=== PATIENT | female | born 1955 | race Caucasian/White ===

== ENCOUNTER → 2017-04-29 | Outpatient (CLI) | payer BC ==
--- NOTE | 2017-04-29 08:31 | WOMENS IMAGING REPORT ---
EXAM DESCRIPTION: BILAT SCREENING MAMMO W/CAD COMPLETED DATE/TIME: 04/29/2017 8:01 am REASON FOR STUDY: Z12.31, ROUTINE SCREENING MAMMO Z12.31 ENCNTR SCREEN MAMMOGRAM FOR MALIGNANT NEOP LASM OF EL COMPARISON: None. TECHNIQUE: Standard craniocaudal and mediolateral oblique views of each breast recorded using ORDISSIMOa l acquisition. LIMITATIONS: None. FINDINGS: RIGHT BREAST MASSES: No suspicious masses. CALCIFICATIONS: No new or suspicious calcifications. ARCHITECTURAL DISTORTION: None. DEVELOPING DENSITY: None. ASYMMETRY: None noted. OTHER: No other significant findings. LEFT BREAST MASSES: No suspicious masses. CALCIFICATIONS: Calcifications in the MLO view either in the axial or or axillary tail of the breast. 13 cm the nipple. Other possibility is that this represents artifact from deodorant or powder. ARCHITECTURAL DISTORTION: None. DEVELOPING DENSITY: None. ASYMMETRY: None noted. OTHER: No other significant findings. Read with the assistance of CAD. .[facility] - R2 Cenova Version 1.3 .[facility] Imaging - R2 Cenova Version 1.3 .[facility] - R2 Cenova Version 2.4 .[facility] - R2 Cenova Version 2.4 .[facility] - R2 Tug Hand Version 9.2 IMPRESSION: Calcifications versus artifact left MLO view likely axillary tail or axilla. BREAST DENSITY: b. There are scattered areas of fibroglandular density. BIRAD: 0 Incomplete: Needs Additional Imaging Evaluation and/or prior Mammograms for Comparison. RECOMMENDATION: RECOMMENDED FOLLOW-UP: Repeat MLO and mL. Magnification imaging if indicated. The patient will be contacted for additional imaging. COMMENT: The patient has been notified of the results by letter per SA requirements. Additional no tification policies are in place for contacting patient with suspicious or incomplete findings. Quality ID #[id number]: The [employer] recommends an annual screening mammogram for women aged 40 years or over. This facility utilizes a reminder system to ensure that all patients receive reminder letters, and/or direct phone calls for appointments. This includes reminders for routine scr eening mammograms, diagnostic mammograms, or other Breast Imaging Interventions when appropriate. Th is patient will be placed in the appropriate reminder system. The [employer] (ACR) has developed recommendations for screening MRI of the breast s in certain patient populations, to be used in conjunction with mammography. Breast MRI surveillanc e may be appropriate for women with more than 20% lifetime risk of developing breast cancer as deter mined by genetic testing, significant family history of the disease, or history of mantle radiation f or Hodgkins Disease. ACR Practice Guidelines 2008. TECHNICAL DOCUMENTATION: FINDING NUMBER: (1) ASSESSMENT: (1) JOB ID: [id number] [employer]- All Rights Reserved
== END ==
LOC: WI 07:14
PROVIDERS: ATTEND Nurse Practitioner
DX: Z12.31 Encounter for screening mammogram for malignant neoplasm of breast (principal); R92.0 Mammographic microcalcification found on diagnostic imaging of breast
CPT/HCPCS: 77067; G0202

== ENCOUNTER → 2017-05-11 | Outpatient (CLI) | payer BC ==
--- NOTE | 2017-05-11 15:24 | WOMENS IMAGING REPORT ---
EXAM DESCRIPTION: LEFT DIG DX MAMMO NO CHG COMPLETED DATE/TIME: 05/11/2017 10:05 am REASON FOR STUDY: INCONCLUSIVE MAMMO;R92.2 R92.0 MAMMOGRAPHIC MICROCALCIFICATION FOUND ON DX IMAGIN G OF COMPARISON: 04/29/2017 and 01/03/2016. TECHNIQUE: Additional images include a true lateral view, MLO view, and exaggerated CCL view. The s tudy was obtained after the skin of the axilla was cleansed to remove any underlying deodorant and/or powder. LIMITATIONS: None. FINDINGS: BREAST: left MASSES: No suspicious masses. CALCIFICATIONS: No new or suspicious calcifications. Previous mammographic findings no longer presen t. ARCHITECTURAL DISTORTION: None. DEVELOPING DENSITY: None. ASYMMETRY: None noted. OTHER: No other significant findings. IMPRESSION: Findings noted on screening mammography are not apparent on the repeat study, consistent with artifact due to deodorant or powder on the skin. BREAST DENSITY: c. The breasts are heterogeneously dense, which may obscure small masses. BIRAD: 1 Negative. RECOMMENDATION: RECOMMENDED FOLLOW UP: Birads 1 or 2: The patient should resume routine screening . SPECIFIC INTERVENTION/IMAGING/CONSULTATION RECOMMENDED:No additional intervention/ imaging/consultati on needed at this time. COMMUNICATION:The negative/benign results were communicated to the patient. COMMENT: The patient has been notified of the results by letter per SA requirements. Additional no tification policies are in place for contacting patient with suspicious or incomplete findings. Quality ID #[id number]: The [employer] recommends an annual screening mammogram for women aged 40 years or over. This facility utilizes a reminder system to ensure that all patients receive reminder letters, and/or direct phone calls for appointments. This includes reminders for routine scr eening mammograms, diagnostic mammograms, or other Breast Imaging Interventions when appropriate. Th is patient will be placed in the appropriate reminder system. The [employer] (ACR) has developed recommendations for screening MRI of the breast s in certain patient populations, to be used in conjunction with mammography. Breast MRI surveillanc e may be appropriate for women with more than 20% lifetime risk of developing breast cancer as deter mined by genetic testing, significant family history of the disease, or history of mantle radiation f or Hodgkins Disease. ACR Practice Guidelines 2008. TECHNICAL DOCUMENTATION: FINDING NUMBER: (1) ASSESSMENT: (1) JOB ID: [id number] [facility] [employer]- All Rights Reserved
== END ==
LOC: WI 09:07
PROVIDERS: ATTEND Nurse Practitioner
DX: R92.2 Inconclusive mammogram (principal)

== ENCOUNTER 2018-03-08 06:55 | Inpatient (IN) | payer BC ==
[2018-03-08] MEDS ORDERED: FENTANYL CITRATE INJ/PF 100 MCG/2 ML AMPUL IV ONE ×3 (07:17→13:30)
[2018-03-08] MEDS ORDERED: ONDANSETRON HCL INJ/PF 4 MG/2 ML SDV IV ONE (07:17)
--- NOTE | 2018-03-08 07:20 | ER Document Report ---
ED General - General Chief Complaint: Hip Pain Stated Complaint: FALL,HIP PAIN Time Seen by Provider: 03/08/18 07:04 Mode of Arrival: Medic Information source: Patient Notes: 62-year-old female with a history of hypertension, depression, anxiety [place] the airport with complaint of left hip and left leg pain after a trip and fall. Patient states that she was attempting to put on her shoes after going through security when she lost her balance and fell on her left side. She denies any head injury or loss of consciousness. She denies prior injury to this leg. She denies any preceding dizziness, visual changes, nausea , diaphoresis, chest pain, shortness of breath, abdominal pain, back pain, dysuria, hematuria, fever, chills. Patient states that she is on her way to see her daughter who is being induced in [place] and that security thought that she had "explosives on me". TRAVEL OUTSIDE OF THE [place] IN LAST 30 DAYS: No COUNTRY TRAVELED TO/FROM: [facility] Onset: Just prior to arrival Onset/Duration: Sudden Quality of pain: Achy, Throbbing Severity: Moderate Pain Level: 2 Associated symptoms: None Exacerbated by: Movement Relieved by: Remaining still Similar symptoms previously: No Recently seen / treated by doctor: No - Related Data Allergies/Adverse Reactions: oxycodone [Oxycodone] Adverse Reaction (Severe, Verified 11/06/14 14:33) nausea/vomiting Past Medical History - General Information source: Patient - Social History Smoking Status: Unknown if Ever Smoked Chew tobacco use (# tins/day): No Frequency of alcohol use: None Drug Abuse: None Family History: Reviewed & Not Pertinent Patient has suicidal ideation: No Patient has homicidal ideation: No - Past Medical History Cardiac Medical History: Reports: Hx Hypertension - meds 14 yrs Denies: Hx Coronary Artery Disease, Hx Heart Attack Pulmonary Medical History: Reports: Hx Pneumonia - walking 1993 Denies: Hx Asthma, Hx Bronchitis, Hx COPD Neurological Medical History: Denies: Hx Cerebrovascular Accident, Hx Seizures Renal/ Medical History: Denies: Hx Peritoneal Dialysis Musculoskeltal Medical History: Reports Hx Arthritis - hand/ left numb Past Surgical History: Reports: Hx Section - x2, Hx Hysterectomy - Immunizations Hx Diphtheria, Pertussis, Tetanus Vaccination: No Review of Systems - Review of Systems Notes: She denies any preceding dizziness, visual changes, nausea, diaphoresis, chest pain, shortness of breath, abdominal pain, back pain, dysuria, hematuria, fever , chills. Physical Exam - Vital signs Vitals: Temp Pulse Resp BP Pulse Ox 98.6 F 60 18 110/62 100 03/08/18 06:58 03/08/18 06:58 03/08/18 06:58 03/08/18 06:58 03/08/18 06:58 Interpretation: Normal. No: Hypertensive, Tachycardic, Hypoxic, Tachypneic, Febrile - Notes Notes: PHYSICAL EXAMINATION: GENERAL: Well-appearing, well-nourished and in no acute distress. HEAD: Atraumatic, normocephalic. EYES: Pupils equal round and reactive to light, extraocular movements intact, conjunctiva are normal. ENT: Nares patent, oropharynx clear without exudates. Moist mucous membranes. NECK: Normal range of motion, supple without lymphadenopathy LUNGS: Breath sounds clear to auscultation bilaterally and equal. No wheezes rales or rhonchi. HEART: Regular rate and rhythm without murmurs ABDOMEN: Soft, nontender, nondistended abdomen. No guarding, no rebound. No masses appreciated. Female : deferred Musculoskeletal: Decreased range of motion of the left hip, no obvious deformity , DP pulse intact, patient able to wiggle her toes. Tenderness to palpation over the left greater trochanter. No pitting or edema. No cyanosis. NEUROLOGICAL: Cranial nerves grossly intact. Normal speech, normal gait. Normal sensory, motor exams PSYCH: Normal mood, normal affect. SKIN: Warm, Dry, normal turgor, no rashes or lesions noted. Course - Re-evaluation Re-evalutation: Laboratory 03/08/18 03/08/18 03/08/18 06:39 06:39 06:39 WBC 5.7 RBC 4.16 Hgb 13.6 Hct 39.9 MCV 96 MCH 32.6 MCHC 34.0 RDW 12.9 Plt Count 100 L Seg Neutrophils % 47.8 Lymphocytes % 37.5 Monocytes % 11.5 Eosinophils % 2.4 Basophils % 0.8 Absolute Neutrophils 2.7 Absolute Lymphocytes 2.2 Absolute Monocytes 0.7 Absolute Eosinophils 0.1 Absolute Basophils 0.0 PT 14.9 INR 1.12 APTT 32.1 Sodium 145.5 H Potassium 3.8 Chloride 108 H Carbon Dioxide 23 Anion Gap 15 BUN 12 Creatinine 0.63 Est GFR ( Amer) > 60 Est GFR (Non-Af Amer) > 60 Glucose 128 H Calcium 9.5 Total Bilirubin 0.5 Direct Bilirubin 0.5 H Neonat Total Bilirubin Not Reportable Neonat Direct Bilirubin Not Reportable Neonat Indirect Bili Not Reportable AST 43 H ALT 35 Alkaline Phosphatase 103 Total Protein 7.3 Albumin 4.0 Serum Alcohol 159 Pelvis X-Ray 03/08/18 07:16 IMPRESSION: Acute left proximal femoral intertrochanteric fracture. Femur X-Ray 03/08/18 07:17 IMPRESSION: Acute left proximal femoral intertrochanteric fracture with moderate varus angulation 03/08/18 07:24 62-year-old female with a history of hypertension, depression, anxiety presents via EMS from the airport with complaint of left hip and left leg pain after a trip and fall. Patient states that she was attempting to put on her shoes after going through security when she lost her balance and fell on her left side. She denies any head injury or loss of consciousness. Vital signs stable upon arrival. Patient does not appear toxic or dehydrated. She is in no acute distress. Patient did receive fentanyl, Zofran. Imaging of her left hip pending. 03/08/18 08:33 Patient made aware of the findings of a left hip fracture. She requests that I speak to her doctor Dr. Escamilla. I did attempt to contact her PCP and was told she is out of the office for the rest of the week with no one covering. The nurse product marketing programs manager suggested that patient be transferred to [facility]. I did discuss this with the patient who is hesitant and will let me know when she talks to her daughter. Patient requesting additional pain medication. 03/08/18 08:44 Patient now wants to stay here at [facility]. I have attempted to contact Dr. Espinal orthopedic surgeon on-call. Awaiting return call. Patient still complaining of pain additional fentanyl was administered. 03/08/18 09:[address] Espinal who is requesting hospitalist admission with Ortho consult. Patient reports her last meal was 1 day prior to arrival. 03/08/18 09:24 Patient accepted by hospitalist. - Vital Signs Vital signs: Temp Pulse Resp BP Pulse Ox 98.6 F 60 18 110/62 100 03/08/18 06:58 03/08/18 06:58 03/08/18 06:58 03/08/18 06:58 03/08/18 06:58 - Laboratory Result Diagrams: 03/08/18 06:39 03/08/18 06:39 Laboratory results interpreted by me: 03/08/18 03/08/18 06:39 06:39 Plt Count 100 L Sodium 145.5 H Chloride 108 H Glucose 128 H Direct Bilirubin 0.5 H AST 43 H - Diagnostic Test Radiology reviewed: Image reviewed Discharge - Discharge Clinical Impression: Intertrochanteric fracture of femur Qualifiers: Encounter type: initial encounter Fracture type: closed Fracture alignment: displaced Laterality: left Qualified Code(s): S72.142A - Displaced intertrochanteric fracture of left femur, initial encounter for closed fracture Fall Qualifiers: Encounter type: initial encounter Qualified Code(s): W19.XXXA - Unspecified fall, initial encounter Condition: Good Disposition: ADMITTED INPATIENT Admitting Provider: Hospitalist
[2018-03-08 08:07] LABS: ABSOLUTE EOSINOPHILS # (AUTO) 0.1 10^3/uL (0.0-0.6); ABSOLUTE LYMPHOCYTES (AUTO) 2.2 10^3/uL (0.5-4.7); ABSOLUTE MONOCYTES (AUTO) 0.7 10^3/uL (0.1-1.4); ABSOLUTE NEUT (AUTO) 2.7 10^3/uL (1.7-8.2); BASOPHILS % (AUTO) 0.8 % (0-2); EOSINOPHILS % (AUTO) 2.4 % (0-6); HEMATOCRIT 39.9 % (36.0-47.0); HEMOGLOBIN 13.6 g/dL (12.0-15.5); LYMPHOCYTES % (AUTO) 37.5 % (13-45); MEAN CORPUSCULAR HEMOGLOBIN 32.6 pg (27.0-33.4); MEAN CORPUSCULAR VOLUME 96 fl (80-97); MONOCYTES % (AUTO) 11.5 % (3-13); PLATELET COUNT 100 10^3/uL (150-450); RED BLOOD COUNT 4.16 10^6/uL (3.72-5.28); RED CELL DISTRIBUTION WIDTH 12.9 % (11.5-14.0); SEGMENTED NEUTROPHILS % (AUTO) 47.8 % (42-78); TOTAL CELLS COUNTED % (AUTO) 100 %; WHITE BLOOD COUNT 5.7 10^3/uL (4.0-10.5)
[2018-03-08 08:11] LABS: INTERNATIONAL RATION (INR) 1.12; PROTHROMBIN TIME 14.9 SEC (11.4-15.4)
[2018-03-08 08:12] LABS: PARTIAL THROMBOPLASTIN TIME 32.1 SEC (23.5-35.8)
[2018-03-08 08:15] LABS: ALANINE AMINOTRANSFERASE 35 U/L (9-52); ALCOHOL 159 mg/dL (NONE DETECTED); ALKALINE PHOSPHATASE 103 U/L (38-126); ANION GAP 15 (5-19); ASPARTATE AMINO TRANSFERASE 43 U/L (14-36); BILIRUBIN,DIRECT 0.5 mg/dL (0.0-0.4); BILIRUBIN,TOTAL 0.5 mg/dL (0.2-1.3); BLOOD UREA NITROGEN 12 mg/dL (7-20); CALCIUM 9.5 mg/dL (8.4-10.2); CARBON DIOXIDE 23 mmol/L (22-30); CHLORIDE 108 mmol/L (98-107); GLUCOSE 128 mg/dL (75-110); POTASSIUM 3.8 mmol/L (3.6-5.0); SODIUM 145.5 mmol/L (137-145); TOTAL PROTEIN 7.3 g/dL (6.3-8.2)
--- NOTE | 2018-03-08 09:08 | RADIOLOGY REPORT (SQ) ---
EXAM DESCRIPTION: PELVIS AP COMPLETED DATE/TIME: 03/08/2018 7:44 am REASON FOR STUDY: fall COMPARISON: Left femur films same date NUMBER OF VIEWS: One view TECHNIQUE: AP Pelvis LIMITATIONS: None. FINDINGS: MINERALIZATION: Osteopenic HIPS: Acute left femoral intertrochanteric proximal femur fracture with moderate varus angulation. R eport called to the emergency room to the patient's nurse at the time of dictation. Right hip intact. PELVIS AND SACRUM: No acute fracture or dislocation. No worrisome bone lesions. PUBIS AND ISCHIUM: No acute fracture. LOWER LUMBAR SPINE: Bilateral facet arthropathy at L4-5 and L5-S1. SOFT TISSUES: Clips right upper quadrant post cholecystectomy OTHER: No other significant finding. IMPRESSION: Acute left proximal femoral intertrochanteric fracture. COMMENT: Matrix TECHNICAL DOCUMENTATION: JOB ID: [id number] [employer]- All Rights Reserved Reading location - IP/workstation name: [email or web address]
--- NOTE | 2018-03-08 09:09 | RADIOLOGY REPORT (SQ) ---
EXAM DESCRIPTION: FEMUR LEFT COMPLETED DATE/TIME: 03/08/2018 7:44 am REASON FOR STUDY: fall COMPARISON: None. NUMBER OF VIEWS: Two views. TECHNIQUE: Two radiographic images acquired of the left femur to include hip and knee in at least on e projection. LIMITATIONS: None. FINDINGS: MINERALIZATION: Osteopenic BONES: Acute left proximal femoral intertrochanteric fracture with moderate varus angulation. SOFT TISSUES: No obvious swelling or foreign body. OTHER: No other significant finding. IMPRESSION: Acute left proximal femoral intertrochanteric fracture with moderate varus angulation COMMENT: Matrix TECHNICAL DOCUMENTATION: JOB ID: [id number] [employer]- All Rights Reserved Reading location - IP/workstation name: [email or web address]
[2018-03-08] MEDS ORDERED: RINGERS SOLUTION,LACTATED 1,000 ML IV PRN ×2 (10:29→17:26)
[2018-03-08 11:37] LABS: APPEARANCE,URINE SLIGHTLY-CLOUDY; BILIRUBIN,URINE NEGATIVE (NEGATIVE); COLOR,URINE YELLOW; GLUCOSE, URINE NEGATIVE (NEGATIVE); KETONES,URINE NEGATIVE (NEGATIVE); LEUKOCYTE ESTERASE,URINE NEGATIVE (NEGATIVE); NITRITE,URINE NEGATIVE (NEGATIVE); PROTEIN,URINE NEGATIVE (NEGATIVE); URINE SPECIFIC GRAVITY 1.011; UROBILINOGEN,URINE NEGATIVE mg/dL (<2.0)
[2018-03-08 11:49] LABS: URINE AMPHETAMINES SCREEN NEGATIVE; URINE BARBITURATES SCREEN NEGATIVE; URINE BENZODIAZEPINES SCREEN UNCONFIRMED POSITIVE; URINE COCAINE SCREEN NEGATIVE; URINE MARIJUANA (THC) SCREEN NEGATIVE; URINE METHADONE SCREEN NEGATIVE; URINE PHENCYCLIDINE SCREEN NEGATIVE
--- NOTE | 2018-03-08 13:31 | EKG REPORT ---
SEVERITY:- ABNORMAL ECG - SINUS RHYTHM PROBABLE LEFT ATRIAL ABNORMALITY BORDERLINE INFERIOR Q WAVES BORDERLINE PROLONGED QT INTERVAL : Confirmed by: Rio Breen MD 08-Mar-2018 13:30:27
[2018-03-08] MEDS ORDERED: DEXTROSE 40% GEL 15 GM TUBE PO PRN ×2 (17:07)
[2018-03-08] MEDS ORDERED: GLUCAGON,HUMAN RECOMB 1 MG INJ SUBCUT PRN (17:07)
[2018-03-08] MEDS ORDERED: DEXTROSE 50%-WATER 25 GM/50 ML DISP.SYRIN IV PRN ×2 (17:07)
--- NOTE | 2018-03-08 17:07 | PDOC CONSULTATION ---
Consultation Consult Date: 03/08/18 History of Present Illness Admission Date/PCP: 03/08/18 11:13 Patient complains of: Left Hip Pain History of Present Illness: YEVGENIY ODONNELL is a 62 year old female who was preparing to fly to [place] for the induction of her grand child. When apparently she sustained a fall onto her left hip during security at the airport. Patient had significant pain and inability to weight-bear. She was brought to the emergency room where x- rays demonstrated a fracture. Patient denies numbness or tingling. Pain / . Pain has improved with fentanyl but only short-lived. Past Medical History Cardiac Medical History: Reports: Hypertension - meds 14 yrs Denies: Coronary Artery Disease, Myocardial Infarction Pulmonary Medical History: Reports: Pneumonia - walking 1993 Denies: Asthma, Bronchitis, Chronic Obstructive Pulmonary Disease (COPD) Neurological Medical History: Denies: Seizures Musculoskeltal Medical History: Reports: Arthritis - hand/ left numb Hematology: Denies: Anemia Past Surgical History Past Surgical History: Reports: Section - x2, Hysterectomy Social History Smoking Status: Unknown if Ever Smoked Family History Family History: Reviewed & Not Pertinent Parental Family History Reviewed: No Children Family History Reviewed: No Sibling(s) Family History Reviewed.: No Medication/Allergy Home Medications: Bupropion HCl [Wellbutrin Xl 150 mg 24hr Tablet] 150 mg PO DAILY 03/08/18 Butalb/Acetaminophen/Caffeine [Fioricet (50-325-40 mg) Tablet] 1 tab PO Q6HP PRN 03/08/18 Citalopram Hydrobromide [Celexa 20 mg Tablet] 20 mg PO QHS 03/08/18 Diazepam [Valium 5 mg Tablet] 5 mg PO DAILYP PRN 03/08/18 Hydrochlorothiazide [Hydrodiuril 25 mg Tablet] 25 mg PO QAM 03/08/18 Rizatriptan Benzoate [Maxalt] 10 mg PO ASDIR PRN 03/08/18 Topiramate [Topamax] 150 mg PO QHS 03/08/18 Allergies/Adverse Reactions: oxycodone [Oxycodone] Adverse Reaction (Severe, Verified 11/06/14 14:33) nausea/vomiting Review of Systems Constitutional: ABSENT: chills, fever(s), headache(s), weight gain, weight loss Eyes: ABSENT: visual disturbances Ears: ABSENT: hearing changes Cardiovascular: ABSENT: chest pain, dyspnea on exertion, edema, orthropnea, palpitations Respiratory: ABSENT: cough, hemoptysis Gastrointestinal: ABSENT: abdominal pain, constipation, diarrhea, hematemesis, hematochezia, nausea, vomiting Genitourinary: ABSENT: dysuria, hematuria Musculoskeletal: PRESENT: as per HPI Integumentary: ABSENT: rash, wounds Neurological: ABSENT: abnormal gait, abnormal speech, confusion, dizziness, focal weakness, syncope Psychiatric: ABSENT: anxiety, depression, homidical ideation, suicidal ideation Endocrine: ABSENT: cold intolerance, heat intolerance, menstrual abnormalities, polydipsia, polyuria Hematologic/Lymphatic: ABSENT: easy bleeding, easy bruising, lymphadenopathy Physical Exam Vital Signs: Temp Pulse Resp BP Pulse Ox 98.6 F 60 18 110/62 100 03/08/18 06:58 03/08/18 06:58 03/08/18 06:58 03/08/18 06:58 03/08/18 06:58 General appearance: PRESENT: no acute distress, well-developed, well-nourished Head exam: PRESENT: atraumatic, normocephalic Eye exam: PRESENT: conjunctiva pink, EOMI, PERRLA. ABSENT: scleral icterus Ear exam: PRESENT: normal external ear exam Mouth exam: PRESENT: dry mucosa, moist, tongue midline Neck exam: PRESENT: full ROM. ABSENT: carotid bruit, JVD, lymphadenopathy, thyromegaly Respiratory exam: PRESENT: unlabored Cardiovascular exam: PRESENT: RRR. ABSENT: diastolic murmur, rubs, systolic murmur Pulses: PRESENT: normal dorsalis pedis pul, +2 pedal pulses bilateral Vascular exam: PRESENT: normal capillary refill GI/Abdominal exam: PRESENT: normal bowel sounds, soft. ABSENT: distended, guarding, mass, organolmegaly, rebound, tenderness Rectal exam: PRESENT: deferred Musculoskeletal exam: PRESENT: other - Left hip: Short and externally rotated. Positive logroll. Intact plantar flexion/dorsiflexion. No sensory deficits. Limb length inequality noted. Dorsalis pedis pulse 2+. Notable swelling. Compartments soft and compressible no sign of compartment syndrome. Neurological exam: PRESENT: alert, awake, oriented to person, oriented to place , oriented to time, oriented to situation, CN II-XII grossly intact. ABSENT: motor sensory deficit Psychiatric exam: PRESENT: appropriate affect, normal mood. ABSENT: homicidal ideation, suicidal ideation Skin exam: PRESENT: dry, intact, warm. ABSENT: cyanosis, rash Results Impressions: Pelvis X-Ray 03/08/18 07:16 IMPRESSION: Acute left proximal femoral intertrochanteric fracture. Femur X-Ray 03/08/18 07:17 IMPRESSION: Acute left proximal femoral intertrochanteric fracture with moderate varus angulation Status: Image reviewed by me - I have reviewed patient's radiographs which demonstrate comminuted proximal peritrochanteric hip fracture with varus displacement. Assessment & Plan - Diagnosis (1) Intertrochanteric fracture of femur Qualifiers: Encounter type: initial encounter Fracture type: closed Fracture alignment: displaced Laterality: left Qualified Code(s): S72.142A - Displaced intertrochanteric fracture of left femur, initial encounter for closed fracture Is this a current diagnosis for this admission?: Yes Plan: Patient's radiographs demonstrate intertrochanteric left hip fracture. We discussed treatment options I have recommended operative intervention. Postoperative expectations, prognosis and outcomes have been explained to the patient including decreased ambulatory status, chronic pain and prolonged rehabilitation. Patient has verbalized understanding and consented for the procedure. Further risks include anesthetic complications, excessive bleeding, infection, injury to surrounding nerves, vessels and tendons, bruising, healing difficulties, scar formation, posttraumatic arthritis and any unforseen complication. Patient also understands she will likely require rehabilitation as an inpatient postoperatively. Plan will be to proceed with operative intervention of 03/09/18.
[2018-03-08] MEDS ORDERED: (PENDING PHARMACY ID) (Rizatriptan Benzoate [Maxalt] 10 MG) PO PRN (17:28)
[2018-03-08] MEDS ORDERED: ONDANSETRON HCL INJ/PF 4 MG/2 ML SDV IV PRN (17:30)
--- NOTE | 2018-03-08 17:35 | PDOC H&P ---
History of Present Illness Admission Date/PCP: 03/08/18 11:13 Patient complains of: Fall and left hip pain History of Present Illness: This is a 62-year-old woman who lives locally. She has a daughter in [place] and another daughter in [place]. The daughter in [place] is preparing to be induced for the of her first child. The patient has been preparing to go spend a month in [place] to be there for the and to help after the . Patient states that she was awake all night last night. She went to the airport this morning and was taken through security several times. She did not know what was going on and then was finally told that the TSA staff thought that she was caring explosives. She unfortunately missed her flight because of this. He was putting her shoes back on after being searched a final time she fell onto her left hip and sustained severe pain. EMS was called from the airport and she was brought to the [facility] for evaluation. She is found to have a left hip fracture. She is being admitted to the hospitalist service. Past Medical History Cardiac Medical History: Reports: Hypertension - meds 15 yrs Denies: Coronary Artery Disease, Myocardial Infarction Pulmonary Medical History: Reports: Pneumonia - walking 1993 Denies: Asthma, Bronchitis, Chronic Obstructive Pulmonary Disease (COPD) Neurological Medical History: Reports: Migraine, Other - Bilateral upper extremity tremor of unknown etiology. Endocrine Medical History: Denies: Diabetes Mellitus Type 2 Renal/ Medical History: Denies: Chronic Kidney Disease Malignancy Medical History: Reports: None GI Medical History: Denies: Cirrhosis Musculoskeltal Medical History: Reports: Arthritis - hand/ left numb Skin Medical History: Reports: None Psychiatric Medical History: Reports: Depression, General Anxiety Disorder Hematology: Denies: Anemia Infectious Medical History: Reports: Hepatitis C, Other Infectious History Note: She has undergone treatment for hep C which is now cleared. 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 She has about a 79-hoot-ucxa history. Frequency of Alcohol Use: Occasional - Patient's alcohol level was elevated in the ER this morning. I asked her about her drinking habits so that we could treat her appropriately. She states that she was up all night and she drank may be a few glasses of wine. She states that alcohol is not a problem for her. I do not know if this is accurate. She has never had an alcohol withdrawal syndrome. Hx Recreational Drug Use: Yes - Many years ago patient was an IV drug user. - Advance Directive Resuscitation Status: Other - Patient has struggled with depression and she is being treated for depression. I asked her if her CODE STATUS is related to her depression. She states that she is very clear about wanting to a natural when the time comes. She states her daughters are aware of her CODE STATUS. Surrogate healthcare decision maker:: Daughters Family History Parental Family History Reviewed: Yes - Since father multiple people on his side of the family have migraines Children Family History Reviewed: Yes - Children are healthy Sibling(s) Family History Reviewed.: Yes - Patient's brother had a AAA Medication/Allergy Home Medications: Bupropion HCl [Wellbutrin Xl 150 mg 24hr Tablet] 150 mg PO DAILY 03/08/18 Butalb/Acetaminophen/Caffeine [Fioricet (50-325-40 mg) Tablet] 1 tab PO Q6HP PRN 03/08/18 Citalopram Hydrobromide [Celexa 20 mg Tablet] 20 mg PO QHS 03/08/18 Diazepam [Valium 5 mg Tablet] 5 mg PO DAILYP PRN 03/08/18 Hydrochlorothiazide [Hydrodiuril 25 mg Tablet] 25 mg PO QAM 03/08/18 Rizatriptan Benzoate [Maxalt] 10 mg PO ASDIR PRN 03/08/18 Topiramate [Topamax] 150 mg PO QHS 03/08/18 Allergies/Adverse Reactions: oxycodone [Oxycodone] Adverse Reaction (Severe, Verified 11/06/14 14:33) nausea/vomiting Review of Systems Constitutional: ABSENT: chills, fever(s), headache(s) Eyes: ABSENT: visual disturbances Ears: ABSENT: hearing changes Nose, Mouth, and Throat: ABSENT: headache(s), sore throat Cardiovascular: ABSENT: chest pain, dyspnea on exertion, edema Respiratory: ABSENT: cough, dyspnea, sputum Gastrointestinal: ABSENT: abdominal pain, constipation, diarrhea, nausea, vomiting Genitourinary: ABSENT: difficulty urinating, dysuria, hematuria Musculoskeletal: ABSENT: back pain, joint swelling, muscle weakness Integumentary: ABSENT: diaphoresis, rash Neurological: PRESENT: tremor(s), weakness. ABSENT: confusion, frequent falls, numbness Psychiatric: PRESENT: anxiety, depression Endocrine: ABSENT: cold intolerance, heat intolerance Hematologic/Lymphatic: ABSENT: easy bleeding, easy bruising Allergic/Immunologic: ABSENT: seasonal rhinorrhea Physical Exam Vital Signs: Temp Pulse Resp BP Pulse Ox 98.6 F 60 18 110/62 100 03/08/18 06:58 03/08/18 06:58 03/08/18 06:58 03/08/18 06:58 03/08/18 06:58 General appearance: PRESENT: no acute distress, cooperative, thin Head exam: PRESENT: atraumatic Eye exam: PRESENT: conjunctiva pink, EOMI. ABSENT: scleral icterus Mouth exam: PRESENT: neck supple Neck exam: ABSENT: lymphadenopathy Respiratory exam: PRESENT: clear to auscultation mariana, unlabored. ABSENT: rales , rhonchi, wheezes Cardiovascular exam: PRESENT: RRR. ABSENT: systolic murmur Pulses: ABSENT: normal radial pulses GI/Abdominal exam: PRESENT: normal bowel sounds, soft. ABSENT: distended, firm , guarding, tenderness Rectal exam: PRESENT: deferred Gentrourinary exam: PRESENT: indwelling catheter, other - Clear yellow urine in Marshall bag Extremities exam: ABSENT: pedal edema Musculoskeletal exam: PRESENT: other - Left leg length shorter than right, left leg externally rotated. Neurovascularly intact laterally. Neurological exam: PRESENT: alert, awake, oriented to person, oriented to place , oriented to situation, CN II-XII grossly intact Psychiatric exam: PRESENT: appropriate affect. ABSENT: anxious, flat affect Skin exam: PRESENT: dry, intact, warm Results Impressions: Pelvis X-Ray 03/08/18 07:16 IMPRESSION: Acute left proximal femoral intertrochanteric fracture. Femur X-Ray 03/08/18 07:17 IMPRESSION: Acute left proximal femoral intertrochanteric fracture with moderate varus angulation Assessment & Plan - Diagnosis (1) Fracture, intertrochanteric, left femur Is this a current diagnosis for this admission?: Yes Plan: Patient has been seen by orthopedic surgeon who will operate tomorrow. She is n.p.o. at midnight. DVT prophylaxis will be 1 dose of heparin 5000 units subcu now and then we will reevaluate postoperatively. (2) Depression with anxiety Is this a current diagnosis for this admission?: Yes Plan: Continue citalopram and diazepam as needed (3) Hypertension Is this a current diagnosis for this admission?: Yes Plan: Patient is currently normotensive. Will restart her home medications. (4) Alcohol use Is this a current diagnosis for this admission?: Yes Plan: Patient had an elevated blood alcohol level this morning that reflected recent alcohol intake. She states she was up all night and maybe had a few glasses of wine. She denies that she has an alcohol abuse problem. We will monitor closely for signs and symptoms of withdrawal. She has mild transaminitis. (5) Transaminitis Is this a current diagnosis for this admission?: Yes Plan: Slightly elevated AST. Possibly secondary to alcohol use disorder. Patient also has a history of hep C which is been treated she states that it is cleared. (6) Hypernatremia Is this a current diagnosis for this admission?: Yes Plan: Likely due to dehydration. I started patient on normal saline and she will continue on IV fluids until the surgery. (7) Acute pain due to injury Is this a current diagnosis for this admission?: Yes Plan: Significant left hip pain. She cannot take oxycodone as it makes her very nauseated. She has been receiving fentanyl 50 mics doses in the ER. This has been very effective. I started her on a fentanyl patch 50 mics per hour and given precautions and parameters to nursing staff related to opioid use. - Time Time Spent: Greater than 70 Minutes Medications reviewed and adjusted accordingly: Yes Anticipated discharge: Acute Rehab - Inpatient Certification Based on my medical assessment, after consideration of the patient's comorbidities, presenting symptoms, or acuity I expect that the services needed warrant INPATIENT care.: Yes I certify that my determination is in accordance with my understanding of Medicare's requirements for reasonable and necessary INPATIENT services [42 CFR 412.3e].: Yes Medical Necessity: Significant Comorbidiites Make Outpatient Treatment Too Risky , Need Close Monitoring Due to Risk of Patient Decompensation, Need For IV Fluids, Need for Surgery, Risk of Complication if Not Cared For in Hospital
[2018-03-08] MEDS ORDERED: FENTANYL 100 MCG/HR PATCH.TD72 TD ONE (18:00)
[2018-03-08] MEDS ORDERED: HEPARIN SOD (PORCINE) 5,000 UNIT/ML 1 ML SYRINGE SUBCUT ONE (18:00)
[2018-03-08] MEDS: BUPROPION HCL 75 MG TABLET PO SCH (20:44)
[2018-03-08] MEDS: TOPIRAMATE 100 MG TABLET PO SCH (20:45)
[2018-03-08] MEDS: CITALOPRAM HYDROBROMIDE 20 MG TABLET PO SCH (20:45)
[2018-03-08] MEDS ORDERED: (PENDING PHARMACY ID) (Topiramate [Topamax] 150 MG) PO SCH (22:00)
[2018-03-08] MEDS: DIAZEPAM 5 MG TABLET PO PRN (23:25)
[2018-03-09] MEDS ORDERED: ACETAMINOPHEN 325 MG TABLET PO PRN (05:09)
[2018-03-09 07:06] LABS: HEMATOCRIT 38.2 % (36.0-47.0); MEAN CORPUSCULAR HEMOGLOBIN 32.7 pg (27.0-33.4); MEAN CORPUSCULAR HGB CONC 34.1 g/dL (32.0-36.0); MEAN CORPUSCULAR VOLUME 96 fl (80-97); RED BLOOD COUNT 3.98 10^6/uL (3.72-5.28); RED CELL DISTRIBUTION WIDTH 12.9 % (11.5-14.0); WHITE BLOOD COUNT 7.4 10^3/uL (4.0-10.5)
[2018-03-09 07:27] LABS: ALANINE AMINOTRANSFERASE 32 U/L (9-52); ALBUMIN 3.7 g/dL (3.5-5.0); ALKALINE PHOSPHATASE 55 U/L (38-126); ANION GAP 9 (5-19); ASPARTATE AMINO TRANSFERASE 38 U/L (14-36); BILIRUBIN,DIRECT 0.5 mg/dL (0.0-0.4); BILIRUBIN,TOTAL 1.4 mg/dL (0.2-1.3); BLOOD UREA NITROGEN 15 mg/dL (7-20); CALCIUM 8.4 mg/dL (8.4-10.2); CARBON DIOXIDE 26 mmol/L (22-30); CHLORIDE 106 mmol/L (98-107); GLUCOSE 128 mg/dL (75-110); POTASSIUM 3.7 mmol/L (3.6-5.0); TOTAL PROTEIN 6.8 g/dL (6.3-8.2)
[2018-03-09 07:56] LABS: PLATELET COUNT 85 10^3/uL (150-450)
[2018-03-09] MEDS ORDERED: NALOXONE HCL INJ/PF 0.4 MG/1 ML SDV ONE ×3 (08:38→13:46)
[2018-03-09] MEDS ORDERED: (PENDING PHARMACY ID) (Bupropion Hcl [Wellbutrin Xl 150 Mg 24hr Tablet] 150 MG) PO SCH (10:00)
[2018-03-09] MEDS: BUPROPION HCL 75 MG TABLET PO SCH ×2 (10:58→22:00)
[2018-03-09] MEDS ORDERED: SUCCINYLCHOLINE CHLORIDE INJ 200 MG/10 ML VIAL ONE (12:11)
[2018-03-09 14:33] LABS: ARTERIAL BLOOD BASE EXCESS -0.1 mmol/L; ARTERIAL BLOOD H2CO3 1.16 mmol/L (1.05-1.35); ARTERIAL BLOOD HCO3 24.2 mmol/L (20-26); ARTERIAL BLOOD O2 SATURATION 96.8 % (94-98); ARTERIAL BLOOD PCO2 38.5 mmHg (35-45); ARTERIAL BLOOD PH 7.42 (7.35-7.45); ARTERIAL BLOOD PO2 87.1 mmHg (80-100); ARTERIAL BLOOD TOTAL CO2 25.4 mmol/L (21-25)
[2018-03-09 14:43] LABS: ARTERIAL BLOOD FIO2 ROOM AIR
[2018-03-09] MEDS ORDERED: KETAMINE HCL INJ 500 MG/10 ML VIAL ONE (15:52)
[2018-03-09] MEDS ORDERED: FENTANYL CITRATE INJ/PF 100 MCG/2 ML AMPUL ONE ×2 (15:52)
[2018-03-09] MEDS ORDERED: MIDAZOLAM 2 MG/2 ML INJ ONE (15:53)
[2018-03-09] MEDS ORDERED: ACETAMINOPHEN 100 ML IV ONE (15:54)
[2018-03-09] MEDS ORDERED: EPHEDRINE SULFATE INJ 50 MG/1 ML AMPULE ONE (15:54)
[2018-03-09] MEDS ORDERED: PROPOFOL INJ 200 MG/20 ML VIAL IV ONE (15:54)
[2018-03-09] MEDS ORDERED: TETRACAINE HCL/PF 20MG/2ML AMPULE (SPINAL) ONE (16:19)
[2018-03-09] MEDS ORDERED: CEFAZOLIN INJ 1 GM VIAL ONE (16:36)
[2018-03-09] MEDS ORDERED: DIPHENHYDRAMINE HCL 50 MG/ML VIAL IV PRN ×2 (18:02→18:53)
[2018-03-09] MEDS ORDERED: PROMETHAZINE HCL INJ 25 MG/1 ML VIAL IV PRN (18:02)
[2018-03-09] MEDS ORDERED: FENTANYL CITRATE INJ/PF 100 MCG/2 ML AMPUL IV PRN (18:02)
[2018-03-09] MEDS ORDERED: MEPERIDINE HCL/PF INJ 25 MG/1 ML DISP.SYRIN IV PRN (18:02)
--- NOTE | 2018-03-09 18:16 | PDOC PROGRESS REPORT ---
Subjective Progress Note for:: 03/09/18 Subjective:: I was notified by the nursing staff this morning that the patient was obtunded and would not respond to a sternal rub. Her respirations were quite low below 10. She was admitted with a hip fracture and is scheduled to have surgery this evening. The admitting physician placed her on a 50 mcg fentanyl patch as she had uncontrolled pain. Over the course of the day the patient has required 3 doses of Narcan. By the time I am dictating this note she is more awake. When I saw the patient she had just woken up the first time we gave her Narcan. She knew that she was in the hospital. She knew what her name was. She did not appear to be in acute pain. She was somewhat chilled. It was difficult to get a full review of systems. Reason For Visit: LEFT HIP FRACTURE,ALCOHOL INTOXICATION Physical Exam Vital Signs: Temp Pulse Resp BP Pulse Ox 98.7 F 69 6 L 87/66 L 93 03/09/18 12:00 03/09/18 14:00 03/09/18 12:00 03/09/18 12:00 03/09/18 12:00 Intake & Output 03/08/18 03/09/18 03/10/18 06:59 06:59 06:59 Intake Total 1737 Output Total 300 Balance 1437 Weight 65.3 kg General appearance: PRESENT: disheveled, other - Somewhat groggy Head exam: PRESENT: atraumatic, normocephalic Mouth exam: PRESENT: moist, tongue midline Respiratory exam: PRESENT: clear to auscultation mariana. ABSENT: rales, rhonchi, wheezes Cardiovascular exam: PRESENT: RRR. ABSENT: diastolic murmur, rubs, systolic murmur GI/Abdominal exam: PRESENT: normal bowel sounds, soft. ABSENT: distended, guarding, mass, organolmegaly, rebound, tenderness Rectal exam: PRESENT: deferred Extremities exam: PRESENT: full ROM. ABSENT: calf tenderness, clubbing, pedal edema Musculoskeletal exam: PRESENT: ambulatory Neurological exam: PRESENT: awake, other - Somewhat groggy and somnolent. Psychiatric exam: PRESENT: appropriate affect, normal mood. ABSENT: homicidal ideation, suicidal ideation Skin exam: PRESENT: dry, intact, warm. ABSENT: cyanosis, rash Results Laboratory Results: 03/09/18 06:37 03/09/18 06:37 03/09/18 03/09/18 03/09/18 06:37 06:37 14:15 WBC 7.4 RBC 3.98 Hgb 13.0 Hct 38.2 MCV 96 MCH 32.7 MCHC 34.1 RDW 12.9 Plt Count 85 L Carbonic Acid 1.16 HCO3/H2CO3 Ratio 20:1 ABG pH 7.42 ABG pCO2 38.5 ABG pO2 87.1 ABG HCO3 24.2 ABG O2 Saturation 96.8 ABG Base Excess -0.1 FiO2 ROOM AIR Sodium 141.0 Potassium 3.7 Chloride 106 Carbon Dioxide 26 Anion Gap 9 BUN 15 Creatinine 0.53 Est GFR ( Amer) > 60 Est GFR (Non-Af Amer) > 60 Glucose 128 H Calcium 8.4 Total Bilirubin 1.4 H AST 38 H ALT 32 Alkaline Phosphatase 55 Total Protein 6.8 Albumin 3.7 Impressions: Pelvis X-Ray 03/08/18 07:16 IMPRESSION: Acute left proximal femoral intertrochanteric fracture. Femur X-Ray 03/08/18 07:17 IMPRESSION: Acute left proximal femoral intertrochanteric fracture with moderate varus angulation Assessment & Plan - Diagnosis (1) Fracture, intertrochanteric, left femur Is this a current diagnosis for this admission?: Yes Plan: She is scheduled for surgery this evening. (2) Adverse drug reaction Is this a current diagnosis for this admission?: Yes Plan: The patient had been placed on a 50 mcg fentanyl patch. She was narcotic pain angus prior to this hospitalization. She does have a history of drug use in the past but has not been on any narcotics in several years. Her fentanyl patches been stopped. We will use short acting narcotics going forward. She has been comfortable today. She is required 3 doses of Narcan today. (3) Alcohol abuse Is this a current diagnosis for this admission?: Yes Plan: The patient was intoxicated when she had her fall. This can be discussed after her surgery and when she wakes up some more. Currently no evidence of delirium tremens. (4) Elevated liver function tests Is this a current diagnosis for this admission?: Yes Plan: Possibly due to her alcohol use. Will check liver panel in the morning. (5) Hypertension Is this a current diagnosis for this admission?: Yes Plan: Currently on no medication. She became quite hypotensive during her episodes today. She did receive a 1 L fluid bolus. (6) Hypernatremia Is this a current diagnosis for this admission?: Yes Plan: She will have a level checked in the morning. (7) Acute pain due to injury Is this a current diagnosis for this admission?: Yes Plan: Her 50 mcg fentanyl patches been stopped. Hopefully her pain will be better controlled post surgery. We will need to be quite careful with narcotics. The patient's daughter has said that she is exquisitely sensitive to narcotic pain medications. (8) Thrombocytopenia Is this a current diagnosis for this admission?: Yes Plan: Of undetermined significance at this point (9) Full code status Is this a current diagnosis for this admission?: Yes - Time Time Spent with patient: 35 or more minutes - Inpatient Certification Medical Necessity: Other - Inpatient hospitalization remains necessary. The patient has a femur fracture requiring surgical repair. Pain control is an issue with this patient and she is exquisitely sensitive to narcotics. Timing of disposition will be determined by her clinical course
[2018-03-09] MEDS ORDERED: OXYCODONE HCL IR 5 MG TABLET PO PRN (18:53)
[2018-03-09] MEDS ORDERED: ONDANSETRON 4 MG TAB.RAPDIS PO PRN (18:53)
--- NOTE | 2018-03-09 18:55 | Operative Report ---
Operative Report DATE OF SURGERY: 03/09/18 PREOPERATIVE DIAGNOSIS: Left comminuted intertrochanteric hip fracture POSTOPERATIVE DIAGNOSIS: Same OPERATION: Cephalo-medullary nail left intertrochanteric hip fracture SURGEON: DONTAE HOBBS 1ST ADOBE CQ DEVELOPER: PRASHANT JAY - Required for fracture reduction and manipulation. ANESTHESIA: GA COMPLICATIONS: None ESTIMATED BLOOD LOSS: 200cc PROCEDURE: Indication for above procedure: 62-year-old female who sustained a fall onto her left hip just prior to her traveling to [place] to visit with her daughter. Patient was unable to weight-bear and had significant pain. She was then brought to emergency room where x-rays demonstrated intertrochanteric fracture. Orthopedics is consulted we discussed treatment options including operative versus nonoperative intervention. Risks and benefits of the surgical procedure were explained to the patient she verbalized understanding consented for the procedure. Procedure in detail: Patient was seen and evaluated in the preoperative holding area. The LEFT lower extremity was initialized and marked. Patient received 2 g Ancef IV for bacterial prophylaxis. Patient was taken back to the operative room where transferred operative table. Patient was placed under spinal anesthesia. Once adequate anesthetized he was carefully placed onto the hip positioner the nonoperative lower extremity and bilateral upper extremities were carefully padded and the peroneal nerve was padded and on the nonoperative extremity. The operative extremity was placed in a traction along with adduction and internal rotation. A surgical team debriefing was performed ensuring all instrumentation was available, the surgical procedure was discussed with possible concerns reviewed. A timeout was done identifying correct patient, procedure and extremity everyone in attendance agree with this and verbalized no concerns. Reduction maneuver with the use of the hip traction table were done and C-arm fluoroscopy was used to confirm optimal reduction of the intertrochanteric fracture. Once this was confirmed the lower extremity was prepped with chlor prep and draped in a sterile fashion. At this point a small skin incision was made proximal to the greater trochanter. The guidewire was placed onto the tip of the trochanter advanced down to the level of the lesser trochanter. AP and lateral fluoroscopy was used to confirm appropriate placement of the guidewire. The skin incision was then extended and the underlying fascia opened up carefully to the tip of the greater trochanter. The entry reamer was then used and advanced to the level of the lesser trochanter. At this point [place] short gamma nail was opened up and placed onto the aiming arm and advanced down the shaft of the femur. AP and lateral fluoroscopy was then used to confirm appropriate placement of the nail. Then turned my attention to the compression screw fixation in the femoral head. The trochars were advanced to the skin, a skin incision was made, careful dissection down to the fascia to the lateral femoral cortex was then partaken. The guidewire was then used and placed in the center center position with the tip apex distance less than 25 mm. Once this position was obtained the size of the compression screw was measured. AP and lateral fluoroscopy used to confirm appropriate placement of our guide wire. The step reamer was used to drill up through the femoral neck and head. I then carefully advanced the compression screw into position. AP and lateral fluoroscopy was done to confirm appropriate placement of the compression screw this was then locked into position proximally. The compression screw was then disengaged from its mounting device and the guidewire was removed. Lastly proceeded with locking of the nail distally. Using the aiming arm the trochars were advanced to the skin, a skin incision was made. Careful dissection done with a hemostat to the lateral cortex of the femur. I then drilled the near and far cortices. Measured the appropriate sized distal locking screw and secured it into position. At this point AP/lateral and oblique views of the proximal and distal aspect of the nail were taken confirming appropriate placement of the compression screw, distal locking screw and intramedullary nail. Once this was confirmed I proceeded with copious irrigation of the proximal and distal wounds. The deep tissues were closed with 0 Vicryl suture, subcutaneous tissues were closed with 3-0 Monocryl suture. The skin was closed a running 3-0 subcuticular Monocryl suture and reinforced with Dermabond & Steri-Strips. A dressing was placed. Sponge counts, instrument counts and needle counts were correct. Patient was then transferred from the operating room table to the operating room stretcher. The was no intraoperative complications patient tolerated procedure well was stable to PACU. Implants used: Dmitri 11 x 180 mm 125 Short Gamma Nail with a 95 mm compression screw Postoperative plan: Patient will begin physical therapy on postop day #1. Xarelto will be held initially due to patient's low platelet count and high risk of bleeding.
--- NOTE | 2018-03-09 20:22 | RADIOLOGY REPORT (SQ) ---
EXAM DESCRIPTION: NO CHG FLUORO; HIP LEFT AP/LATERAL COMPLETED DATE/TIME: 03/09/2018 8:01 pm REASON FOR STUDY: LEFT HIP NAILING COMPARISON: None. FLUOROSCOPY TIME: 2.4 minutes. 15 images saved to PACS. TECHNIQUE: Intra-operative images acquired during surgical procedure to evaluate progress. NUMBER OF IMAGES: 15 images. LIMITATIONS: None. FINDINGS: Images acquired during fixation of the fracture of the hip with placement of hardware. IMPRESSION: IMAGE(S) OBTAINED DURING PROCEDURE. COMMENT: Quality ID 145: Final reports for procedures using fluoroscopy that document radiation exp osure indices, or exposure time and number of fluorographic images (if radiation exposure indices are not available) Please consult full operative report of the attending physician for description of the procedure. TECHNICAL DOCUMENTATION: JOB ID: [id number] [employer]- All Rights Reserved Reading location - IP/workstation name: [email or web address]
--- NOTE | 2018-03-09 20:22 | RADIOLOGY REPORT (SQ) ---
EXAM DESCRIPTION: NO CHG FLUORO; HIP LEFT AP/LATERAL COMPLETED DATE/TIME: 03/09/2018 8:01 pm REASON FOR STUDY: LEFT HIP NAILING COMPARISON: None. FLUOROSCOPY TIME: 2.4 minutes. 15 images saved to PACS. TECHNIQUE: Intra-operative images acquired during surgical procedure to evaluate progress. NUMBER OF IMAGES: 15 images. LIMITATIONS: None. FINDINGS: Images acquired during fixation of the fracture of the hip with placement of hardware. IMPRESSION: IMAGE(S) OBTAINED DURING PROCEDURE. COMMENT: Quality ID 145: Final reports for procedures using fluoroscopy that document radiation exp osure indices, or exposure time and number of fluorographic images (if radiation exposure indices are not available) Please consult full operative report of the attending physician for description of the procedure. TECHNICAL DOCUMENTATION: JOB ID: [id number] [employer]- All Rights Reserved Reading location - IP/workstation name: [email or web address]
[2018-03-09] MEDS: OXYCODONE HCL SR 10 MG TABLET PO SCH (21:50)
[2018-03-09] MEDS: CITALOPRAM HYDROBROMIDE 20 MG TABLET PO SCH (22:00)
[2018-03-09] MEDS ORDERED: RIVAROXABAN 10 MG TABLET PO SCH (22:00)
[2018-03-09] MEDS: TOPIRAMATE 100 MG TABLET PO SCH (22:00)
[2018-03-10] MEDS ORDERED: ACETAMINOPHEN 100 ML IV ONE (00:53)
[2018-03-10 04:50] LABS: HEMATOCRIT 28.6 % (36.0-47.0); MEAN CORPUSCULAR HEMOGLOBIN 32.9 pg (27.0-33.4); MEAN CORPUSCULAR HGB CONC 34.5 g/dL (32.0-36.0); MEAN CORPUSCULAR VOLUME 95 fl (80-97); RED CELL DISTRIBUTION WIDTH 12.6 % (11.5-14.0); WHITE BLOOD COUNT 8.1 10^3/uL (4.0-10.5)
[2018-03-10 05:09] LABS: HEMOGLOBIN 9.9 g/dL (12.0-15.5)
[2018-03-10 05:10] LABS: ALANINE AMINOTRANSFERASE 36 U/L (9-52); ALBUMIN 2.7 g/dL (3.5-5.0); ALKALINE PHOSPHATASE 40 U/L (38-126); ANION GAP 6 (5-19); ASPARTATE AMINO TRANSFERASE 39 U/L (14-36); BILIRUBIN,DIRECT 0.3 mg/dL (0.0-0.4); BILIRUBIN,TOTAL 1.4 mg/dL (0.2-1.3); BLOOD UREA NITROGEN 14 mg/dL (7-20); CARBON DIOXIDE 26 mmol/L (22-30); CHLORIDE 109 mmol/L (98-107); GLUCOSE 120 mg/dL (75-110); POTASSIUM 3.6 mmol/L (3.6-5.0); SODIUM 141.1 mmol/L (137-145)
[2018-03-10 05:13] LABS: PLATELET COUNT 71 10^3/uL (150-450)
[2018-03-10] MEDS: LANSOPRAZOLE 30 MG TAB.RAP.DR PO SCH (06:33)
[2018-03-10] MEDS ORDERED: VANCOMYCIN HCL 1,000 MG in DEXTROSE 5%-WATER 250 ML IV ONE (06:50)
[2018-03-10] MEDS ORDERED: VANCOMYCIN HCL 1,000 MG in NORMAL SALINE 250 ML IV ONE (06:50)
--- NOTE | 2018-03-10 10:15 | RADIOLOGY REPORT (SQ) ---
EXAM DESCRIPTION: CT HEAD WITHOUT COMPLETED DATE/TIME: 03/10/2018 9:11 am REASON FOR STUDY: persistant lethargy COMPARISON: None. TECHNIQUE: Axial images acquired through the brain without intravenous contrast. Images reviewed wi th bone, brain and subdural windows. Images stored on PACS. All CT scanners at this facility use dose modulation, iterative reconstruction, and/or weight based d osing when appropriate to reduce radiation dose to as low as reasonably achievable (ALARA). [facility]: Dose Right [facility]: CareDose [facility]: Dose Right [facility]: Teradose 4D [facility]: Smart Lee Silber RADIATION DOSE: CT Rad equipment meets quality standard of care and radiation dose reduction techniq ues were employed. CTDIvol: 48.6 mGy. DLP: 905 mGy-cm. mGy. LIMITATIONS: None. FINDINGS: VENTRICLES: Normal size and contour. CEREBRUM: No masses. No hemorrhage. No midline shift. No evidence for acute infarction. Normal gra y/white matter differentiation. No areas of low density in the white matter. CEREBELLUM: No masses. No hemorrhage. No alteration of density. No evidence for acute infarction. EXTRAAXIAL SPACES: No fluid collections. No masses. ORBITS AND GLOBE: No intra- or extraconal masses. Normal contour of globe without masses. CALVARIUM: No fracture. PARANASAL SINUSES: Frontal ethmoid and sphenoid sinusitis. SOFT TISSUES: No mass or hematoma. OTHER: No other significant finding. IMPRESSION: No acute intracranial changes. Frontal ethmoid and sphenoid sinusitis EVIDENCE OF ACUTE STROKE: No COMMENT: Quality ID # [id number]: Final reports with documentation of one or more dose reduction techniques (e.g., Automated exposure control, adjustment of the mA and/or kV according to patient size, use of iterative reconstruction technique) TECHNICAL DOCUMENTATION: JOB ID: [id number] [employer]- All Rights Reserved Reading location - IP/workstation name: [email or web address]
[2018-03-10] MEDS: BUPROPION HCL 75 MG TABLET PO SCH ×2 (12:01→21:49)
[2018-03-10] MEDS: PREGABALIN 75 MG CAPSULE PO SCH ×2 (12:06→17:06)
[2018-03-10] MEDS: OXYCODONE HCL SR 10 MG TABLET PO SCH (12:06)
--- NOTE | 2018-03-10 13:32 | PDOC PROGRESS REPORT ---
Subjective Progress Note for:: 03/10/18 Subjective:: 62-year-old white female one day status post IM nail placement for left femur fracture. Patient reports she was comfortable overnight and then analgesic medication is helping to relieve her pain. She notes she made very little progress with therapy however she was encouraged to continue working. Patient daughter is also present this afternoon. Patient's daughter is very concerned about her mother's estate and discharge disposition. She prefers her mother to be discharged to a rehab facility in [place]. The daughter was reassured that as long as insurance authorization is obtained this plan is acceptable. Reason For Visit: LEFT HIP FRACTURE,ALCOHOL INTOXICATION Physical Exam Vital Signs: Temp Pulse Resp BP Pulse Ox 37.1 C 88 16 102/55 L 94 03/10/18 11:00 03/10/18 11:00 03/10/18 11:00 03/10/18 11:00 03/10/18 11:00 Intake & Output 03/09/18 03/10/18 03/11/18 06:59 06:59 06:59 Intake Total 1737 3600 Output Total 300 775 Balance 1437 2825 Weight 65.3 kg 65.3 kg General appearance: PRESENT: no acute distress, well-developed, well-nourished Head exam: PRESENT: atraumatic, normocephalic Eye exam: PRESENT: EOMI Respiratory exam: PRESENT: unlabored Pulses: PRESENT: normal dorsalis pedis pul, +2 pedal pulses bilateral Vascular exam: PRESENT: normal capillary refill Gentrourinary exam: PRESENT: other Additional comments: Urinary catheter in place Extremities exam: PRESENT: joint swelling, tenderness Additional comments: Patient sitting upright in hospital bed with bilateral lower extremities in full extension. OpSite dressings on left lower extremity are clean dry and intact. These are left in place. She is minimally tender to palpation over incision sites. She has minimal pedal edema however edema present near incision site. No erythema ecchymosis or purulent drainage noted. Very minimal range of motion exhibited on exam due to pain on initiation of motion. No sensory or motor deficits noted however. Leg lengths equal distal neurovascular exam intact. Musculoskeletal exam: PRESENT: ambulatory Additional comments: Patient makes slow progress with physical therapy as she has not yet ambulated postoperatively. She was able to stand and bear weight on left lower extremity postoperatively. She was encouraged to continue to work with PT to improve strength range of motion and work towards ambulation on left lower extremity. It is likely once she can ambulate from bed to bedside commode her urinary catheter will be removed. Additionally when she can ambulate from bed to chair at the bedside and bedside commode she will likely be discharged. Neurological exam: PRESENT: alert, awake, oriented to person, oriented to place , oriented to time, oriented to situation, CN II-XII grossly intact. ABSENT: motor sensory deficit Psychiatric exam: PRESENT: appropriate affect, normal mood. ABSENT: homicidal ideation, suicidal ideation Skin exam: PRESENT: dry, intact, warm. ABSENT: cyanosis, rash Results Laboratory Results: 03/10/18 04:06 03/10/18 04:06 03/09/18 03/10/18 03/10/18 14:15 04:06 04:06 WBC 8.1 RBC 3.00 L Hgb 9.9 L D Hct 28.6 L MCV 95 MCH 32.9 MCHC 34.5 RDW 12.6 Plt Count 71 L Carbonic Acid 1.16 HCO3/H2CO3 Ratio 20:1 ABG pH 7.42 ABG pCO2 38.5 ABG pO2 87.1 ABG HCO3 24.2 ABG O2 Saturation 96.8 ABG Base Excess -0.1 FiO2 ROOM AIR Sodium 141.1 Potassium 3.6 Chloride 109 H Carbon Dioxide 26 Anion Gap 6 BUN 14 Creatinine 0.57 Est GFR ( Amer) > 60 Est GFR (Non-Af Amer) > 60 Glucose 120 H Calcium 8.0 L Magnesium 1.5 L Total Bilirubin 1.4 H AST 39 H ALT 36 Alkaline Phosphatase 40 Total Protein 5.0 L Albumin 2.7 L Impressions: Pelvis X-Ray 03/08/18 07:16 IMPRESSION: Acute left proximal femoral intertrochanteric fracture. Femur X-Ray 03/08/18 07:17 IMPRESSION: Acute left proximal femoral intertrochanteric fracture with moderate varus angulation Fluoroscopy 03/09/18 00:00 IMPRESSION: IMAGE(S) OBTAINED DURING PROCEDURE. Hip X-Ray 03/09/18 00:00 IMPRESSION: IMAGE(S) OBTAINED DURING PROCEDURE. Head CT 03/10/18 00:00 IMPRESSION: No acute intracranial changes. Frontal ethmoid and sphenoid sinusitis EVIDENCE OF ACUTE STROKE: No Assessment & Plan - Diagnosis (1) Fracture, intertrochanteric, left femur Qualifiers: Fracture type: closed Fracture healing: with routine healing Is this a current diagnosis for this admission?: Yes Plan: 62-year-old white female one day status post IM nail placement for left intertrochanteric femur fracture. Postoperative dressings are clean dry and intact. These are left in place. She has made slow progress with physical therapy and has not yet ambulated postoperatively. She was informed of the importance of continuing to work with PT to improve strength range of motion of left lower extremity. She voiced understanding and is in agreement. Patient's daughter was present on exam today and is hopeful the patient will be discharged to a rehab facility in [place]. [place] is where the daughter lives and she would like to keep a close eye on her mother. Pending insurance approval, I am in agreement with this plan at this time. Meanwhile throughout her stay in the hospital we will continue: 1. DVT prophylaxis 2. Physical therapy 3. Pain control: With assistance of hospitalist service, will likely remove sustained-release narcotics 4. Placement of urinary catheter: To be removed when patient can safely use bedside commode and/or ambulate to the restroom
--- NOTE | 2018-03-10 19:02 | PDOC PROGRESS REPORT ---
Subjective Progress Note for:: 03/10/18 Subjective:: The patient is an unfortunate 62-year-old female who was brought [place] the emergency room [place]. She had a left intertrochanteric femur fracture. She was intoxicated as well. Initially she was in severe pain. She was requiring multiple doses of IV narcotics. She was placed on a rather high dose fentanyl patch to control her pain. Yesterday the patient was quite obtunded requiring multiple doses of Narcan. She did go to the operating room last night under local anesthesia for repair of her fracture. Today she is still somewhat sleepy but her mental status is improving. Her daughter is at the bedside. The patient states that she was going to [place] for the of her granddaughter. She does not drink on a regular basis but has 3 or 4 drinks over the course of a week. Her daughter confirms this. She states that she drank more than she usually does that she was going to be flying and she was nervous. Today the patient has a tremor. 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 This is nothing new. She does not feel acutely agitated but she is somewhat tearful and depressed that she is missed the of her granddaughter. Otherwise she denies fever or chills. No chest pain, shortness of breath or cough. No nausea vomiting or diarrhea. No abdominal pain. She remains with a Marshall catheter in place. She was able to stand up and work with physical therapy today. Reason For Visit: LEFT HIP FRACTURE,ALCOHOL INTOXICATION Physical Exam Vital Signs: Temp Pulse Resp BP Pulse Ox 99.5 F 87 12 98/68 L 91 L 03/10/18 16:07 03/10/18 16:07 03/10/18 16:07 03/10/18 16:07 03/10/18 16:07 Intake & Output 03/09/18 03/10/18 03/11/18 06:59 06:59 06:59 Intake Total 1737 3600 360 Output Total 300 775 650 Balance 1437 2825 -290 Weight 65.3 kg 65.3 kg General appearance: PRESENT: no acute distress, disheveled, thin Mouth exam: PRESENT: moist, tongue midline Respiratory exam: PRESENT: clear to auscultation mariana. ABSENT: rales, rhonchi, wheezes Cardiovascular exam: PRESENT: RRR. ABSENT: diastolic murmur, rubs, systolic murmur GI/Abdominal exam: PRESENT: normal bowel sounds, soft. ABSENT: distended, guarding, mass, organolmegaly, rebound, tenderness Rectal exam: PRESENT: deferred Extremities exam: PRESENT: tenderness - Tenderness across the left hip. Postoperative bandage in place.. ABSENT: calf tenderness, clubbing, pedal edema Neurological exam: PRESENT: alert, awake, oriented to person, oriented to place , oriented to time, oriented to situation, CN II-XII grossly intact, other - She still is somewhat sluggish and sleepy from yesterday.. ABSENT: motor sensory deficit Psychiatric exam: PRESENT: appropriate affect, depressed, other - She is somewhat tearful at times. ABSENT: homicidal ideation, suicidal ideation Skin exam: PRESENT: dry, intact, warm. ABSENT: cyanosis, rash Results Laboratory Results: 03/10/18 04:06 03/10/18 04:06 03/10/18 03/10/18 04:06 04:06 WBC 8.1 RBC 3.00 L Hgb 9.9 L D Hct 28.6 L MCV 95 MCH 32.9 MCHC 34.5 RDW 12.6 Plt Count 71 L Sodium 141.1 Potassium 3.6 Chloride 109 H Carbon Dioxide 26 Anion Gap 6 BUN 14 Creatinine 0.57 Est GFR ( Amer) > 60 Est GFR (Non-Af Amer) > 60 Glucose 120 H Calcium 8.0 L Magnesium 1.5 L Total Bilirubin 1.4 H AST 39 H ALT 36 Alkaline Phosphatase 40 Total Protein 5.0 L Albumin 2.7 L Impressions: Pelvis X-Ray 03/08/18 07:16 IMPRESSION: Acute left proximal femoral intertrochanteric fracture. Femur X-Ray 03/08/18 07:17 IMPRESSION: Acute left proximal femoral intertrochanteric fracture with moderate varus angulation Fluoroscopy 03/09/18 00:00 IMPRESSION: IMAGE(S) OBTAINED DURING PROCEDURE. Hip X-Ray 03/09/18 00:00 IMPRESSION: IMAGE(S) OBTAINED DURING PROCEDURE. Head CT 03/10/18 00:00 IMPRESSION: No acute intracranial changes. Frontal ethmoid and sphenoid sinusitis EVIDENCE OF ACUTE STROKE: No Assessment & Plan - Diagnosis (1) Fracture, intertrochanteric, left femur Qualifiers: Fracture type: closed Fracture healing: with routine healing Is this a current diagnosis for this admission?: Yes Plan: She is postoperative day #1. She seems to be doing well postoperatively. (2) Adverse drug reaction Is this a current diagnosis for this admission?: Yes Plan: The patient had been placed on a 100 mcg fentanyl patch. She was narcotic na ve prior to this hospitalization. She does have a history of drug use when she was a teenager but has not been on any narcotics in her adult life. Her fentanyl patch has been stopped. We will use short acting narcotics going forward. She has been comfortable today. She is required 4 doses of Narcan yesterday (3) Alcohol abuse Is this a current diagnosis for this admission?: Yes Plan: The patient was intoxicated when she had her fall. Apparently she does not have a history of heavy alcohol use. She just drank more than she usually does. She had been up for the past 2 days without sleeping preparing for her trip. She also takes Valium which she mixed with the alcohol. (4) Elevated liver function tests Is this a current diagnosis for this admission?: Yes Plan: Possibly due to her alcohol use. This is quite mild. (5) Hypertension Is this a current diagnosis for this admission?: Yes Plan: Currently on no medication. She was quite hypotensive yesterday requiring fluid bolus. Blood pressure is still on the low side (6) Hypernatremia Is this a current diagnosis for this admission?: Yes Plan: Resolved (7) Acute pain due to injury Is this a current diagnosis for this admission?: Yes Plan: According to the patient's daughter she is exquisitely sensitive to narcotics. I would recommend only short acting narcotics going forward for pain control. She has no complaints of pain at the time of my visit. (8) Thrombocytopenia Is this a current diagnosis for this admission?: Yes Plan: Of undetermined significance at this point. Her level continues to worsen. She will have a CBC drawn in the morning. (9) Full code status Is this a current diagnosis for this admission?: Yes - Time Time Spent with patient: 35 or more minutes - Inpatient Certification Medical Necessity: Other - Inpatient hospitalization remains necessary. The patient ultimately will probably require rehabilitation. Unfortunately I do not believe her insurance is going to cover this. The discharge planners are working on it she is only postoperative day #1 at this point. She is still groggy from the narcotic she was given yesterday. She needs close monitoring here in the hospital.
[2018-03-10] MEDS: CITALOPRAM HYDROBROMIDE 20 MG TABLET PO SCH (22:02)
[2018-03-10] MEDS: TOPIRAMATE 100 MG TABLET PO SCH (22:02)
[2018-03-11] MEDS: RINGERS SOLUTION,LACTATED 1,000 ML IV PRN ×3 (02:46→18:24)
[2018-03-11] MEDS: LANSOPRAZOLE 30 MG TAB.RAP.DR PO SCH (05:11)
[2018-03-11 06:46] LABS: HEMATOCRIT 24.8 % (36.0-47.0); HEMOGLOBIN 8.8 g/dL (12.0-15.5); MEAN CORPUSCULAR HEMOGLOBIN 33.4 pg (27.0-33.4); MEAN CORPUSCULAR HGB CONC 35.4 g/dL (32.0-36.0); MEAN CORPUSCULAR VOLUME 95 fl (80-97); RED BLOOD COUNT 2.62 10^6/uL (3.72-5.28); RED CELL DISTRIBUTION WIDTH 12.5 % (11.5-14.0); WHITE BLOOD COUNT 8.1 10^3/uL (4.0-10.5)
[2018-03-11 07:43] LABS: PLATELET COUNT 73 10^3/uL (150-450)
[2018-03-11] MEDS: PREGABALIN 75 MG CAPSULE PO SCH ×2 (09:45→18:37)
[2018-03-11] MEDS: BUPROPION HCL 75 MG TABLET PO SCH ×2 (09:46→21:18)
[2018-03-11] MEDS ORDERED: FENTANYL 100 MCG/HR PATCH.TD72 TD SCH (10:00)
--- NOTE | 2018-03-11 20:09 | PDOC PROGRESS REPORT ---
Subjective Progress Note for:: 03/11/18 Subjective:: Patient is somewhat sleepy but arousable. Reason For Visit: LEFT HIP FRACTURE,ALCOHOL INTOXICATION Physical Exam Vital Signs: Temp Pulse Resp BP Pulse Ox 99.3 F 91 22 H 111/52 L 96 03/11/18 15:33 03/11/18 19:00 03/11/18 15:33 03/11/18 15:33 03/11/18 15:33 Intake & Output 03/10/18 03/11/18 03/12/18 06:59 06:59 06:59 Intake Total 3600 2010 400 Output Total 775 1450 300 Balance 2825 560 100 Weight 65.3 kg 65.6 kg General appearance: PRESENT: no acute distress, well-developed, well-nourished Head exam: PRESENT: atraumatic, normocephalic Respiratory exam: PRESENT: clear to auscultation mariana. ABSENT: rales, rhonchi, wheezes Cardiovascular exam: PRESENT: RRR. ABSENT: diastolic murmur, rubs, systolic murmur Neurological exam: PRESENT: other - Disoriented Results Laboratory Results: 03/11/18 06:25 03/10/18 04:06 03/11/18 06:25 WBC 8.1 RBC 2.62 L Hgb 8.8 L Hct 24.8 L MCV 95 MCH 33.4 MCHC 35.4 RDW 12.5 Plt Count 73 L Impressions: Pelvis X-Ray 03/08/18 07:16 IMPRESSION: Acute left proximal femoral intertrochanteric fracture. Femur X-Ray 03/08/18 07:17 IMPRESSION: Acute left proximal femoral intertrochanteric fracture with moderate varus angulation Fluoroscopy 03/09/18 00:00 IMPRESSION: IMAGE(S) OBTAINED DURING PROCEDURE. Hip X-Ray 03/09/18 00:00 IMPRESSION: IMAGE(S) OBTAINED DURING PROCEDURE. Head CT 03/10/18 00:00 IMPRESSION: No acute intracranial changes. Frontal ethmoid and sphenoid sinusitis EVIDENCE OF ACUTE STROKE: No Assessment & Plan - Diagnosis (1) Alcohol abuse Is this a current diagnosis for this admission?: Yes Plan: Fortunately patient is not withdrawing. But she is confused she might have some element of acute metabolic encephalopathy. (2) Elevated liver function tests Is this a current diagnosis for this admission?: Yes Plan: May be alcohol-related but it is trending down. (3) Fracture, intertrochanteric, left femur Qualifiers: Fracture type: closed Fracture healing: with routine healing Is this a current diagnosis for this admission?: Yes Plan: Status post ORIF - Time Time Spent with patient: 15-24 minutes
[2018-03-11] MEDS: HEPARIN SOD (PORCINE) 5,000 UNIT/ML 1 ML SYRINGE SUBCUT SCH (21:14)
[2018-03-11] MEDS: CITALOPRAM HYDROBROMIDE 20 MG TABLET PO SCH (21:18)
[2018-03-11] MEDS: TOPIRAMATE 100 MG TABLET PO SCH (21:18)
[2018-03-12] MEDS: RINGERS SOLUTION,LACTATED 1,000 ML IV PRN ×3 (04:42→21:16)
[2018-03-12] MEDS: HEPARIN SOD (PORCINE) 5,000 UNIT/ML 1 ML SYRINGE SUBCUT SCH ×3 (05:50→21:12)
[2018-03-12] MEDS: LANSOPRAZOLE 30 MG TAB.RAP.DR PO SCH (05:51)
[2018-03-12 06:25] LABS: HEMATOCRIT 23.9 % (36.0-47.0); HEMOGLOBIN 8.4 g/dL (12.0-15.5); MEAN CORPUSCULAR HEMOGLOBIN 32.7 pg (27.0-33.4); MEAN CORPUSCULAR VOLUME 94 fl (80-97); RED BLOOD COUNT 2.55 10^6/uL (3.72-5.28); RED CELL DISTRIBUTION WIDTH 12.8 % (11.5-14.0); WHITE BLOOD COUNT 9.2 10^3/uL (4.0-10.5)
[2018-03-12 06:58] LABS: PLATELET COUNT 87 10^3/uL (150-450)
[2018-03-12] MEDS: KETOROLAC TROMETHAMINE INJ/PF 30 MG/1 ML SDV IV PRN ×2 (08:58→21:14)
[2018-03-12] MEDS: BUTALB/ACETAMINOPHEN/CAFFEINE 1 TAB EACH PO PRN (09:36)
[2018-03-12] MEDS: BUPROPION HCL 75 MG TABLET PO SCH ×2 (09:36→21:15)
--- NOTE | 2018-03-12 17:24 | PDOC PROGRESS REPORT ---
Subjective Progress Note for:: 03/12/18 Subjective:: Patient is awake and alert but is confused to time place and person. I have discussed with her daughter about the patient's conditions and the discharge plan. Reason For Visit: LEFT HIP FRACTURE,ALCOHOL INTOXICATION Physical Exam Vital Signs: Temp Pulse Resp BP Pulse Ox 99.4 F 81 20 103/61 91 L 03/12/18 16:03 03/12/18 16:03 03/12/18 16:03 03/12/18 16:03 03/12/18 16:03 Intake & Output 03/11/18 03/12/18 03/13/18 06:59 06:59 06:59 Intake Total 2009 4500 667 Output Total 1450 1100 690 Balance 560 3400 -23 Weight 65.6 kg 65.6 kg General appearance: PRESENT: no acute distress, well-developed, well-nourished Head exam: PRESENT: atraumatic, normocephalic Respiratory exam: PRESENT: clear to auscultation mariana. ABSENT: rales, rhonchi, wheezes Cardiovascular exam: PRESENT: RRR. ABSENT: diastolic murmur, rubs, systolic murmur Neurological exam: PRESENT: alert, altered - No lateralizing signs or focal neurologic deficit., awake Results Laboratory Results: 03/12/18 06:06 03/10/18 04:06 03/12/18 06:06 WBC 9.2 RBC 2.55 L Hgb 8.4 L Hct 23.9 L MCV 94 MCH 32.7 MCHC 35.0 RDW 12.8 Plt Count 87 L Impressions: Pelvis X-Ray 03/08/18 07:16 IMPRESSION: Acute left proximal femoral intertrochanteric fracture. Femur X-Ray 03/08/18 07:17 IMPRESSION: Acute left proximal femoral intertrochanteric fracture with moderate varus angulation Fluoroscopy 03/09/18 00:00 IMPRESSION: IMAGE(S) OBTAINED DURING PROCEDURE. Hip X-Ray 03/09/18 00:00 IMPRESSION: IMAGE(S) OBTAINED DURING PROCEDURE. Head CT 03/10/18 00:00 IMPRESSION: No acute intracranial changes. Frontal ethmoid and sphenoid sinusitis EVIDENCE OF ACUTE STROKE: No Assessment & Plan - Diagnosis (1) Alcohol abuse Is this a current diagnosis for this admission?: Yes Plan: No signs of alcohol withdrawal so far. (2) Elevated liver function tests Is this a current diagnosis for this admission?: Yes Plan: May be alcohol-related but it is trending down. (3) Fracture, intertrochanteric, left femur Qualifiers: Fracture type: closed Fracture healing: with routine healing Is this a current diagnosis for this admission?: Yes Plan: Status post ORIF patient needs rehab placement. - Time Time Spent with patient: 25-34 minutes - Inpatient Certification Medical Necessity: Need Close Monitoring Due to Risk of Patient Decompensation
--- NOTE | 2018-03-12 17:49 | PDOC PROGRESS REPORT ---
Subjective Progress Note for:: 03/12/18 Subjective:: Patient lying in bed comfortably. No issues overnight. States pain has improved. Was able to have a bowel movement today. Has undergone rehabilitation at bedside. Reason For Visit: LEFT HIP FRACTURE,ALCOHOL INTOXICATION Physical Exam Vital Signs: Temp Pulse Resp BP Pulse Ox 99.4 F 81 20 103/61 91 L 03/12/18 16:03 03/12/18 16:03 03/12/18 16:03 03/12/18 16:03 03/12/18 16:03 Intake & Output 03/11/18 03/12/18 03/13/18 06:59 06:59 06:59 Intake Total 2009 4500 667 Output Total 1450 1100 690 Balance 560 3400 -23 Weight 65.6 kg 65.6 kg Extremities exam: PRESENT: other - Left hip: Dressing clean/dry/intact. No erythema or drainage. No evidence of limb length inequality or malrotation. No crepitus with range of motion. No calf tenderness. Results Laboratory Results: 03/12/18 06:06 03/10/18 04:06 03/12/18 06:06 WBC 9.2 RBC 2.55 L Hgb 8.4 L Hct 23.9 L MCV 94 MCH 32.7 MCHC 35.0 RDW 12.8 Plt Count 87 L Impressions: Pelvis X-Ray 03/08/18 07:16 IMPRESSION: Acute left proximal femoral intertrochanteric fracture. Femur X-Ray 03/08/18 07:17 IMPRESSION: Acute left proximal femoral intertrochanteric fracture with moderate varus angulation Fluoroscopy 03/09/18 00:00 IMPRESSION: IMAGE(S) OBTAINED DURING PROCEDURE. Hip X-Ray 03/09/18 00:00 IMPRESSION: IMAGE(S) OBTAINED DURING PROCEDURE. Head CT 03/10/18 00:00 IMPRESSION: No acute intracranial changes. Frontal ethmoid and sphenoid sinusitis EVIDENCE OF ACUTE STROKE: No Assessment & Plan - Diagnosis (1) Intertrochanteric fracture of femur Qualifiers: Encounter type: initial encounter Fracture type: closed Fracture alignment: displaced Laterality: left Qualified Code(s): S72.142A - Displaced intertrochanteric fracture of left femur, initial encounter for closed fracture Is this a current diagnosis for this admission?: Yes Plan: Status post IM nail left intertrochanteric fracture #1 physical therapy weightbearing as tolerated #2 Xarelto for DVT prophylaxis #3 pain control #4 discharge planning to correction facility when bed available.
[2018-03-12] MEDS: CITALOPRAM HYDROBROMIDE 20 MG TABLET PO SCH (21:15)
[2018-03-12] MEDS: TOPIRAMATE 100 MG TABLET PO SCH (21:15)
[2018-03-13] MEDS: HEPARIN SOD (PORCINE) 5,000 UNIT/ML 1 ML SYRINGE SUBCUT SCH ×3 (05:20→21:57)
[2018-03-13] MEDS: LANSOPRAZOLE 30 MG TAB.RAP.DR PO SCH (05:21)
[2018-03-13] MEDS: RINGERS SOLUTION,LACTATED 1,000 ML IV PRN (05:23)
[2018-03-13] MEDS: BUPROPION HCL 75 MG TABLET PO SCH ×2 (09:54→21:56)
[2018-03-13] MEDS: ONDANSETRON HCL INJ/PF 4 MG/2 ML SDV IV PRN (09:54)
--- NOTE | 2018-03-13 11:03 | RADIOLOGY REPORT (SQ) ---
EXAM DESCRIPTION: CHEST 2 VIEWS COMPLETED DATE/TIME: 03/13/2018 10:45 am REASON FOR STUDY: dyspnea COMPARISON: None. EXAM PARAMETERS: NUMBER OF VIEWS: two views TECHNIQUE: Digital Frontal and Lateral radiographic views of the chest acquired. RADIATION DOSE: NA LIMITATIONS: Patient positioning FINDINGS: LUNGS AND PLEURA: Diffuse patchy airspace consolidation with suggestion of increased inter stitial lung markings as well. No definite pleural effusion MEDIASTINUM AND HILAR STRUCTURES: The hilar areas are obscured secondary to overlying airspace opacif ications. HEART AND VASCULAR STRUCTURES: There is suggestion of cardiomegaly, however rotation limits evaluatio n of the heart. BONES: No acute findings. HARDWARE: None in the chest. OTHER: No other significant finding. IMPRESSION: Diffuse airspace opacities as well as increased interstitial lung markings. This may re present a pneumonia, however, pulmonary edema/ congestive heart failure may have a similar appearance . Clinical correlation recommended. TECHNICAL DOCUMENTATION: JOB ID: [id number] [employer]- All Rights Reserved Reading location - IP/workstation name: [email or web address]
--- NOTE | 2018-03-13 12:13 | PDOC PROGRESS REPORT ---
Subjective Progress Note for:: 03/13/18 Subjective:: Patient is awake and alert. She is less confused. She is a bit tachycardic and tachypneic. I requested CBC, BMP and chest x-ray. Also I have a conversation with his daughter who requests that her mother gets her acute rehab placement in [place]. On Thursday discharge plan if we will discuss further the other options available Reason For Visit: LEFT HIP FRACTURE,ALCOHOL INTOXICATION Physical Exam Vital Signs: Temp Pulse Resp BP Pulse Ox 98.7 F 81 21 H 108/64 95 03/13/18 04:00 03/13/18 07:00 03/13/18 04:00 03/13/18 04:00 03/13/18 04:00 Intake & Output 03/12/18 03/13/18 03/14/18 06:59 06:59 06:59 Intake Total 4500 4757 Output Total 1100 1640 Balance 3400 3117 Weight 65.6 kg 67.8 kg General appearance: PRESENT: no acute distress, well-developed, well-nourished Respiratory exam: PRESENT: tachypnea Cardiovascular exam: PRESENT: diastolic murmur - Grade 3/6. I requested echo to evaluate the status of her heart. Results Laboratory Results: 03/12/18 06:06 03/10/18 04:06 Impressions: Pelvis X-Ray 03/08/18 07:16 IMPRESSION: Acute left proximal femoral intertrochanteric fracture. Femur X-Ray 03/08/18 07:17 IMPRESSION: Acute left proximal femoral intertrochanteric fracture with moderate varus angulation Fluoroscopy 03/09/18 00:00 IMPRESSION: IMAGE(S) OBTAINED DURING PROCEDURE. Hip X-Ray 03/09/18 00:00 IMPRESSION: IMAGE(S) OBTAINED DURING PROCEDURE. Head CT 03/10/18 00:00 IMPRESSION: No acute intracranial changes. Frontal ethmoid and sphenoid sinusitis EVIDENCE OF ACUTE STROKE: No Chest X-Ray 03/13/18 00:00 IMPRESSION: Diffuse airspace opacities as well as increased interstitial lung markings. This may represent a pneumonia, however, pulmonary edema/ congestive heart failure may have a similar appearance. Clinical correlation recommended. Assessment & Plan - Diagnosis (1) Alcohol abuse Is this a current diagnosis for this admission?: Yes Plan: No signs of alcohol withdrawal so far. (2) Elevated liver function tests Is this a current diagnosis for this admission?: Yes Plan: May be alcohol-related but it is trending down. (3) Fracture, intertrochanteric, left femur Qualifiers: Fracture type: closed Fracture healing: with routine healing Is this a current diagnosis for this admission?: Yes Plan: Status post ORIF patient needs rehab placement. - Time Time Spent with patient: 25-34 minutes
--- NOTE | 2018-03-13 15:02 | PDOC PROGRESS REPORT ---
Subjective Progress Note for:: 03/13/18 Subjective:: Discussed concerns with daughter at bedside Patient lying in bed comfortably. No issues overnight. States pain has improved. Has undergone rehabilitation at bedside. Reason For Visit: LEFT HIP FRACTURE,ALCOHOL INTOXICATION Physical Exam Vital Signs: Temp Pulse Resp BP Pulse Ox 98.3 F 87 16 106/58 L 96 03/13/18 11:18 03/13/18 14:00 03/13/18 11:18 03/13/18 11:18 03/13/18 13:47 Intake & Output 03/12/18 03/13/18 03/14/18 06:59 06:59 06:59 Intake Total 4500 4757 570 Output Total 1100 1640 700 Balance 3400 3117 -130 Weight 65.6 kg 67.8 kg Musculoskeletal exam: PRESENT: other - Left hip: Surgical incision well approximated no erythema or drainage. Ecchymosis along the surgical site and proximal femur noted. No evidence of limb length inequality. No crepitus with hip range of motion up to 90 of hip flexion. Intact plantar flexion/ dorsiflexion. No calf tenderness. Results Laboratory Results: 03/12/18 06:06 03/10/18 04:06 Impressions: Pelvis X-Ray 03/08/18 07:16 IMPRESSION: Acute left proximal femoral intertrochanteric fracture. Femur X-Ray 03/08/18 07:17 IMPRESSION: Acute left proximal femoral intertrochanteric fracture with moderate varus angulation Fluoroscopy 03/09/18 00:00 IMPRESSION: IMAGE(S) OBTAINED DURING PROCEDURE. Hip X-Ray 03/09/18 00:00 IMPRESSION: IMAGE(S) OBTAINED DURING PROCEDURE. Head CT 03/10/18 00:00 IMPRESSION: No acute intracranial changes. Frontal ethmoid and sphenoid sinusitis EVIDENCE OF ACUTE STROKE: No Chest X-Ray 03/13/18 00:00 IMPRESSION: Diffuse airspace opacities as well as increased interstitial lung markings. This may represent a pneumonia, however, pulmonary edema/ congestive heart failure may have a similar appearance. Clinical correlation recommended. Assessment & Plan - Diagnosis (1) Intertrochanteric fracture of femur Qualifiers: Encounter type: initial encounter Fracture type: closed Fracture alignment: displaced Laterality: left Qualified Code(s): S72.142A - Displaced intertrochanteric fracture of left femur, initial encounter for closed fracture Is this a current diagnosis for this admission?: Yes Plan: Status post IM nail left intertrochanteric fracture #1 physical therapy weightbearing as tolerated #2 Xarelto for DVT prophylaxis #3 pain control #4 discharge planning to assisted facility when bed available.
[2018-03-13] MEDS: TRAMADOL HCL 50 MG TABLET PO PRN (15:13)
[2018-03-13] MEDS ORDERED: VANCOMYCIN HCL 0 MG in DEXTROSE 5%-WATER 250 ML IV NR (17:30)
[2018-03-13] MEDS ORDERED: FUROSEMIDE INJ/PF 100 MG/10 ML SDV ONE (17:31)
[2018-03-13 17:52] LABS: ARTERIAL BLOOD BASE EXCESS -1.3 mmol/L; ARTERIAL BLOOD H2CO3 1.02 mmol/L (1.05-1.35); ARTERIAL BLOOD HCO3 22.1 mmol/L (20-26); ARTERIAL BLOOD PCO2 33.8 mmHg (35-45); ARTERIAL BLOOD PH 7.43 (7.35-7.45); ARTERIAL BLOOD PO2 62.9 mmHg (80-100); ARTERIAL BLOOD TOTAL CO2 23.2 mmol/L (21-25)
[2018-03-13 17:53] LABS: ARTERIAL BLOOD FIO2 32%
[2018-03-13] MEDS ORDERED: CEFEPIME 2 GM/D5W RTU 2 GM/50 ML RTUPB IV SCH (18:00)
[2018-03-13] MEDS ORDERED: FUROSEMIDE INJ/PF 40 MG/4 ML SDV IV ONE (18:00)
[2018-03-13] MEDS: DIAZEPAM 5 MG TABLET PO PRN (18:25)
--- NOTE | 2018-03-13 18:38 | Progress Note ---
Provider Note Provider Note: This is 62 years old female patient admitted for left intratrochanteric fracture. This morning during my examination I find patient is in respiratory distress with tachypnea and tachycardia. Her respiratory distress increased this afternoon and becomes labored breathing. The chest x- ray requested this morning revealed diffuse airspace disease worrisome for pneumonia versus pulmonary edema. Since patient has been on normal saline at a rate of 150 mL/h since admission probably she volume overloaded. Her ABG shows pH of 7.43, PCO2 33 and PO2 of 67. I gaveher Lasix 80 mg IV stat, empirically covered with vancomycin and cefepime, and put on BiPAP and transferred to ICU for close monitoring.
[2018-03-13] MEDS ORDERED: CEFEPIME INJ 2 GM VIAL ONE (19:05)
[2018-03-13] MEDS ORDERED: LORAZEPAM INJ 2 MG/1 ML VIAL IV PRN (19:13)
[2018-03-13] MEDS ORDERED: VANCOMYCIN HCL INJ 1000 MG VIAL IV PRN (19:27)
[2018-03-13] MEDS ORDERED: VANCOMYCIN HCL 1,500 MG in DEXTROSE 5%-WATER 250 ML IV ONE (19:30)
[2018-03-13] MEDS ORDERED: VANCOMYCIN HCL INJ 1000 MG VIAL ONE ×2 (19:35→21:42)
[2018-03-13] MEDS ORDERED: VANCOMYCIN HCL INJ 500 MG VIAL ONE ×2 (19:36→21:42)
[2018-03-13] MEDS ORDERED: BUPROPION HCL 75 MG TABLET ONE (21:41)
[2018-03-13] MEDS: TOPIRAMATE 100 MG TABLET PO SCH (21:55)
[2018-03-13] MEDS: CITALOPRAM HYDROBROMIDE 20 MG TABLET PO SCH (21:55)
[2018-03-14 03:57] LABS: HEMATOCRIT 24.1 % (36.0-47.0); HEMOGLOBIN 8.6 g/dL (12.0-15.5); MEAN CORPUSCULAR HEMOGLOBIN 33.3 pg (27.0-33.4); MEAN CORPUSCULAR HGB CONC 35.7 g/dL (32.0-36.0); MEAN CORPUSCULAR VOLUME 93 fl (80-97); PLATELET COUNT 119 10^3/uL (150-450); RED BLOOD COUNT 2.59 10^6/uL (3.72-5.28); WHITE BLOOD COUNT 10.7 10^3/uL (4.0-10.5)
[2018-03-14 04:20] LABS: ANION GAP 9 (5-19); BLOOD UREA NITROGEN 12 mg/dL (7-20); CALCIUM 7.8 mg/dL (8.4-10.2); CARBON DIOXIDE 26 mmol/L (22-30); CHLORIDE 102 mmol/L (98-107); GLUCOSE 107 mg/dL (75-110); SODIUM 136.9 mmol/L (137-145)
[2018-03-14 04:23] LABS: POTASSIUM 2.7 mmol/L (3.6-5.0)
[2018-03-14] MEDS ORDERED: POTASSIUM CHLORIDE 10 MEQ TABLET.SA PO ONE ×3 (04:42→18:00)
[2018-03-14] MEDS ORDERED: POTASSI CL 20 MEQ/50 ML RIDER 20 MEQ/50 ML RTUPB IV ONE (04:42)
[2018-03-14] MEDS ORDERED: CEFEPIME INJ 2 GM VIAL IV PRN (04:49)
[2018-03-14] MEDS: FUROSEMIDE INJ/PF 40 MG/4 ML SDV IV SCH ×2 (05:03→17:07)
[2018-03-14] MEDS: LANSOPRAZOLE 30 MG TAB.RAP.DR PO SCH (05:04)
[2018-03-14] MEDS: POTASSIUM CHLORIDE 20 MEQ/50 ML RTU IV SCH ×2 (05:04→07:35)
[2018-03-14] MEDS: HEPARIN SOD (PORCINE) 5,000 UNIT/ML 1 ML SYRINGE SUBCUT SCH ×3 (05:04→21:28)
[2018-03-14] MEDS ORDERED: CEFEPIME HCL 2 GM in DEXTROSE 5%-WATER 50 ML IV SCH (06:00)
[2018-03-14] MEDS ORDERED: VANCOMYCIN HCL 1,000 MG in DEXTROSE 5%-WATER 250 ML IV ONE (07:30)
[2018-03-14] MEDS: BUTALB/ACETAMINOPHEN/CAFFEINE 1 TAB EACH PO PRN ×2 (08:08→18:01)
--- NOTE | 2018-03-14 08:41 | PDOC PROGRESS REPORT ---
Subjective Subjective:: Discussed concerns with daughter at bedside Patient lying in bed comfortably. Patient had episode of respiratory distress secondary to fluid overload. Since receiving 80 mg of IV Lasix her breathing has notably improved along with her mentation. Patient states her pain is controlled currently. Reason For Visit: LEFT HIP FRACTURE,ALCOHOL INTOXICATION Physical Exam Vital Signs: Temp Pulse Resp BP Pulse Ox 98.1 F 70 26 H 86/56 L 96 03/14/18 06:00 03/14/18 06:00 03/14/18 06:29 03/14/18 06:29 03/14/18 08:02 Intake & Output 03/13/18 03/14/18 03/15/18 06:59 06:59 06:59 Intake Total 4757 3180 Output Total 4639 6054 Balance 3117 -2870 Weight 67.8 kg 62 kg Musculoskeletal exam: PRESENT: other - Left lower extremity: Swelling and ecchymosis along the proximal femur. No evidence of limb length inequality or deformity. Intact plantar flexion/dorsiflexion. Dorsalis pedis pulse 2+. No calf tenderness. Results Laboratory Results: 03/14/18 03:48 03/14/18 03:48 03/13/18 03/13/18 03/14/18 17:35 17:55 03:48 WBC 10.7 H RBC 2.59 L Hgb 8.6 L Hct 24.1 L MCV 93 MCH 33.3 MCHC 35.7 RDW 13.0 Plt Count 119 L Carbonic Acid 1.02 L HCO3/H2CO3 Ratio 21:1 ABG pH 7.43 ABG pCO2 33.8 L ABG pO2 62.9 L ABG HCO3 22.1 ABG O2 Saturation 93.0 L ABG Base Excess -1.3 FiO2 32% Sodium Potassium Chloride Carbon Dioxide Anion Gap BUN Creatinine Est GFR ( Amer) Est GFR (Non-Af Amer) Glucose Lactic Acid 1.4 Calcium TSH 03/14/18 03/14/18 03:48 03:48 WBC RBC Hgb Hct MCV MCH MCHC RDW Plt Count Carbonic Acid HCO3/H2CO3 Ratio ABG pH ABG pCO2 ABG pO2 ABG HCO3 ABG O2 Saturation ABG Base Excess FiO2 Sodium 136.9 L Potassium 2.7 L* Chloride 102 Carbon Dioxide 26 Anion Gap 9 BUN 12 Creatinine 0.50 L Est GFR ( Amer) > 60 Est GFR (Non-Af Amer) > 60 Glucose 107 Lactic Acid Calcium 7.8 L TSH 1.31 Impressions: Pelvis X-Ray 03/08/18 07:16 IMPRESSION: Acute left proximal femoral intertrochanteric fracture. Femur X-Ray 03/08/18 07:17 IMPRESSION: Acute left proximal femoral intertrochanteric fracture with moderate varus angulation Fluoroscopy 03/09/18 00:00 IMPRESSION: IMAGE(S) OBTAINED DURING PROCEDURE. Hip X-Ray 03/09/18 00:00 IMPRESSION: IMAGE(S) OBTAINED DURING PROCEDURE. Head CT 03/10/18 00:00 IMPRESSION: No acute intracranial changes. Frontal ethmoid and sphenoid sinusitis EVIDENCE OF ACUTE STROKE: No Assessment & Plan - Diagnosis (1) Intertrochanteric fracture of femur Qualifiers: Encounter type: initial encounter Fracture type: closed Fracture alignment: displaced Laterality: left Qualified Code(s): S72.142A - Displaced intertrochanteric fracture of left femur, initial encounter for closed fracture Is this a current diagnosis for this admission?: Yes Plan: Status post IM nail left intertrochanteric fracture Patient had episode of fluid overload secondary to continuous normal saline at 150 mL despite patient is tolerating p.o. according to the ICU nurse and family she has notably improved over the past 12 hours after receiving Lasix and has been downgraded to IMCU. #1 physical therapy weightbearing as tolerated #2 Xarelto for DVT prophylaxis #3 pain control #4 [facility] when medically stable
--- NOTE | 2018-03-14 09:12 | RADIOLOGY REPORT (SQ) ---
EXAM DESCRIPTION: CHEST SINGLE VIEW COMPLETED DATE/TIME: 03/14/2018 8:46 am REASON FOR STUDY: follow up chest x-ray COMPARISON: 03/13/2018 EXAM PARAMETERS: NUMBER OF VIEWS: One view. TECHNIQUE: Single frontal radiographic view of the chest acquired. RADIATION DOSE: NA LIMITATIONS: None. FINDINGS: LUNGS AND PLEURA: Progression of diffuse multifocal airspace disease with consolidation le ft lower lobe. Probable left greater than right pleural effusions. No pneumothorax. MEDIASTINUM AND HILAR STRUCTURES: No masses. Contour normal. HEART AND VASCULAR STRUCTURES: Stable. BONES: No acute findings. HARDWARE: None in the chest. OTHER: No other significant finding. IMPRESSION: INTERVAL PROGRESSION OF MULTIFOCAL AIRSPACE DISEASE WITH CONSOLIDATION LEFT LOWER LOBE A ND POSSIBLE PLEURAL EFFUSIONS. TECHNICAL DOCUMENTATION: JOB ID: [id number] [employer]- All Rights Reserved Reading location - IP/workstation name: [email or web address]
[2018-03-14] MEDS: BUPROPION HCL 75 MG TABLET PO SCH ×2 (11:22→21:28)
[2018-03-14] MEDS ORDERED: VANCOMYCIN HCL 750 MG in DEXTROSE 5%-WATER 250 ML IV SCH (14:00)
--- NOTE | 2018-03-14 15:04 | PDOC PROGRESS REPORT ---
Subjective Progress Note for:: 03/14/18 Subjective:: I seen patient in ICU. She is awake alert. Her shortness of breath has been improving. Currently she is off BiPAP. I reviewed her labs and all abnormalities is that she has potassium of 2.7. Reason For Visit: LEFT HIP FRACTURE,ALCOHOL INTOXICATION Physical Exam Vital Signs: Temp Pulse Resp BP Pulse Ox 98.4 F 76 26 H 134/108 H 94 03/14/18 12:00 03/14/18 08:00 03/14/18 14:29 03/14/18 14:29 03/14/18 14:29 Intake & Output 03/13/18 03/14/18 03/15/18 06:59 06:59 06:59 Intake Total 4757 3180 Output Total 1980 2238 700 Balance 7738 -3880 -700 Weight 67.8 kg 62 kg Results Laboratory Results: 03/14/18 03:48 03/14/18 03:48 03/13/18 03/13/18 03/14/18 17:35 17:55 03:48 WBC 10.7 H RBC 2.59 L Hgb 8.6 L Hct 24.1 L MCV 93 MCH 33.3 MCHC 35.7 RDW 13.0 Plt Count 119 L Carbonic Acid 1.02 L HCO3/H2CO3 Ratio 21:1 ABG pH 7.43 ABG pCO2 33.8 L ABG pO2 62.9 L ABG HCO3 22.1 ABG O2 Saturation 93.0 L ABG Base Excess -1.3 FiO2 32% Sodium Potassium Chloride Carbon Dioxide Anion Gap BUN Creatinine Est GFR ( Amer) Est GFR (Non-Af Amer) Glucose Lactic Acid 1.4 Calcium TSH 03/14/18 03/14/18 03:48 03:48 WBC RBC Hgb Hct MCV MCH MCHC RDW Plt Count Carbonic Acid HCO3/H2CO3 Ratio ABG pH ABG pCO2 ABG pO2 ABG HCO3 ABG O2 Saturation ABG Base Excess FiO2 Sodium 136.9 L Potassium 2.7 L* Chloride 102 Carbon Dioxide 26 Anion Gap 9 BUN 12 Creatinine 0.50 L Est GFR ( Amer) > 60 Est GFR (Non-Af Amer) > 60 Glucose 107 Lactic Acid Calcium 7.8 L TSH 1.31 Impressions: Pelvis X-Ray 03/08/18 07:16 IMPRESSION: Acute left proximal femoral intertrochanteric fracture. Femur X-Ray 03/08/18 07:17 IMPRESSION: Acute left proximal femoral intertrochanteric fracture with moderate varus angulation Fluoroscopy 03/09/18 00:00 IMPRESSION: IMAGE(S) OBTAINED DURING PROCEDURE. Hip X-Ray 03/09/18 00:00 IMPRESSION: IMAGE(S) OBTAINED DURING PROCEDURE. Head CT 03/10/18 00:00 IMPRESSION: No acute intracranial changes. Frontal ethmoid and sphenoid sinusitis EVIDENCE OF ACUTE STROKE: No Chest X-Ray 03/14/18 00:00 IMPRESSION: INTERVAL PROGRESSION OF MULTIFOCAL AIRSPACE DISEASE WITH CONSOLIDATION LEFT LOWER LOBE AND POSSIBLE PLEURAL EFFUSIONS. Assessment & Plan - Diagnosis (1) Alcohol abuse Is this a current diagnosis for this admission?: Yes Plan: No signs of alcohol withdrawal so far. (2) Elevated liver function tests Is this a current diagnosis for this admission?: Yes Plan: May be alcohol-related but it is trending down. (3) Fracture, intertrochanteric, left femur Qualifiers: Fracture type: closed Fracture healing: with routine healing Is this a current diagnosis for this admission?: Yes Plan: Status post ORIF patient needs rehab placement. (4) Acute respiratory failure Is this a current diagnosis for this admission?: Yes Plan: It has been resolving. Most probably it is due to volume overload.
[2018-03-14] MEDS: DIAZEPAM 5 MG TABLET PO PRN (17:20)
[2018-03-14] MEDS: FUROSEMIDE INJ/PF 20 MG/2 ML SDV IV SCH (17:57)
[2018-03-14] MEDS ORDERED: DIAZEPAM 5 MG TABLET PO PRN (19:35)
[2018-03-14] MEDS: CITALOPRAM HYDROBROMIDE 20 MG TABLET PO SCH (21:28)
[2018-03-14] MEDS: TOPIRAMATE 100 MG TABLET PO SCH (21:28)
[2018-03-15] MEDS: BUTALB/ACETAMINOPHEN/CAFFEINE 1 TAB EACH PO PRN ×2 (00:46→06:19)
[2018-03-15] MEDS: FUROSEMIDE INJ/PF 20 MG/2 ML SDV IV SCH ×2 (05:57→18:01)
[2018-03-15 05:58] LABS: ABSOLUTE EOSINOPHILS # (AUTO) 0.1 10^3/uL (0.0-0.6); ABSOLUTE LYMPHOCYTES (AUTO) 1.1 10^3/uL (0.5-4.7); ABSOLUTE MONOCYTES (AUTO) 0.8 10^3/uL (0.1-1.4); ABSOLUTE NEUT (AUTO) 6.5 10^3/uL (1.7-8.2); BASOPHILS % (AUTO) 0.2 % (0-2); EOSINOPHILS % (AUTO) 1.2 % (0-6); HEMOGLOBIN 8.7 g/dL (12.0-15.5); LYMPHOCYTES % (AUTO) 13.2 % (13-45); MEAN CORPUSCULAR HEMOGLOBIN 33.1 pg (27.0-33.4); MEAN CORPUSCULAR HGB CONC 34.9 g/dL (32.0-36.0); MEAN CORPUSCULAR VOLUME 95 fl (80-97); MONOCYTES % (AUTO) 9.3 % (3-13); PLATELET COUNT 133 10^3/uL (150-450); RED BLOOD COUNT 2.63 10^6/uL (3.72-5.28); RED CELL DISTRIBUTION WIDTH 13.1 % (11.5-14.0); SEGMENTED NEUTROPHILS % (AUTO) 76.1 % (42-78); TOTAL CELLS COUNTED % (AUTO) 100 %; WHITE BLOOD COUNT 8.5 10^3/uL (4.0-10.5)
[2018-03-15] MEDS: HEPARIN SOD (PORCINE) 5,000 UNIT/ML 1 ML SYRINGE SUBCUT SCH ×3 (05:58→21:56)
[2018-03-15] MEDS: LANSOPRAZOLE 30 MG TAB.RAP.DR PO SCH (05:58)
[2018-03-15 06:31] LABS: ANION GAP 6 (5-19); BLOOD UREA NITROGEN 11 mg/dL (7-20); CARBON DIOXIDE 30 mmol/L (22-30); CHLORIDE 102 mmol/L (98-107); GLUCOSE 105 mg/dL (75-110); SODIUM 137.9 mmol/L (137-145)
--- NOTE | 2018-03-15 07:08 | RADIOLOGY REPORT (SQ) ---
EXAM DESCRIPTION: CHEST SINGLE VIEW CLINICAL HISTORY: 62 years Female, Dyspnea COMPARISON: 03/15/18. NUMBER OF VIEWS/TECHNIQUE: 1/AP LIMITATIONS: None. FINDINGS: Moderate mixed airspace and interstitial opacities, normal cardiac silhouette, rotation artifact, moderate left basilar opacity-effusion. No pneumothorax. No acute bone defect. IMPRESSION: Worsened moderate bilateral opacities.
[2018-03-15] MEDS ORDERED: POTASSIUM CHLORIDE 10 MEQ TABLET.SA PO ONE (08:15)
[2018-03-15] MEDS: BUPROPION HCL 75 MG TABLET PO SCH (10:40)
[2018-03-15] MEDS: TRAMADOL HCL 50 MG TABLET PO PRN (10:43)
[2018-03-15] MEDS ORDERED: IBUPROFEN 400 MG TABLET PO PRN (15:15)
[2018-03-15] MEDS ORDERED: VANCOMYCIN HCL 0 MG in DEXTROSE 5%-WATER 250 ML IV NR (15:45)
--- NOTE | 2018-03-15 16:04 | PDOC PROGRESS REPORT ---
Subjective Subjective:: This is 62 years old female patient admitted for left intratrochanteric fracture. 3 days ago patient was in respiratory distress with tachypnea and tachycardia. Her respiratory distress increased and became labored breathing. Her chest x-ray revealed diffuse airspace disease worrisome for pneumonia versus pulmonary edema. Since patient was on normal saline at a rate of 150 mL/h since admission probably she volume overloaded. Her ABG shows pH of 7.43, PCO2 33 and PO2 of 67. She was given Lasix 80 mg IV stat, empirically covered with vancomycin and cefepime, and put on BiPAP and transferred to ICU for close monitoring. The next morning her shortness of breath relatively subsided and patient taken off BiPAP and keep her on supplemental oxygen only. Evidence of the patient's clinical stable repeat chest x-ray today reported as worsening bilateral diffuse airspace opacity. The plan is to restart her on vancomycin and cefepime and I will request also CT of the chest without contrast. Reason For Visit: LEFT HIP FRACTURE,ALCOHOL INTOXICATION Physical Exam Vital Signs: Temp Pulse Resp BP Pulse Ox 98.7 F 60 24 H 89/50 L 92 03/15/18 04:00 03/15/18 09:16 03/15/18 12:00 03/15/18 08:47 03/15/18 04:00 Intake & Output 03/14/18 03/15/18 03/16/18 06:59 06:59 06:59 Intake Total 3180 1228 Output Total 6050 5000 750 Balance -5129 -6744 -750 Weight 62 kg 60.8 kg General appearance: PRESENT: no acute distress, well-developed, well-nourished Head exam: PRESENT: atraumatic, normocephalic Respiratory exam: PRESENT: decreased breath sounds - Mildly decreased air entry at the lung bases Cardiovascular exam: PRESENT: RRR. ABSENT: diastolic murmur, rubs, systolic murmur GI/Abdominal exam: PRESENT: normal bowel sounds, soft. ABSENT: distended, guarding, mass, organolmegaly, rebound, tenderness Neurological exam: PRESENT: alert, awake Results Laboratory Results: 03/15/18 05:51 03/15/18 05:51 03/14/18 03/15/18 03/15/18 17:13 05:51 05:51 WBC 8.5 RBC 2.63 L Hgb 8.7 L Hct 25.0 L MCV 95 MCH 33.1 MCHC 34.9 RDW 13.1 Plt Count 133 L Seg Neutrophils % 76.1 Lymphocytes % 13.2 Monocytes % 9.3 Eosinophils % 1.2 Basophils % 0.2 Absolute Neutrophils 6.5 Absolute Lymphocytes 1.1 Absolute Monocytes 0.8 Absolute Eosinophils 0.1 Absolute Basophils 0.0 Sodium 137.9 Potassium 3.0 L* 3.0 L* Chloride 102 Carbon Dioxide 30 Anion Gap 6 BUN 11 Creatinine 0.50 L Est GFR ( Amer) > 60 Est GFR (Non-Af Amer) > 60 Glucose 105 Calcium 8.0 L Magnesium 03/15/18 05:51 WBC RBC Hgb Hct MCV MCH MCHC RDW Plt Count Seg Neutrophils % Lymphocytes % Monocytes % Eosinophils % Basophils % Absolute Neutrophils Absolute Lymphocytes Absolute Monocytes Absolute Eosinophils Absolute Basophils Sodium Potassium Chloride Carbon Dioxide Anion Gap BUN Creatinine Est GFR ( Amer) Est GFR (Non-Af Amer) Glucose Calcium Magnesium 1.8 Impressions: Pelvis X-Ray 03/08/18 07:16 IMPRESSION: Acute left proximal femoral intertrochanteric fracture. Femur X-Ray 03/08/18 07:17 IMPRESSION: Acute left proximal femoral intertrochanteric fracture with moderate varus angulation Fluoroscopy 03/09/18 00:00 IMPRESSION: IMAGE(S) OBTAINED DURING PROCEDURE. Hip X-Ray 03/09/18 00:00 IMPRESSION: IMAGE(S) OBTAINED DURING PROCEDURE. Head CT 03/10/18 00:00 IMPRESSION: No acute intracranial changes. Frontal ethmoid and sphenoid sinusitis EVIDENCE OF ACUTE STROKE: No Chest X-Ray 03/15/18 06:00 IMPRESSION: Worsened moderate bilateral opacities. Assessment & Plan - Diagnosis (1) Alcohol abuse Is this a current diagnosis for this admission?: Yes Plan: No signs of alcohol withdrawal so far. (2) Elevated liver function tests Is this a current diagnosis for this admission?: Yes Plan: May be alcohol-related but it is trending down. (3) Fracture, intertrochanteric, left femur Qualifiers: Fracture type: closed Fracture healing: with routine healing Is this a current diagnosis for this admission?: Yes Plan: Status post ORIF patient needs rehab placement. (4) Acute respiratory failure Is this a current diagnosis for this admission?: Yes Plan: It has been resolving. Most probably it is due to volume overload. But her chest x-ray reported this morning worsening opacity. CT scan of the chest and put the patient on cefepime and vancomycin. And lactic acid in a.m.
[2018-03-15] MEDS ORDERED: CEFEPIME 2 GM/D5W RTU 2 GM/50 ML RTUPB IV SCH (18:00)
--- NOTE | 2018-03-15 18:58 | RADIOLOGY REPORT (SQ) ---
EXAM DESCRIPTION: CT CHEST WITHOUT COMPLETED DATE/TIME: 03/15/2018 6:43 pm REASON FOR STUDY: Dyspnea COMPARISON: Chest x-ray 03/15/2018 TECHNIQUE: CT scan performed of the chest without intravenous contrast. Images reviewed with lung, soft tissue and bone windows. Reconstructed coronal and sagittal MPR images reviewed. All images st ored on PACS. All CT scanners at this facility use dose modulation, iterative reconstruction, and/or weight based d osing when appropriate to reduce radiation dose to as low as reasonably achievable (ALARA). [facility]: Dose Right [facility]: CareDose [facility]: Dose Right [facility]: Teradose 4D [facility]: Smart Punctil RADIATION DOSE: CT Rad equipment meets quality standard of care and radiation dose reduction techniq ues were employed. CTDIvol: 5.2 mGy. DLP: 192 mGy-cm. mGy. LIMITATIONS: No technical limitations. FINDINGS: LUNGS AND PLEURA: There is fairly dense opacification in both upper lobes predominantly. Air bronchograms are present. There is also involvement of the upper segments of the right lower lob e and mild left lower lobe involvement. Small pleural effusions are present. HILAR AND MEDIASTINAL STRUCTURES: No identified masses or abnormal nodes. No obvious aneurysm. HEART AND VASCULAR STRUCTURES: No aneurysm. No pericardial effusion. UPPER ABDOMEN: No significant findings. Limited exam. THYROID AND OTHER SOFT TISSUES: No masses. No adenopathy. BONES: There is a pectus deformity. HARDWARE: None in the chest. OTHER: No other significant findings. IMPRESSION: Multicentric pneumonia. TECHNICAL DOCUMENTATION: JOB ID: [id number] Quality ID # [id number]: Final reports with documentation of one or more dose reduction techniques (e.g., Au tomated exposure control, adjustment of the mA and/or kV according to patient size, use of iterative reconstruction technique) 2010 [employer]- All Rights Reserved Reading location - IP/workstation name: [email or web address]
[2018-03-15] MEDS: CEFEPIME HCL 2 GM in NORMAL SALINE 50 ML IV SCH (19:00)
[2018-03-15] MEDS: VANCOMYCIN HCL 750 MG in DEXTROSE 5%-WATER 250 ML IV SCH (21:11)
[2018-03-16 01:08] LABS: ARTERIAL BLOOD BASE EXCESS 1.2 mmol/L; ARTERIAL BLOOD H2CO3 1.39 mmol/L (1.05-1.35); ARTERIAL BLOOD HCO3 26.7 mmol/L (20-26); ARTERIAL BLOOD O2 SATURATION 92.8 % (94-98); ARTERIAL BLOOD PCO2 46.1 mmHg (35-45); ARTERIAL BLOOD PH 7.38 (7.35-7.45); ARTERIAL BLOOD PO2 66.9 mmHg (80-100); ARTERIAL BLOOD TOTAL CO2 28.1 mmol/L (21-25)
[2018-03-16 01:10] LABS: ARTERIAL BLOOD FIO2 50%
--- NOTE | 2018-03-16 01:32 | RADIOLOGY REPORT (SQ) ---
EXAM DESCRIPTION: CHEST SINGLE VIEW CLINICAL HISTORY: Change in Respiratory Status COMPARISON: 03/15/2018 FINDINGS: Single frontal view of the chest. Atherosclerotic calcification of the aortic arch. Leads overlie the chest. Heart is not enlarged. Likely small left pleural effusion. Interval increase in diffuse bilateral alveolar opacities. No definite pneumothorax. No acute osseous abnormality identified. Upper abdominal soft tissues are unremarkable. IMPRESSION: 1. Interval increase in diffuse bilateral airspace opacity.
[2018-03-16] MEDS: VANCOMYCIN HCL 750 MG in DEXTROSE 5%-WATER 250 ML IV SCH ×3 (01:44→17:21)
[2018-03-16] MEDS ORDERED: FUROSEMIDE INJ/PF 40 MG/4 ML SDV IV ONE (01:54)
[2018-03-16 02:26] LABS: ABSOLUTE EOSINOPHILS # (AUTO) 0.1 10^3/uL (0.0-0.6); ABSOLUTE LYMPHOCYTES (AUTO) 0.9 10^3/uL (0.5-4.7); ABSOLUTE MONOCYTES (AUTO) 0.9 10^3/uL (0.1-1.4); ABSOLUTE NEUT (AUTO) 8.8 10^3/uL (1.7-8.2); BASOPHILS % (AUTO) 0.2 % (0-2); EOSINOPHILS % (AUTO) 1.1 % (0-6); HEMATOCRIT 26.3 % (36.0-47.0); LYMPHOCYTES % (AUTO) 8.3 % (13-45); MEAN CORPUSCULAR HEMOGLOBIN 32.4 pg (27.0-33.4); MEAN CORPUSCULAR HGB CONC 34.1 g/dL (32.0-36.0); MEAN CORPUSCULAR VOLUME 95 fl (80-97); MONOCYTES % (AUTO) 8.4 % (3-13); PLATELET COUNT 145 10^3/uL (150-450); RED BLOOD COUNT 2.76 10^6/uL (3.72-5.28); RED CELL DISTRIBUTION WIDTH 13.4 % (11.5-14.0); TOTAL CELLS COUNTED % (AUTO) 100 %; WHITE BLOOD COUNT 10.8 10^3/uL (4.0-10.5)
[2018-03-16 02:44] LABS: ANION GAP 6 (5-19); BLOOD UREA NITROGEN 13 mg/dL (7-20); CARBON DIOXIDE 29 mmol/L (22-30); CHLORIDE 104 mmol/L (98-107); GLUCOSE 118 mg/dL (75-110); PHOSPHORUS 3.7 mg/dL (2.5-4.5); POTASSIUM 3.3 mmol/L (3.6-5.0); SODIUM 139.3 mmol/L (137-145)
[2018-03-16] MEDS ORDERED: POTASSI CL 20 MEQ/50 ML RIDER 40 MEQ/100 ML RTUPB IV ONE (03:29)
[2018-03-16 03:33] LABS: ARTERIAL BLOOD BASE EXCESS 3.3 mmol/L; ARTERIAL BLOOD H2CO3 1.38 mmol/L (1.05-1.35); ARTERIAL BLOOD HCO3 28.4 mmol/L (20-26); ARTERIAL BLOOD O2 SATURATION 94.8 % (94-98); ARTERIAL BLOOD PH 7.41 (7.35-7.45); ARTERIAL BLOOD PO2 73.3 mmHg (80-100); ARTERIAL BLOOD TOTAL CO2 29.9 mmol/L (21-25)
[2018-03-16 03:36] LABS: ARTERIAL BLOOD FIO2 40%
[2018-03-16] MEDS: POTASSI CL 20 MEQ/50 ML RIDER 20 MEQ/50 ML RTUPB IV SCH ×5 (03:47→23:32)
[2018-03-16] MEDS: BUPROPION HCL 75 MG TABLET PO SCH ×3 (04:48→21:50)
[2018-03-16] MEDS: CITALOPRAM HYDROBROMIDE 20 MG TABLET PO SCH ×2 (04:48→21:48)
[2018-03-16] MEDS: TOPIRAMATE 100 MG TABLET PO SCH ×2 (04:48→21:48)
[2018-03-16] MEDS: CEFEPIME HCL 2 GM in NORMAL SALINE 50 ML IV SCH (06:29)
[2018-03-16] MEDS: HEPARIN SOD (PORCINE) 5,000 UNIT/ML 1 ML SYRINGE SUBCUT SCH ×3 (06:32→21:52)
[2018-03-16] MEDS: FUROSEMIDE INJ/PF 20 MG/2 ML SDV IV SCH ×2 (06:32→17:20)
[2018-03-16] MEDS: LANSOPRAZOLE 30 MG TAB.RAP.DR PO SCH (06:41)
--- NOTE | 2018-03-16 09:41 | XCELERA REPORT ---
[address] [address] Transthoracic Echocardiogram Report Name: YEVGENIY ODONNELL Age: 62 yrs Gender: Female : 1955 Patient Status: Inpatient Patient Location: ICU^[id number]^A Study Date: 03/15/2018 09:31 AM Height: 67 in Weight: 149 lb BSA: 1.8 m2 Procedure: A complete two-dimensional transthoracic echocardiogram was performed (2D, M-mode, spectral and color flow Doppler). The study was technically adequate with some images being suboptimal in quality. Reason For Study: chf Ordering Physician: PAULA PALOMARES Performed By: Cathy Cast Interpretation Summary The left ventricular ejection fraction is normal. There is borderline concentric left ventricular hypertrophy. The left ventricle is grossly normal size. Doppler measurements suggest pseudonormalized left ventricular relaxation, which is associated with grade II/IV or mild to moderate diastolic dysfunction Wall motion cannot be accurately commented on, but no definite regional wall motion abnormalities noted. The right ventricle is grossly normal size. The right ventricular systolic function is normal. The right atrium is normal in size The left atrial size is normal. There is a mild amount of mitral regurgitation There is no mitral valve stenosis. There is no aortic valve stenosis There is a trace to mild amount of aortic regurgitation There is a trace to mild amount of tricuspid regurgitation There is mild pulmonary hypertension by echo Right ventricular systolic pressure is estimated to be elevated at 30- 40mmHg. The aortic root is not well visualized but is probably normal size. The inferior vena cava appeared dilated and decreased < 50% with respiration (RAP 15-20 mmHg) Small pericardial effusion. There are no echocardiographic or Doppler indications for cardiac tamponade MMode/2D Measurements & Calculations RVDd: 2.4 cm LVIDd: 4.4 cm FS: 45.0 % Ao root diam: 3.1 cm IVSd: 1.0 cm LVIDs: 2.4 cm EDV(Teich): 87.4 ml LVPWd: 0.87 cm ESV(Teich): 20.5 ml Ao root area: 7.4 cm2 EF(Teich): 76.5 % LA dimension: 3.2 cm Doppler Measurements & Calculations MV E max flora: MV P1/2t max flora: Ao V2 max: LV V1 max P.8 cm/sec 131.3 cm/sec 216.2 cm/sec 13.5 mmHg MV A max flora: MV P1/2t: 64.7 msec Ao max PG: LV V1 max: 64.2 cm/sec 18.7 mmHg 183.7 cm/sec MV E/A: 2.0 MVA(P1/2t): 3.4 cm2 MV dec slope: 594.6 cm/sec2 MV dec time: 0.21 sec PA V2 max: TR max flora: 88.4 cm/sec 240.3 cm/sec PA max PG: TR max P.1 mmHg 3.1 mmHg Left Ventricle The left ventricle is grossly normal size. There is borderline concentric left ventricular hypertrophy. The left ventricular ejection fraction is normal. Doppler measurements suggest pseudonormalized left ventricular relaxation, which is associated with grade II/IV or mild to moderate diastolic dysfunction. Wall motion cannot be accurately commented on, but no definite regional wall motion abnormalities noted. Right Ventricle The right ventricle is grossly normal size. There is normal right ventricular wall thickness. The right ventricular systolic function is normal. Atria The right atrium is normal in size. The left atrial size is normal. Interarterial septum not well visualized and not well dopplered. Cannot comment on ASD/PFO presence. Mitral Valve The mitral valve leaflets are sclerotic, but show no functional abnormalities. There is no mitral valve stenosis. There is a mild amount of mitral regurgitation. Aortic Valve The aortic valve is grossly normal. There is no aortic valve stenosis. There is a trace to mild amount of aortic regurgitation. Tricuspid Valve The tricuspid valve is not well visualized, but is grossly normal. There is no tricuspid stenosis. There is a trace to mild amount of tricuspid regurgitation. There is mild pulmonary hypertension by echo. Right ventricular systolic pressure is estimated to be elevated at 30-40mmHg. Pulmonic Valve The pulmonic valve is not well visualized. Great Vessels The aortic root is not well visualized but is probably normal size. The inferior vena cava appeared dilated and decreased < 50% with respiration (RAP 15-20 mmHg). Effusions Small pericardial effusion. There are no echocardiographic or Doppler indications for cardiac tamponade. : PAULA PALOMARES > Ciarra Wills
--- NOTE | 2018-03-16 10:32 | PDOC PROGRESS REPORT ---
Subjective Progress Note for:: 03/16/18 Subjective:: 62-year-old white female status post ORIF and IM nail placement for left hip fracture. Patient had episode of acute respiratory distress syndrome was placed in ICU and on continuous BiPAP oxygen. She has since been moved from ICU and seems to be doing better. On exam this morning she has BiPAP placed over nose and mouth. She reports she is comfortable and notes little to no pain in left hip. Denies tingling numbness. Reason For Visit: LEFT HIP FRACTURE,ALCOHOL INTOXICATION Physical Exam Vital Signs: Temp Pulse Resp BP Pulse Ox 37.2 C 79 29 H 112/60 99 03/16/18 08:35 03/16/18 08:35 03/16/18 08:35 03/16/18 08:35 03/16/18 08:35 Intake & Output 03/15/18 03/16/18 03/17/18 06:59 06:59 06:59 Intake Total 1228 1126 Output Total 8395 0036 Balance -0429 -5124 Weight 60.8 kg 63.4 kg Additional comments: BiPAP mask placed over nose and mouth with machine running. Difficult to understand patient's speech due to placement of this device. Additional comments: Patient sitting upright in hospital bed with bilateral lower extremity is in full extension. Postoperative dressings are clean dry and intact. These are left in place. She is nontender to palpation over incision sites. There is resolving postoperative edema and ecchymosis along left lateral femur and popliteal space. She has minimal pedal edema, less than 2 seconds capillary refill to toes on left lower extremity. No sensory motor deficits noted. Patient exhibits she can lift her left leg off the bed and hold it for 5-10 seconds. Appropriate strength range of motion for this stage in healing process. No pain on initiation of motion. Additional comments: Per respiratory therapy and hospitalist service patient is not stable to ambulate currently. Once stable she will continue to work with physical therapy to improve strength range of motion and distance of ambulation on left lower extremity. She also work with physical therapy once discharged either to her home or extended care facility. Neurological exam: PRESENT: alert, awake, oriented to person, oriented to place , oriented to time, oriented to situation, CN II-XII grossly intact. ABSENT: motor sensory deficit Psychiatric exam: PRESENT: appropriate affect, normal mood. ABSENT: homicidal ideation, suicidal ideation Additional comments: Lower extremity ecchymosis as noted previously Results Laboratory Results: 03/16/18 02:07 03/16/18 02:07 03/15/18 03/16/18 03/16/18 16:28 00:55 02:07 WBC 10.8 H RBC 2.76 L Hgb 9.0 L Hct 26.3 L MCV 95 MCH 32.4 MCHC 34.1 RDW 13.4 Plt Count 145 L Seg Neutrophils % 82.0 H Lymphocytes % 8.3 L Monocytes % 8.4 Eosinophils % 1.1 Basophils % 0.2 Absolute Neutrophils 8.8 H Absolute Lymphocytes 0.9 Absolute Monocytes 0.9 Absolute Eosinophils 0.1 Absolute Basophils 0.0 Carbonic Acid 1.39 H HCO3/H2CO3 Ratio 19:1 ABG pH 7.38 ABG pCO2 46.1 H ABG pO2 66.9 L ABG HCO3 26.7 H ABG O2 Saturation 92.8 L ABG Base Excess 1.2 FiO2 50% Sodium Potassium Chloride Carbon Dioxide Anion Gap BUN Creatinine Est GFR ( Amer) Est GFR (Non-Af Amer) Glucose Lactic Acid 1.3 Calcium Phosphorus Magnesium 03/16/18 03/16/18 02:07 03:15 WBC RBC Hgb Hct MCV MCH MCHC RDW Plt Count Seg Neutrophils % Lymphocytes % Monocytes % Eosinophils % Basophils % Absolute Neutrophils Absolute Lymphocytes Absolute Monocytes Absolute Eosinophils Absolute Basophils Carbonic Acid 1.38 H HCO3/H2CO3 Ratio 20:1 ABG pH 7.41 ABG pCO2 46.0 H ABG pO2 73.3 L ABG HCO3 28.4 H ABG O2 Saturation 94.8 ABG Base Excess 3.3 FiO2 40% Sodium 139.3 Potassium 3.3 L Chloride 104 Carbon Dioxide 29 Anion Gap 6 BUN 13 Creatinine 0.43 L Est GFR ( Amer) > 60 Est GFR (Non-Af Amer) > 60 Glucose 118 H Lactic Acid Calcium 8.0 L Phosphorus 3.7 Magnesium 1.8 Impressions: Pelvis X-Ray 03/08/18 07:16 IMPRESSION: Acute left proximal femoral intertrochanteric fracture. Femur X-Ray 03/08/18 07:17 IMPRESSION: Acute left proximal femoral intertrochanteric fracture with moderate varus angulation Fluoroscopy 03/09/18 00:00 IMPRESSION: IMAGE(S) OBTAINED DURING PROCEDURE. Hip X-Ray 03/09/18 00:00 IMPRESSION: IMAGE(S) OBTAINED DURING PROCEDURE. Head CT 03/10/18 00:00 IMPRESSION: No acute intracranial changes. Frontal ethmoid and sphenoid sinusitis EVIDENCE OF ACUTE STROKE: No Chest CT 03/15/18 00:00 IMPRESSION: Multicentric pneumonia. Chest X-Ray 03/16/18 00:00 IMPRESSION: 1. Interval increase in diffuse bilateral airspace opacity. Assessment & Plan - Diagnosis (1) Fracture, intertrochanteric, left femur Qualifiers: Fracture type: closed Fracture healing: with routine healing Is this a current diagnosis for this admission?: Yes - Plan Summary Plan Summary: 62-year-old white female status post IM nail left intertrochanteric fracture Patient had episode of fluid overload and subsequent acute respiratory distress , secondary to continuous normal saline at 150 mL despite patient is tolerating p.o. Patient doing well on surgical floor and has been moved from ICU. There is apparently concern for bacterial pneumonia and possible secondary incidence of ARDS. Hospitalist and respiratory therapy continuing to manage. From an orthopedic standpoint patient is doing well postoperatively in terms of pain control and strength range of motion of left lower extremity. We will continue: 1. physical therapy weightbearing as tolerated once respiratory and hospitalist service team she is stable 2. Xarelto for DVT prophylaxis 3. pain control 4. discharge planning for placement in [facility] facility when medically stable
[2018-03-16] MEDS: ONDANSETRON HCL INJ/PF 4 MG/2 ML SDV IV PRN (13:46)
--- NOTE | 2018-03-16 16:00 | PDOC PROGRESS REPORT ---
Subjective Progress Note for:: 03/16/18 Subjective:: Patient is somnolent though arousable, not interactive, she denied pain or discomfort. She has had progressive respiratory distress overnight, was started on BiPAP, and appears to be tolerating that and resting comfortably. Daughter informs me that she has had a long-standing DO NOT RESUSCITATE, though I am unable to have that conversation with the patient Reason For Visit: LEFT HIP FRACTURE,ALCOHOL INTOXICATION Physical Exam Vital Signs: Temp Pulse Resp BP Pulse Ox 98.9 F 79 31 H 112/60 99 03/16/18 08:35 03/16/18 08:35 03/16/18 11:35 03/16/18 08:35 03/16/18 11:35 Pulse Oximeter Continuous Start: 03/16/18 09: 05 Freq: RTQ4 Status: Active Document 03/16/18 11:35 HCR (Rec: 03/16/18 12:42 HCR [email or web address]) Pulse Oximetry Assessment Oxygen Saturation (92-100) 99 Oxygen Delivery Method Bi-pap Fraction of Inspired Oxygen (FIO2) 40 Equipment Usage Equipment in Use Continuous SpO2 Machine # 13 Intake & Output 03/15/18 03/16/18 03/17/18 06:59 06:59 06:59 Intake Total 1228 1126 Output Total 5607 6893 Balance -1481 -1116 Weight 60.8 kg 63.4 kg General appearance: PRESENT: no acute distress, thin Exam: Chronically ill appearing. Looks older than her chronological age Eye exam: PRESENT: PERRLA Respiratory exam: PRESENT: crackles - Diffuse bilaterally, symmetrical. ABSENT : rhonchi, wheezes Cardiovascular exam: PRESENT: RRR GI/Abdominal exam: PRESENT: soft Extremities exam: ABSENT: +1 edema Neurological exam: PRESENT: other - No focal deficits. Moving all extremities. We will follow simple commands. ABSENT: alert, altered Psychiatric exam: PRESENT: flat affect Skin exam: PRESENT: warm Results Laboratory Results: 03/16/18 02:07 03/16/18 02:07 03/15/18 03/16/18 03/16/18 16:28 00:55 02:07 WBC 10.8 H RBC 2.76 L Hgb 9.0 L Hct 26.3 L MCV 95 MCH 32.4 MCHC 34.1 RDW 13.4 Plt Count 145 L Seg Neutrophils % 82.0 H Lymphocytes % 8.3 L Monocytes % 8.4 Eosinophils % 1.1 Basophils % 0.2 Absolute Neutrophils 8.8 H Absolute Lymphocytes 0.9 Absolute Monocytes 0.9 Absolute Eosinophils 0.1 Absolute Basophils 0.0 Carbonic Acid 1.39 H HCO3/H2CO3 Ratio 19:1 ABG pH 7.38 ABG pCO2 46.1 H ABG pO2 66.9 L ABG HCO3 26.7 H ABG O2 Saturation 92.8 L ABG Base Excess 1.2 FiO2 50% Sodium Potassium Chloride Carbon Dioxide Anion Gap BUN Creatinine Est GFR ( Amer) Est GFR (Non-Af Amer) Glucose Lactic Acid 1.3 Calcium Phosphorus Magnesium 03/16/18 03/16/18 02:07 03:15 WBC RBC Hgb Hct MCV MCH MCHC RDW Plt Count Seg Neutrophils % Lymphocytes % Monocytes % Eosinophils % Basophils % Absolute Neutrophils Absolute Lymphocytes Absolute Monocytes Absolute Eosinophils Absolute Basophils Carbonic Acid 1.38 H HCO3/H2CO3 Ratio 20:1 ABG pH 7.41 ABG pCO2 46.0 H ABG pO2 73.3 L ABG HCO3 28.4 H ABG O2 Saturation 94.8 ABG Base Excess 3.3 FiO2 40% Sodium 139.3 Potassium 3.3 L Chloride 104 Carbon Dioxide 29 Anion Gap 6 BUN 13 Creatinine 0.43 L Est GFR ( Amer) > 60 Est GFR (Non-Af Amer) > 60 Glucose 118 H Lactic Acid Calcium 8.0 L Phosphorus 3.7 Magnesium 1.8 Impressions: Pelvis X-Ray 03/08/18 07:16 IMPRESSION: Acute left proximal femoral intertrochanteric fracture. Femur X-Ray 03/08/18 07:17 IMPRESSION: Acute left proximal femoral intertrochanteric fracture with moderate varus angulation Fluoroscopy 03/09/18 00:00 IMPRESSION: IMAGE(S) OBTAINED DURING PROCEDURE. Hip X-Ray 03/09/18 00:00 IMPRESSION: IMAGE(S) OBTAINED DURING PROCEDURE. Head CT 03/10/18 00:00 IMPRESSION: No acute intracranial changes. Frontal ethmoid and sphenoid sinusitis EVIDENCE OF ACUTE STROKE: No Chest CT 03/15/18 00:00 IMPRESSION: Multicentric pneumonia. Chest X-Ray 03/16/18 00:00 IMPRESSION: 1. Interval increase in diffuse bilateral airspace opacity. Assessment & Plan - Diagnosis (1) Acute respiratory failure Qualifiers: Respiratory failure complication: hypoxia and hypercapnia Qualified Code(s) : J96.01 - Acute respiratory failure with hypoxia; J96.02 - Acute respiratory failure with hypercapnia; J96.02 - Acute respiratory failure with hypercapnia; J96.02 - Acute respiratory failure with hypercapnia Is this a current diagnosis for this admission?: Yes Plan: Chest x-ray is consistent with ARDS. She does not appear to be fluid overloaded , she got a dose of Lasix last night and put out briskly, but that did not appear to improve her respiratory status. She is on broad-spectrum antibiotics , her white count is not elevated, she has had a single very low-grade fever, and if she has any pneumonia at all it would be out of proportion to her chest x -ray. I will continue her antibiotics empirically, continue her BiPAP, put her on nebulizers, and continue to monitor closely for further deterioration. I discussed her severe condition with her daughter and expressed my concern that if she continued to deteriorate she would probably need to be intubated. Daughter, who is next of kin, requested that the patient be a DNR consistent with the patient's previously stated wishes. (2) Encephalopathy acute Is this a current diagnosis for this admission?: Yes Plan: Hold sedating medications and continue to monitor closely. (3) Alcohol abuse Is this a current diagnosis for this admission?: Yes Plan: Unclear severity and duration. Daughter states that she was not a heavy drinker (4) Depression with anxiety Is this a current diagnosis for this admission?: Yes Plan: Continue home medication (5) Fracture, intertrochanteric, left femur Qualifiers: Fracture type: closed Fracture healing: with routine healing Is this a current diagnosis for this admission?: Yes Plan: Per orthopedics. Appears to be healing well. (6) Thrombocytopenia Is this a current diagnosis for this admission?: Yes Plan: Improving. (7) DNR (do not resuscitate) Is this a current diagnosis for this admission?: Yes
[2018-03-16 16:52] LABS: ABSOLUTE EOSINOPHILS # (AUTO) 0.1 10^3/uL (0.0-0.6); ABSOLUTE LYMPHOCYTES (AUTO) 0.9 10^3/uL (0.5-4.7); ABSOLUTE MONOCYTES (AUTO) 0.9 10^3/uL (0.1-1.4); ABSOLUTE NEUT (AUTO) 7.7 10^3/uL (1.7-8.2); BASOPHILS % (AUTO) 0.3 % (0-2); EOSINOPHILS % (AUTO) 0.9 % (0-6); HEMATOCRIT 25.2 % (36.0-47.0); HEMOGLOBIN 8.6 g/dL (12.0-15.5); LYMPHOCYTES % (AUTO) 9.2 % (13-45); MEAN CORPUSCULAR HEMOGLOBIN 32.4 pg (27.0-33.4); MEAN CORPUSCULAR HGB CONC 34.2 g/dL (32.0-36.0); MEAN CORPUSCULAR VOLUME 95 fl (80-97); MONOCYTES % (AUTO) 9.3 % (3-13); PLATELET COUNT 171 10^3/uL (150-450); RED BLOOD COUNT 2.66 10^6/uL (3.72-5.28); RED CELL DISTRIBUTION WIDTH 13.4 % (11.5-14.0); SEGMENTED NEUTROPHILS % (AUTO) 80.3 % (42-78); TOTAL CELLS COUNTED % (AUTO) 100 %; WHITE BLOOD COUNT 9.6 10^3/uL (4.0-10.5)
[2018-03-16 17:16] LABS: VANCOMYCIN,TROUGH 10.1 ug/mL (5.0-20.0)
[2018-03-16] MEDS: CEFEPIME HCL 2 GM in NORMAL SALINE 100 ML IV SCH (19:44)
[2018-03-16] MEDS ORDERED: POTASSI CL 20 MEQ/50 ML RIDER 20 MEQ/50 ML RTUPB IV ONE (23:22)
[2018-03-17] MEDS: TRAMADOL HCL 50 MG TABLET PO PRN ×3 (02:11→21:45)
[2018-03-17] MEDS: ONDANSETRON 4 MG TAB.RAPDIS PO PRN ×2 (02:12→18:31)
[2018-03-17] MEDS: VANCOMYCIN HCL 1,000 MG in NORMAL SALINE 250 ML IV SCH ×3 (02:20→18:31)
[2018-03-17 05:27] LABS: ARTERIAL BLOOD BASE EXCESS 3.2 mmol/L; ARTERIAL BLOOD FIO2 35%; ARTERIAL BLOOD H2CO3 1.21 mmol/L (1.05-1.35); ARTERIAL BLOOD HCO3 27.4 mmol/L (20-26); ARTERIAL BLOOD O2 SATURATION 95.1 % (94-98); ARTERIAL BLOOD PCO2 40.3 mmHg (35-45); ARTERIAL BLOOD PH 7.45 (7.35-7.45); ARTERIAL BLOOD PO2 71.5 mmHg (80-100); ARTERIAL BLOOD TOTAL CO2 28.6 mmol/L (21-25)
[2018-03-17] MEDS: HEPARIN SOD (PORCINE) 5,000 UNIT/ML 1 ML SYRINGE SUBCUT SCH ×3 (05:27→21:50)
[2018-03-17] MEDS: CEFEPIME HCL 2 GM in NORMAL SALINE 100 ML IV SCH ×2 (06:25→17:42)
[2018-03-17] MEDS: LANSOPRAZOLE 30 MG TAB.RAP.DR PO SCH (06:28)
[2018-03-17] MEDS: FUROSEMIDE INJ/PF 20 MG/2 ML SDV IV SCH (06:29)
[2018-03-17 07:12] LABS: ALANINE AMINOTRANSFERASE 32 U/L (9-52); ALBUMIN 2.3 g/dL (3.5-5.0); ALKALINE PHOSPHATASE 49 U/L (38-126); ANION GAP 8 (5-19); ASPARTATE AMINO TRANSFERASE 33 U/L (14-36); BILIRUBIN,DIRECT 0.8 mg/dL (0.0-0.4); BILIRUBIN,TOTAL 1.8 mg/dL (0.2-1.3); BLOOD UREA NITROGEN 15 mg/dL (7-20); CALCIUM 7.7 mg/dL (8.4-10.2); CARBON DIOXIDE 27 mmol/L (22-30); CHLORIDE 102 mmol/L (98-107); GLUCOSE 96 mg/dL (75-110); PHOSPHORUS 2.6 mg/dL (2.5-4.5); POTASSIUM 3.4 mmol/L (3.6-5.0); SODIUM 136.8 mmol/L (137-145); TOTAL PROTEIN 4.7 g/dL (6.3-8.2)
[2018-03-17] MEDS ORDERED: IPRATROPIUM/ALBUTEROL 0.5-2.5 MG/3 ML AMPUL NEB PRN (09:58)
[2018-03-17] MEDS: BUPROPION HCL 75 MG TABLET PO SCH ×2 (10:26→21:47)
[2018-03-17] MEDS ORDERED: POTASSIUM CHLORIDE 10 MEQ TABLET.SA PO ONE (10:30)
[2018-03-17 11:01] LABS: ARTERIAL BLOOD BASE EXCESS 4.9 mmol/L; ARTERIAL BLOOD FIO2 3.5 L; ARTERIAL BLOOD H2CO3 1.11 mmol/L (1.05-1.35); ARTERIAL BLOOD HCO3 28.1 mmol/L (20-26); ARTERIAL BLOOD O2 SATURATION 93.1 % (94-98); ARTERIAL BLOOD TOTAL CO2 29.3 mmol/L (21-25)
[2018-03-17] MEDS ORDERED: IRON SUCROSE COMPLEX INJ/PF 100 MG/5 ML SDV IV ONE (11:30)
--- NOTE | 2018-03-17 12:40 | PDOC PROGRESS REPORT ---
Subjective Progress Note for:: 03/17/18 Subjective:: Much more alert and interactive today. Comfortable and conversational on 3 L per nasal cannula. Daughter at the bedside. We had a long discussion about her current condition, prognosis, and plan. She appeared to understand. Reason For Visit: LEFT HIP FRACTURE,ALCOHOL INTOXICATION Physical Exam Vital Signs: Temp Pulse Resp BP Pulse Ox 97.6 F 76 26 H 97/54 L 94 03/17/18 07:38 03/17/18 07:00 03/17/18 07:38 03/17/18 07:38 03/17/18 04:00 Pulse Oximeter Continuous Start: 03/16/18 09: 05 Freq: RTQ4 Status: Active Document 03/17/18 04:00 EAL (Rec: 03/17/18 05:20 EAL [email or web address]) Pulse Oximetry Assessment Oxygen Saturation (92-100) 94 Oxygen Delivery Method Bi-pap Fraction of Inspired Oxygen (FIO2) 35 Equipment Usage Equipment in Use Continuous SpO2 Machine # 13 Intake & Output 03/16/18 03/17/18 03/18/18 06:59 06:59 06:59 Intake Total 1126 1680 Output Total 4395 1325 Balance -3269 -845 Weight 63.4 kg 65.9 kg General appearance: PRESENT: no acute distress Exam: Chronically ill-appearing looks considerably older than her chronological age Respiratory exam: PRESENT: crackles - Diffuse bilaterally Cardiovascular exam: PRESENT: RRR GI/Abdominal exam: PRESENT: soft Neurological exam: PRESENT: awake, oriented to person, oriented to place, oriented to situation, CN II-XII grossly intact. ABSENT: motor sensory deficit Skin exam: PRESENT: warm Results Laboratory Results: 03/16/18 16:37 03/17/18 05:56 03/16/18 03/16/18 03/16/18 16:37 16:37 16:37 WBC 9.6 RBC 2.66 L Hgb 8.6 L Hct 25.2 L MCV 95 MCH 32.4 MCHC 34.2 RDW 13.4 Plt Count 171 Seg Neutrophils % 80.3 H Lymphocytes % 9.2 L Monocytes % 9.3 Eosinophils % 0.9 Basophils % 0.3 Absolute Neutrophils 7.7 Absolute Lymphocytes 0.9 Absolute Monocytes 0.9 Absolute Eosinophils 0.1 Absolute Basophils 0.0 Carbonic Acid HCO3/H2CO3 Ratio ABG pH ABG pCO2 ABG pO2 ABG HCO3 ABG O2 Saturation ABG Base Excess FiO2 Sodium Potassium Chloride Carbon Dioxide Anion Gap BUN Creatinine 0.46 L Est GFR ( Amer) > 60 Est GFR (Non-Af Amer) > 60 Glucose Calcium Phosphorus Magnesium 1.6 Iron 17.1 L Total Bilirubin AST ALT Alkaline Phosphatase Total Protein Albumin 03/17/18 03/17/18 03/17/18 05:03 05:56 09:33 WBC RBC Hgb Hct MCV MCH MCHC RDW Plt Count Seg Neutrophils % Lymphocytes % Monocytes % Eosinophils % Basophils % Absolute Neutrophils Absolute Lymphocytes Absolute Monocytes Absolute Eosinophils Absolute Basophils Carbonic Acid 1.21 1.11 HCO3/H2CO3 Ratio 22:1 25:1 ABG pH 7.45 7.50 H ABG pCO2 40.3 37.0 ABG pO2 71.5 L 60.0 L ABG HCO3 27.4 H 28.1 H ABG O2 Saturation 95.1 93.1 L ABG Base Excess 3.2 4.9 FiO2 35% 3.5 L Sodium 136.8 L Potassium 3.4 L Chloride 102 Carbon Dioxide 27 Anion Gap 8 BUN 15 Creatinine 0.49 L Est GFR ( Amer) > 60 Est GFR (Non-Af Amer) > 60 Glucose 96 Calcium 7.7 L Phosphorus 2.6 Magnesium Iron Total Bilirubin 1.8 H AST 33 ALT 32 Alkaline Phosphatase 49 Total Protein 4.7 L Albumin 2.3 L Impressions: Pelvis X-Ray 03/08/18 07:16 IMPRESSION: Acute left proximal femoral intertrochanteric fracture. Femur X-Ray 03/08/18 07:17 IMPRESSION: Acute left proximal femoral intertrochanteric fracture with moderate varus angulation Fluoroscopy 03/09/18 00:00 IMPRESSION: IMAGE(S) OBTAINED DURING PROCEDURE. Hip X-Ray 03/09/18 00:00 IMPRESSION: IMAGE(S) OBTAINED DURING PROCEDURE. Head CT 03/10/18 00:00 IMPRESSION: No acute intracranial changes. Frontal ethmoid and sphenoid sinusitis EVIDENCE OF ACUTE STROKE: No Chest CT 03/15/18 00:00 IMPRESSION: Multicentric pneumonia. Chest X-Ray 03/16/18 00:00 IMPRESSION: 1. Interval increase in diffuse bilateral airspace opacity. Assessment & Plan - Diagnosis (1) Acute respiratory failure Qualifiers: Respiratory failure complication: hypoxia and hypercapnia Qualified Code(s) : J96.01 - Acute respiratory failure with hypoxia; J96.02 - Acute respiratory failure with hypercapnia; J96.02 - Acute respiratory failure with hypercapnia; J96.02 - Acute respiratory failure with hypercapnia Is this a current diagnosis for this admission?: Yes Plan: Chest x-ray is consistent with ARDS. She does not appear to be fluid overloaded , she got a dose of Lasix last night and put out briskly, but that did not appear to improve her respiratory status. She is on broad-spectrum antibiotics , her white count is not elevated, she has had a single very low-grade fever, and if she has any pneumonia at all it would be out of proportion to her chest x -ray. I will continue her antibiotics empirically, continue her BiPAP, put her on nebulizers, and continue to monitor closely for further deterioration. Consult pulmonology see if they have any further ideas, in the meantime continue present management. She does have a long-standing smoking history, so a component of this could be a COPD exacerbation though I do not think this is the fundamental problem, nevertheless, I will start her on some steroids. I had a lengthy discussion with the patient and her daughter about resuscitation status. Patient affirms that historically she has been a DNR, presently she would like to be a full code. (2) Encephalopathy acute Is this a current diagnosis for this admission?: Yes Plan: Sedating medications were held. Considerably improved today. I will restart some pain and anxiety medications at a lower dose (3) Alcohol abuse Is this a current diagnosis for this admission?: Yes Plan: Unclear severity and duration. Daughter states that she was not a heavy drinker (4) Depression with anxiety Is this a current diagnosis for this admission?: Yes Plan: Continue home medication (5) Fracture, intertrochanteric, left femur Qualifiers: Fracture type: closed Fracture healing: with routine healing Is this a current diagnosis for this admission?: Yes Plan: Per orthopedics. Appears to be healing well. (6) Thrombocytopenia Is this a current diagnosis for this admission?: Yes Plan: Improving.
[2018-03-17] MEDS: METHYLPREDNISOLONE INJ 40 MG/1 ML SDV IV SCH ×2 (13:18→21:48)
--- NOTE | 2018-03-17 13:24 | PDOC PROGRESS REPORT ---
Subjective Progress Note for:: 03/17/18 Subjective:: 62 yo white female s/p IM nail placement for left femoral fracture. Patient reports she is not experiencing pain and continues self guided exercises. she is sitting upright in hospital bed without biPAP mask over nose and mouth. Reason For Visit: LEFT HIP FRACTURE,ALCOHOL INTOXICATION Physical Exam Vital Signs: Temp Pulse Resp BP Pulse Ox 36.4 C 76 26 H 97/54 L 94 03/17/18 07:38 03/17/18 07:00 03/17/18 07:38 03/17/18 07:38 03/17/18 04:00 Pulse Oximeter Continuous Start: 03/16/18 09: 05 Freq: RTQ4 Status: Active Document 03/17/18 04:00 EAL (Rec: 03/17/18 05:20 EAL [email or web address]) Pulse Oximetry Assessment Oxygen Saturation (92-100) 94 Oxygen Delivery Method Bi-pap Fraction of Inspired Oxygen (FIO2) 35 Equipment Usage Equipment in Use Continuous SpO2 Machine # 13 Intake & Output 03/16/18 03/17/18 03/18/18 06:59 06:59 06:59 Intake Total 1126 1680 Output Total 4395 3455 Balance -3269 -845 Weight 63.4 kg 65.9 kg General appearance: PRESENT: no acute distress, well-developed, well-nourished Head exam: PRESENT: atraumatic, normocephalic Pulses: PRESENT: normal dorsalis pedis pul, +2 pedal pulses bilateral Additional comments: Patient sitting upright in hospital bed with bilateral lower extremities in full extension. Left leg elevated on multiple pillows. Postoperative dressings clean, dry and intact, these are left in place. No tenderness to plapation over incision site. Resolving post-operative echymosis and edema along lateral and posterior aspect fo left leg. Minial pedal edema. Full range of motion of knee and ankle. Limited ROM of left hip, particularly with flexion, adduction, abduction. Patient encouraged to initiate ROM. No sensory or motor deficits. +2 dorsalis pedis pulse, less that 2 seconds capillary refill to toes on left foot. Additional comments: Patient remains non-ambulatory per respiratory and medical service, indicating she is not yet stable enough to ambulate. Neurological exam: PRESENT: alert, awake, oriented to person, oriented to place , oriented to time, oriented to situation, CN II-XII grossly intact. ABSENT: motor sensory deficit Psychiatric exam: PRESENT: appropriate affect, normal mood. ABSENT: homicidal ideation, suicidal ideation Skin exam: PRESENT: dry, intact, warm. ABSENT: cyanosis, rash Results Laboratory Results: 03/16/18 16:37 03/17/18 05:56 03/16/18 03/16/18 03/16/18 16:37 16:37 16:37 WBC 9.6 RBC 2.66 L Hgb 8.6 L Hct 25.2 L MCV 95 MCH 32.4 MCHC 34.2 RDW 13.4 Plt Count 171 Seg Neutrophils % 80.3 H Lymphocytes % 9.2 L Monocytes % 9.3 Eosinophils % 0.9 Basophils % 0.3 Absolute Neutrophils 7.7 Absolute Lymphocytes 0.9 Absolute Monocytes 0.9 Absolute Eosinophils 0.1 Absolute Basophils 0.0 Carbonic Acid HCO3/H2CO3 Ratio ABG pH ABG pCO2 ABG pO2 ABG HCO3 ABG O2 Saturation ABG Base Excess FiO2 Sodium Potassium Chloride Carbon Dioxide Anion Gap BUN Creatinine 0.46 L Est GFR ( Amer) > 60 Est GFR (Non-Af Amer) > 60 Glucose Calcium Phosphorus Magnesium 1.6 Iron 17.1 L Total Bilirubin AST ALT Alkaline Phosphatase Total Protein Albumin 03/17/18 03/17/18 03/17/18 05:03 05:56 09:33 WBC RBC Hgb Hct MCV MCH MCHC RDW Plt Count Seg Neutrophils % Lymphocytes % Monocytes % Eosinophils % Basophils % Absolute Neutrophils Absolute Lymphocytes Absolute Monocytes Absolute Eosinophils Absolute Basophils Carbonic Acid 1.21 1.11 HCO3/H2CO3 Ratio 22:1 25:1 ABG pH 7.45 7.50 H ABG pCO2 40.3 37.0 ABG pO2 71.5 L 60.0 L ABG HCO3 27.4 H 28.1 H ABG O2 Saturation 95.1 93.1 L ABG Base Excess 3.2 4.9 FiO2 35% 3.5 L Sodium 136.8 L Potassium 3.4 L Chloride 102 Carbon Dioxide 27 Anion Gap 8 BUN 15 Creatinine 0.49 L Est GFR ( Amer) > 60 Est GFR (Non-Af Amer) > 60 Glucose 96 Calcium 7.7 L Phosphorus 2.6 Magnesium Iron Total Bilirubin 1.8 H AST 33 ALT 32 Alkaline Phosphatase 49 Total Protein 4.7 L Albumin 2.3 L Impressions: Pelvis X-Ray 03/08/18 07:16 IMPRESSION: Acute left proximal femoral intertrochanteric fracture. Femur X-Ray 03/08/18 07:17 IMPRESSION: Acute left proximal femoral intertrochanteric fracture with moderate varus angulation Fluoroscopy 03/09/18 00:00 IMPRESSION: IMAGE(S) OBTAINED DURING PROCEDURE. Hip X-Ray 03/09/18 00:00 IMPRESSION: IMAGE(S) OBTAINED DURING PROCEDURE. Head CT 03/10/18 00:00 IMPRESSION: No acute intracranial changes. Frontal ethmoid and sphenoid sinusitis EVIDENCE OF ACUTE STROKE: No Chest CT 03/15/18 00:00 IMPRESSION: Multicentric pneumonia. Chest X-Ray 03/16/18 00:00 IMPRESSION: 1. Interval increase in diffuse bilateral airspace opacity. Assessment & Plan - Diagnosis (1) Fracture, intertrochanteric, left femur Qualifiers: Fracture type: closed Fracture healing: with routine healing Is this a current diagnosis for this admission?: Yes - Plan Summary Plan Summary: 62-year-old white female status post IM nail left intertrochanteric fracture Patient is currently being followed by hospitalist and respiratory therapy for management of possible bacterial pneumonia and ARDS. From an orthopedic standpoint patient is doing well postoperatively in terms of pain control and strength range of motion of left lower extremity. We will continue: 1. physical therapy weight bearing as tolerated once respiratory and hospitalist service team she is stable, meanwhile initiate gentle ROM of left hip 2. Xarelto for DVT prophylaxis 3. pain control 4. discharge planning for placement in [facility] facility when medically stable
[2018-03-17] MEDS: LEVALBUTEROL HCL NEB 1.25 MG/3 ML AMPUL NEB SCH ×2 (14:28→19:44)
[2018-03-17] MEDS: POTASSIUM CHLORIDE 10 MEQ TABLET.SA PO SCH (17:40)
[2018-03-17] MEDS: ASCORBIC ACID 500 MG TABLET PO SCH (17:40)
[2018-03-17] MEDS: FERROUS SULFATE 325 MG TABLET PO SCH (17:41)
[2018-03-17] MEDS: DIAZEPAM 2 MG TABLET PO PRN (17:49)
[2018-03-17] MEDS: CITALOPRAM HYDROBROMIDE 20 MG TABLET PO SCH (21:46)
[2018-03-17] MEDS: TOPIRAMATE 100 MG TABLET PO SCH (21:47)
[2018-03-18] MEDS: LEVALBUTEROL HCL NEB 1.25 MG/3 ML AMPUL NEB SCH ×4 (01:23→20:36)
[2018-03-18] MEDS: VANCOMYCIN HCL 1,000 MG in NORMAL SALINE 250 ML IV SCH ×3 (02:42→18:40)
[2018-03-18] MEDS: METHYLPREDNISOLONE INJ 40 MG/1 ML SDV IV SCH ×3 (05:37→21:10)
[2018-03-18] MEDS: LANSOPRAZOLE 30 MG TAB.RAP.DR PO SCH (05:37)
[2018-03-18] MEDS: CEFEPIME HCL 2 GM in NORMAL SALINE 100 ML IV SCH (05:38)
[2018-03-18] MEDS: HEPARIN SOD (PORCINE) 5,000 UNIT/ML 1 ML SYRINGE SUBCUT SCH ×3 (05:39→21:13)
[2018-03-18] MEDS: HYDROCHLOROTHIAZIDE 25 MG TABLET PO SCH (07:45)
[2018-03-18] MEDS: POTASSIUM CHLORIDE 10 MEQ TABLET.SA PO SCH ×2 (07:47→17:14)
[2018-03-18] MEDS: ASCORBIC ACID 500 MG TABLET PO SCH ×2 (10:31→17:15)
[2018-03-18] MEDS: BUPROPION HCL 75 MG TABLET PO SCH ×2 (10:31→21:09)
[2018-03-18] MEDS: FERROUS SULFATE 325 MG TABLET PO SCH ×2 (10:31→17:15)
[2018-03-18] MEDS: TRAMADOL HCL 50 MG TABLET PO PRN ×2 (10:31→21:08)
[2018-03-18 11:23] LABS: VANCOMYCIN,TROUGH 16.7 ug/mL (5.0-20.0)
--- NOTE | 2018-03-18 15:58 | PDOC PROGRESS REPORT ---
Subjective Progress Note for:: 03/18/18 Subjective:: Lying in bed at about 59 on a nasal cannula. Continues to look more oriented, and be more conversational. Reason For Visit: LEFT HIP FRACTURE,ALCOHOL INTOXICATION Physical Exam Vital Signs: Temp Pulse Resp BP Pulse Ox 97.8 F 71 18 105/59 L 94 03/18/18 11:27 03/18/18 14:15 03/18/18 14:15 03/18/18 11:27 03/18/18 14:15 Pulse Oximeter Continuous Start: 03/16/18 09: 05 Freq: RTQ4 Status: Active Document 03/18/18 12:00 JDR (Rec: 03/18/18 14:11 JDR [email or web address]) Pulse Oximetry Assessment Oxygen Saturation (92-100) 96 Oxygen Flow Rate (L/min) 4 Oxygen Delivery Method Nasal Cannula Equipment Usage Equipment in Use Continuous SpO2 Machine # 13 Additional RT Notes Other pt unable to tolerate Intake & Output 03/17/18 03/18/18 03/19/18 06:59 06:59 06:59 Intake Total 1680 1864 Output Total 2525 2000 Balance -845 -136 Weight 65.9 kg 68.7 kg General appearance: PRESENT: no acute distress, cooperative Respiratory exam: PRESENT: crackles. ABSENT: tachypnea Cardiovascular exam: PRESENT: RRR GI/Abdominal exam: PRESENT: soft Extremities exam: PRESENT: other - No edema Musculoskeletal exam: PRESENT: normal inspection Neurological exam: PRESENT: alert, oriented to person, oriented to place, oriented to situation Psychiatric exam: PRESENT: appropriate affect, normal mood Skin exam: PRESENT: dry, warm Results Laboratory Results: 03/16/18 16:37 03/17/18 05:56 Impressions: Pelvis X-Ray 03/08/18 07:16 IMPRESSION: Acute left proximal femoral intertrochanteric fracture. Femur X-Ray 03/08/18 07:17 IMPRESSION: Acute left proximal femoral intertrochanteric fracture with moderate varus angulation Fluoroscopy 03/09/18 00:00 IMPRESSION: IMAGE(S) OBTAINED DURING PROCEDURE. Hip X-Ray 03/09/18 00:00 IMPRESSION: IMAGE(S) OBTAINED DURING PROCEDURE. Head CT 03/10/18 00:00 IMPRESSION: No acute intracranial changes. Frontal ethmoid and sphenoid sinusitis EVIDENCE OF ACUTE STROKE: No Chest CT 03/15/18 00:00 IMPRESSION: Multicentric pneumonia. Chest X-Ray 03/16/18 00:00 IMPRESSION: 1. Interval increase in diffuse bilateral airspace opacity. Assessment & Plan - Diagnosis (1) Acute respiratory failure Qualifiers: Respiratory failure complication: hypoxia and hypercapnia Qualified Code(s) : J96.01 - Acute respiratory failure with hypoxia; J96.02 - Acute respiratory failure with hypercapnia; J96.02 - Acute respiratory failure with hypercapnia; J96.02 - Acute respiratory failure with hypercapnia Is this a current diagnosis for this admission?: Yes Plan: Chest x-ray is consistent with ARDS. She does not appear to be fluid overloaded , she got a dose of Lasix last night and put out briskly, but that did not appear to improve her respiratory status. She is on broad-spectrum antibiotics , her white count is not elevated, she has had a single very low-grade fever, and if she has any pneumonia at all it would be out of proportion to her chest x -ray. I will continue her antibiotics empirically, continue her BiPAP, put her on nebulizers, and continue to monitor closely for further deterioration. Pulmonology instituted more aggressive pulmonary toilet She does have a long-standing smoking history, so a component of this could be a COPD exacerbation though I do not think this is the fundamental problem, nevertheless, I will start her on some steroids. (2) Encephalopathy acute Is this a current diagnosis for this admission?: Yes Plan: Sedating medications were held. Considerably improved today. Continue current pain and anxiolytic medications. She continues to have vague complaints of pain. States she cannot tell me what hurts, but needs something for pain. Continue very cautious use of sedating medications. (3) Alcohol abuse Is this a current diagnosis for this admission?: Yes Plan: Unclear severity and duration. Daughter states that she was not a heavy drinker (4) Depression with anxiety Is this a current diagnosis for this admission?: Yes Plan: Continue home medication (5) Fracture, intertrochanteric, left femur Qualifiers: Fracture type: closed Fracture healing: with routine healing Is this a current diagnosis for this admission?: Yes Plan: Per orthopedics. Appears to be healing well. (6) Thrombocytopenia Is this a current diagnosis for this admission?: Yes Plan: Resolved. (7) Iron deficiency anemia Is this a current diagnosis for this admission?: Yes Plan: Iron replacement instituted -continue.
[2018-03-18] MEDS: CEFEPIME HCL 2 GM in DEXTROSE 5%-WATER 50 ML IV SCH (17:16)
[2018-03-18] MEDS: DIAZEPAM 2 MG TABLET PO PRN (17:53)
[2018-03-18] MEDS: TOPIRAMATE 100 MG TABLET PO SCH (21:07)
[2018-03-18] MEDS: CITALOPRAM HYDROBROMIDE 20 MG TABLET PO SCH (21:10)
[2018-03-19] MEDS: DIAZEPAM 2 MG TABLET PO PRN ×3 (00:07→21:34)
[2018-03-19] MEDS: LEVALBUTEROL HCL NEB 1.25 MG/3 ML AMPUL NEB SCH ×4 (01:49→20:51)
[2018-03-19] MEDS: VANCOMYCIN HCL 1,000 MG in NORMAL SALINE 250 ML IV SCH ×3 (02:00→18:43)
[2018-03-19] MEDS: LANSOPRAZOLE 30 MG TAB.RAP.DR PO SCH (06:58)
[2018-03-19] MEDS: CEFEPIME HCL 2 GM in DEXTROSE 5%-WATER 50 ML IV SCH ×2 (06:58→17:41)
[2018-03-19] MEDS: METHYLPREDNISOLONE INJ 40 MG/1 ML SDV IV SCH (06:58)
[2018-03-19] MEDS: HEPARIN SOD (PORCINE) 5,000 UNIT/ML 1 ML SYRINGE SUBCUT SCH ×3 (06:59→22:17)
[2018-03-19] MEDS: POTASSIUM CHLORIDE 10 MEQ TABLET.SA PO SCH ×2 (07:39→17:38)
[2018-03-19] MEDS: HYDROCHLOROTHIAZIDE 25 MG TABLET PO SCH (07:39)
[2018-03-19] MEDS: TRAMADOL HCL 50 MG TABLET PO PRN ×3 (09:17→21:33)
[2018-03-19] MEDS: ASCORBIC ACID 500 MG TABLET PO SCH ×2 (09:55→17:38)
[2018-03-19] MEDS: FERROUS SULFATE 325 MG TABLET PO SCH ×2 (09:56→17:39)
[2018-03-19] MEDS: BUPROPION HCL 75 MG TABLET PO SCH ×2 (09:57→21:32)
[2018-03-19 10:41] LABS: ARTERIAL BLOOD BASE EXCESS 0.8 mmol/L; ARTERIAL BLOOD H2CO3 1.03 mmol/L (1.05-1.35); ARTERIAL BLOOD HCO3 24.1 mmol/L (20-26); ARTERIAL BLOOD O2 SATURATION 94.9 % (94-98); ARTERIAL BLOOD PCO2 34.1 mmHg (35-45); ARTERIAL BLOOD PH 7.47 (7.35-7.45); ARTERIAL BLOOD PO2 68.9 mmHg (80-100); ARTERIAL BLOOD TOTAL CO2 25.2 mmol/L (21-25)
[2018-03-19 10:45] LABS: ARTERIAL BLOOD FIO2 3L
--- NOTE | 2018-03-19 11:21 | RADIOLOGY REPORT (SQ) ---
EXAM DESCRIPTION: CHEST SINGLE VIEW COMPLETED DATE/TIME: 03/19/2018 11:13 am REASON FOR STUDY: to compare to previous CXR- COUGH,SOB COMPARISON: 03/16/2018. EXAM PARAMETERS: NUMBER OF VIEWS: One view. TECHNIQUE: Single frontal radiographic view of the chest acquired. RADIATION DOSE: NA LIMITATIONS: None. FINDINGS: LUNGS AND PLEURA: Extensive bilateral airspace opacities with some improvement. No large pleural effusion. No pneumothorax. MEDIASTINUM AND HILAR STRUCTURES: No masses. Contour normal. HEART AND VASCULAR STRUCTURES: Heart normal in size. Normal vasculature. BONES: No acute findings. HARDWARE: None in the chest. OTHER: No other significant finding. IMPRESSION: EXTENSIVE BILATERAL AIRSPACE DISEASE WHICH HAS IMPROVED SINCE THE PRIOR STUDY. TECHNICAL DOCUMENTATION: JOB ID: [id number] [employer]- All Rights Reserved Reading location - IP/workstation name: [facility]
--- NOTE | 2018-03-19 12:41 | PDOC PROGRESS REPORT ---
Subjective Progress Note for:: 03/19/18 Subjective:: Lying in bed at about 60 on 4 L per nasal cannula. Continues to look more oriented, and be more conversational. Reason For Visit: LEFT HIP FRACTURE,ALCOHOL INTOXICATION Physical Exam Vital Signs: Temp Pulse Resp BP Pulse Ox 97.2 F 68 18 92/49 L 95 03/19/18 07:28 03/19/18 08:19 03/19/18 08:19 03/19/18 07:28 03/19/18 12:00 Pulse Oximeter Continuous Start: 03/16/18 09: 05 Freq: RTQ4 Status: Active Document 03/19/18 12:00 TPO (Rec: 03/19/18 12:02 TPO [email or web address]) Pulse Oximetry Assessment Oxygen Saturation (92-100) 95 Oxygen Flow Rate (L/min) 3 Oxygen Delivery Method Nasal Cannula Fraction of Inspired Oxygen (FIO2) 32 Equipment Usage Equipment in Use Continuous SpO2 Machine # 13 Intake & Output 03/18/18 03/19/18 03/20/18 06:59 06:59 06:59 Intake Total 1864 3032 Output Total 1999 Balance -136 -693 Weight 68.7 kg 71.8 kg General appearance: PRESENT: no acute distress, cooperative Respiratory exam: PRESENT: clear to auscultation mariana, decreased breath sounds, prolonged expiratory phas Cardiovascular exam: PRESENT: RRR GI/Abdominal exam: PRESENT: soft Extremities exam: PRESENT: other - No edema Neurological exam: PRESENT: alert Psychiatric exam: PRESENT: appropriate affect Skin exam: PRESENT: warm Results Laboratory Results: 03/16/18 16:37 03/17/18 05:56 03/19/18 10:10 Carbonic Acid 1.03 L HCO3/H2CO3 Ratio 23:1 ABG pH 7.47 H ABG pCO2 34.1 L ABG pO2 68.9 L ABG HCO3 24.1 ABG O2 Saturation 94.9 ABG Base Excess 0.8 FiO2 3L 03/13/18 18:50 Blood Blood Culture - Final NO GROWTH IN 5 DAYS 03/13/18 17:55 Blood Blood Culture - Final NO GROWTH IN 5 DAYS Impressions: Pelvis X-Ray 03/08/18 07:16 IMPRESSION: Acute left proximal femoral intertrochanteric fracture. Femur X-Ray 03/08/18 07:17 IMPRESSION: Acute left proximal femoral intertrochanteric fracture with moderate varus angulation Fluoroscopy 03/09/18 00:00 IMPRESSION: IMAGE(S) OBTAINED DURING PROCEDURE. Hip X-Ray 03/09/18 00:00 IMPRESSION: IMAGE(S) OBTAINED DURING PROCEDURE. Head CT 03/10/18 00:00 IMPRESSION: No acute intracranial changes. Frontal ethmoid and sphenoid sinusitis EVIDENCE OF ACUTE STROKE: No Chest CT 03/15/18 00:00 IMPRESSION: Multicentric pneumonia. Chest X-Ray 03/19/18 00:00 IMPRESSION: EXTENSIVE BILATERAL AIRSPACE DISEASE WHICH HAS IMPROVED SINCE THE PRIOR STUDY. Assessment & Plan - Diagnosis (1) Acute respiratory failure Qualifiers: Respiratory failure complication: hypoxia and hypercapnia Qualified Code(s) : J96.01 - Acute respiratory failure with hypoxia; J96.02 - Acute respiratory failure with hypercapnia; J96.02 - Acute respiratory failure with hypercapnia; J96.02 - Acute respiratory failure with hypercapnia Is this a current diagnosis for this admission?: Yes Plan: Chest x-ray looks better, but clinically she looks about the same. Still unclear to me what precipitated this. This is day 5 of antibiotics, and day 3 of steroids. Change her steroids to oral, but otherwise continue present treatment. (2) Encephalopathy acute Is this a current diagnosis for this admission?: Yes Plan: Sedating medications were held. Considerably improved today. Continue current pain and anxiolytic medications. She continues to have vague complaints of pain. States she cannot tell me what hurts, but needs something for pain. Continue very cautious use of sedating medications. (3) Alcohol abuse Is this a current diagnosis for this admission?: Yes Plan: Unclear severity and duration. Daughter states that she was not a heavy drinker (4) Depression with anxiety Is this a current diagnosis for this admission?: Yes Plan: Continue home medication (5) Fracture, intertrochanteric, left femur Qualifiers: Fracture type: closed Fracture healing: with routine healing Is this a current diagnosis for this admission?: Yes Plan: Per orthopedics. Appears to be healing well. To rehab when her pulmonary status is stable. (6) Thrombocytopenia Is this a current diagnosis for this admission?: Yes Plan: Resolved. (7) Iron deficiency anemia Is this a current diagnosis for this admission?: Yes Plan: Iron replacement instituted -continue.
--- NOTE | 2018-03-19 14:21 | PDOC PROGRESS REPORT ---
Subjective Progress Note for:: 03/19/18 Subjective:: 62-year-old white female today status post open reduction internal fixation IM nail placement for left femoral fracture. Patient sitting upright in hospital bed with nebulizer mask over nose and mouth. Patient is much more lively and responsive to questioning this afternoon versus exams completed previously. She is pleased reports she has worked with physical therapy and has transferred from bed to chair at the bedside to bedside commode and completed walking roughly 10 steps. I commend patient on this progress. She denies tingling or numbness presently she is concerned for bruising and possible induration along medial aspect of left thigh. Reason For Visit: LEFT HIP FRACTURE,ALCOHOL INTOXICATION Physical Exam Vital Signs: Temp Pulse Resp BP Pulse Ox 36.4 C 66 20 101/59 L 95 03/19/18 12:07 03/19/18 14:00 03/19/18 14:00 03/19/18 12:07 03/19/18 14:00 Pulse Oximeter Continuous Start: 03/16/18 09: 05 Freq: RTQ4 Status: Active Document 03/19/18 12:00 TPO (Rec: 03/19/18 12:02 TPO [email or web address]) Pulse Oximetry Assessment Oxygen Saturation (92-100) 95 Oxygen Flow Rate (L/min) 3 Oxygen Delivery Method Nasal Cannula Fraction of Inspired Oxygen (FIO2) 32 Equipment Usage Equipment in Use Continuous SpO2 Machine # 13 Intake & Output 03/18/18 03/19/18 03/20/18 06:59 06:59 06:59 Intake Total 4317 3032 118 Output Total 5607 0193 6673 [facility] -837 -4940 Weight 68.7 kg 71.8 kg General appearance: PRESENT: no acute distress, well-developed, well-nourished Head exam: PRESENT: atraumatic, normocephalic Additional comments: Nebulizer mask placed over nose and mouth Additional comments: Patient sitting upright in hospital bed with bilateral lower extremities in full extension. Left lower extremity elevated on multiple pillows. Postoperative dressing clean dry and intact. This is left in place. Appropriate passive range of motion including flexion extension, internal/ external rotation, abduction, adduction. Some pain noted on active range of flexion extension. Patient shows progress as she can now lift left lower extremity off the surface of the bed and hold it for roughly 3 seconds. There is evidence of significant ecchymosis along left lateral and medial thigh. No induration or tenderness to palpation noted. Moderate pedal and lower extremity edema. Calves nontender to palpation negative Homans sign. +2 dorsalis pedis pulse, less than 2 seconds capillary refill to left lower extremity. No sensory or motor deficits at this time. Musculoskeletal exam: PRESENT: ambulatory Additional comments: Patient's pulmonary status is now stable for her to work with physical therapy. She has made progress ambulating roughly 8-10 steps. She requires help with transfers from bed to chair at the bedside and to bedside commode however she has completed these tasks. This is great improvement from her nonambulatory status previously. She will continue to work with physical therapy to improve strength range of motion of left lower extremity and work towards independent ambulation. Neurological exam: PRESENT: alert, awake, oriented to person, oriented to place , oriented to time, oriented to situation, CN II-XII grossly intact. ABSENT: motor sensory deficit Psychiatric exam: PRESENT: appropriate affect, normal mood. ABSENT: homicidal ideation, suicidal ideation Results Laboratory Results: 03/16/18 16:37 03/17/18 05:56 03/19/18 10:10 Carbonic Acid 1.03 L HCO3/H2CO3 Ratio 23:1 ABG pH 7.47 H ABG pCO2 34.1 L ABG pO2 68.9 L ABG HCO3 24.1 ABG O2 Saturation 94.9 ABG Base Excess 0.8 FiO2 3L 03/18/18 16:00 Sputum Gram Stain - Final 03/13/18 18:50 Blood Blood Culture - Final NO GROWTH IN 5 DAYS 03/13/18 17:55 Blood Blood Culture - Final NO GROWTH IN 5 DAYS Impressions: Pelvis X-Ray 03/08/18 07:16 IMPRESSION: Acute left proximal femoral intertrochanteric fracture. Femur X-Ray 03/08/18 07:17 IMPRESSION: Acute left proximal femoral intertrochanteric fracture with moderate varus angulation Fluoroscopy 03/09/18 00:00 IMPRESSION: IMAGE(S) OBTAINED DURING PROCEDURE. Hip X-Ray 03/09/18 00:00 IMPRESSION: IMAGE(S) OBTAINED DURING PROCEDURE. Head CT 03/10/18 00:00 IMPRESSION: No acute intracranial changes. Frontal ethmoid and sphenoid sinusitis EVIDENCE OF ACUTE STROKE: No Chest CT 03/15/18 00:00 IMPRESSION: Multicentric pneumonia. Chest X-Ray 03/19/18 00:00 IMPRESSION: EXTENSIVE BILATERAL AIRSPACE DISEASE WHICH HAS IMPROVED SINCE THE PRIOR STUDY. Assessment & Plan - Diagnosis (1) Fracture, intertrochanteric, left femur Qualifiers: Fracture type: closed Fracture healing: with routine healing Is this a current diagnosis for this admission?: Yes - Plan Summary Plan Summary: 62-year-old white female 10 days status post open reduction internal fixation left proximal femoral fracture. Patient previously had pulmonary comp occasions with pulmonary edema, fluid overload and ARDS. Per hospitalist and respiratory therapy, patient's pulmonary status has improved greatly. She continues antibiotics and has now been placed on p.o. steroid regiment. Respiratory therapy and hospitalist service will continue to follow and manage. From an orthopedic standpoint, she is doing relatively well postoperatively. Postoperative edema and ecchymosis still present, however no concern for infection at this time. If patient still remains in the hospital at 2 week postoperative caleb, postoperative dressing will likely be removed as well as erlin if present. Patient has now made great progress with physical therapy as pulmonary status is now stable for her to begin ambulation. She has completed roughly 10 steps of ambulation and needs assistance with transfers. She will continue to work with physical therapy throughout her stay in the hospital and upon discharge to improve strength range of motion and work towards independent ambulation on left lower extremity. [facility] once hospitalist service and respiratory therapy see fit.
[2018-03-19] MEDS: CITALOPRAM HYDROBROMIDE 20 MG TABLET PO SCH (21:32)
[2018-03-19] MEDS: TOPIRAMATE 100 MG TABLET PO SCH (21:33)
[2018-03-19 21:47] LABS: ABSOLUTE EOSINOPHILS # (AUTO) 0.2 10^3/uL (0.0-0.6); ABSOLUTE LYMPHOCYTES (AUTO) 1.4 10^3/uL (0.5-4.7); ABSOLUTE MONOCYTES (AUTO) 0.9 10^3/uL (0.1-1.4); ABSOLUTE NEUT (AUTO) 8.9 10^3/uL (1.7-8.2); BASOPHILS % (AUTO) 0.4 % (0-2); EOSINOPHILS % (AUTO) 1.5 % (0-6); HEMATOCRIT 27.2 % (36.0-47.0); LYMPHOCYTES % (AUTO) 12.2 % (13-45); MEAN CORPUSCULAR HEMOGLOBIN 31.6 pg (27.0-33.4); MEAN CORPUSCULAR HGB CONC 33.1 g/dL (32.0-36.0); MEAN CORPUSCULAR VOLUME 96 fl (80-97); MONOCYTES % (AUTO) 8.2 % (3-13); PLATELET COUNT 214 10^3/uL (150-450); RED BLOOD COUNT 2.84 10^6/uL (3.72-5.28); SEGMENTED NEUTROPHILS % (AUTO) 77.7 % (42-78); TOTAL CELLS COUNTED % (AUTO) 100 %; WHITE BLOOD COUNT 11.4 10^3/uL (4.0-10.5)
[2018-03-20] MEDS: LEVALBUTEROL HCL NEB 1.25 MG/3 ML AMPUL NEB SCH ×4 (02:12→20:48)
[2018-03-20] MEDS: VANCOMYCIN HCL 1,000 MG in NORMAL SALINE 250 ML IV SCH (02:49)
[2018-03-20] MEDS: LANSOPRAZOLE 30 MG TAB.RAP.DR PO SCH (06:22)
[2018-03-20] MEDS: CEFEPIME HCL 2 GM in DEXTROSE 5%-WATER 50 ML IV SCH ×2 (06:22→17:45)
[2018-03-20] MEDS: HEPARIN SOD (PORCINE) 5,000 UNIT/ML 1 ML SYRINGE SUBCUT SCH ×3 (06:22→22:23)
[2018-03-20 06:31] LABS: ABSOLUTE EOSINOPHILS # (AUTO) 0.3 10^3/uL (0.0-0.6); ABSOLUTE LYMPHOCYTES (AUTO) 1.1 10^3/uL (0.5-4.7); ABSOLUTE MONOCYTES (AUTO) 0.8 10^3/uL (0.1-1.4); ABSOLUTE NEUT (AUTO) 7.5 10^3/uL (1.7-8.2); BASOPHILS % (AUTO) 0.4 % (0-2); EOSINOPHILS % (AUTO) 2.7 % (0-6); HEMATOCRIT 28.3 % (36.0-47.0); HEMOGLOBIN 9.5 g/dL (12.0-15.5); LYMPHOCYTES % (AUTO) 11.5 % (13-45); MEAN CORPUSCULAR HGB CONC 33.6 g/dL (32.0-36.0); MEAN CORPUSCULAR VOLUME 95 fl (80-97); MONOCYTES % (AUTO) 8.5 % (3-13); PLATELET COUNT 191 10^3/uL (150-450); RED BLOOD COUNT 2.96 10^6/uL (3.72-5.28); RED CELL DISTRIBUTION WIDTH 14.2 % (11.5-14.0); SEGMENTED NEUTROPHILS % (AUTO) 76.9 % (42-78); TOTAL CELLS COUNTED % (AUTO) 100 %; WHITE BLOOD COUNT 9.7 10^3/uL (4.0-10.5)
[2018-03-20 06:55] LABS: ALBUMIN 2.4 g/dL (3.5-5.0); ANION GAP 8 (5-19); BLOOD UREA NITROGEN 10 mg/dL (7-20); CALCIUM 8.1 mg/dL (8.4-10.2); CARBON DIOXIDE 28 mmol/L (22-30); CHLORIDE 103 mmol/L (98-107); GLUCOSE 89 mg/dL (75-110); PHOSPHORUS 3.1 mg/dL (2.5-4.5); POTASSIUM 3.8 mmol/L (3.6-5.0); SODIUM 138.7 mmol/L (137-145)
[2018-03-20] MEDS: POTASSIUM CHLORIDE 10 MEQ TABLET.SA PO SCH ×2 (08:39→15:17)
[2018-03-20] MEDS: ASCORBIC ACID 500 MG TABLET PO SCH ×2 (08:39→17:46)
[2018-03-20] MEDS: HYDROCHLOROTHIAZIDE 25 MG TABLET PO SCH (08:39)
[2018-03-20] MEDS: FERROUS SULFATE 325 MG TABLET PO SCH ×2 (08:40→17:46)
[2018-03-20] MEDS ORDERED: PREDNISONE 20 MG TABLET PO SCH (10:00)
[2018-03-20] MEDS: VANCOMYCIN HCL 1,000 MG in DEXTROSE 5%-WATER 250 ML IV SCH ×2 (10:41→18:24)
[2018-03-20] MEDS: BUPROPION HCL 75 MG TABLET PO SCH ×2 (10:42→22:24)
[2018-03-20] MEDS: TRAMADOL HCL 50 MG TABLET PO PRN ×2 (10:45→17:48)
--- NOTE | 2018-03-20 13:25 | PDOC PROGRESS REPORT ---
Subjective Progress Note for:: 03/20/18 Subjective:: More somnolent today, but fully oriented. No specific complaints, but states she does not feel well. Was up to the chair for 2 hours yesterday. This is the first time she been out of bed since admission. Reason For Visit: LEFT HIP FRACTURE,ALCOHOL INTOXICATION Physical Exam Vital Signs: Temp Pulse Resp BP Pulse Ox 99.3 F 82 24 H 111/56 L 93 03/20/18 12:47 03/20/18 12:47 03/20/18 12:47 03/20/18 12:47 03/20/18 12:47 Pulse Oximeter Continuous Start: 03/16/18 09: 05 Freq: RTQ4 Status: Active Document 03/20/18 12:00 [facility] (Rec: 03/20/18 12:30 CWH [email or web address]) Pulse Oximetry Assessment Oxygen Saturation (92-100) 92 Oxygen Flow Rate (L/min) 4 Oxygen Delivery Method Nasal Cannula Equipment Usage Equipment in Use Continuous SpO2 Machine # 13 Intake & Output 03/19/18 03/20/18 03/21/18 06:59 06:59 06:59 Intake Total 3032 2485 Output Total 9317 5439 Balance -305 -7180 Weight 71.8 kg 67.6 kg General appearance: PRESENT: no acute distress Exam: Appears considerably older than her chronologic age Respiratory exam: PRESENT: clear to auscultation mariana Cardiovascular exam: PRESENT: RRR GI/Abdominal exam: PRESENT: soft Neurological exam: PRESENT: oriented to person, oriented to place, oriented to time, oriented to situation, other - Somnolent. Tends to drift off to sleep in the middle of the conversation Psychiatric exam: PRESENT: flat affect Skin exam: PRESENT: warm Results Laboratory Results: 03/20/18 06:02 03/20/18 06:02 03/19/18 03/20/18 03/20/18 21:25 06:02 06:02 WBC 11.4 H 9.7 RBC 2.84 L 2.96 L Hgb 9.0 L 9.5 L Hct 27.2 L 28.3 L MCV 96 95 MCH 31.6 32.0 MCHC 33.1 33.6 RDW 14.0 14.2 H Plt Count 214 191 Seg Neutrophils % 77.7 76.9 Lymphocytes % 12.2 L 11.5 L Monocytes % 8.2 8.5 Eosinophils % 1.5 2.7 Basophils % 0.4 0.4 Absolute Neutrophils 8.9 H 7.5 Absolute Lymphocytes 1.4 1.1 Absolute Monocytes 0.9 0.8 Absolute Eosinophils 0.2 0.3 Absolute Basophils 0.0 0.0 Sodium 138.7 Potassium 3.8 Chloride 103 Carbon Dioxide 28 Anion Gap 8 BUN 10 Creatinine 0.51 L Est GFR ( Amer) > 60 Est GFR (Non-Af Amer) > 60 Glucose 89 Calcium 8.1 L Phosphorus 3.1 Magnesium 1.9 Albumin 2.4 L 03/18/18 16:00 Sputum Gram Stain - Final 03/18/18 16:00 Sputum Sputum Culture - Final Mrsa (Meth Resis Staph Aureus) Yeast, Not Amarilis Albicans Normal Cindy Absent Impressions: Pelvis X-Ray 03/08/18 07:16 IMPRESSION: Acute left proximal femoral intertrochanteric fracture. Femur X-Ray 03/08/18 07:17 IMPRESSION: Acute left proximal femoral intertrochanteric fracture with moderate varus angulation Fluoroscopy 03/09/18 00:00 IMPRESSION: IMAGE(S) OBTAINED DURING PROCEDURE. Hip X-Ray 03/09/18 00:00 IMPRESSION: IMAGE(S) OBTAINED DURING PROCEDURE. Head CT 03/10/18 00:00 IMPRESSION: No acute intracranial changes. Frontal ethmoid and sphenoid sinusitis EVIDENCE OF ACUTE STROKE: No Chest CT 03/15/18 00:00 IMPRESSION: Multicentric pneumonia. Chest X-Ray 03/19/18 00:00 IMPRESSION: EXTENSIVE BILATERAL AIRSPACE DISEASE WHICH HAS IMPROVED SINCE THE PRIOR STUDY. Assessment & Plan - Diagnosis (1) Acute respiratory failure Qualifiers: Respiratory failure complication: hypoxia and hypercapnia Qualified Code(s) : J96.01 - Acute respiratory failure with hypoxia; J96.02 - Acute respiratory failure with hypercapnia; J96.02 - Acute respiratory failure with hypercapnia; J96.02 - Acute respiratory failure with hypercapnia Is this a current diagnosis for this admission?: Yes Plan: Chest x-ray most consistent with ARDS, though I can see nothing that would have been an inciting event. Chest x-ray yesterday was improved. Back on 4 L again today. Continue present management and watch closely. Pulmonology following (2) Encephalopathy acute Is this a current diagnosis for this admission?: Yes Plan: Improved in terms of orientation, but very lethargic today. Possibly due to her exertions yesterday. Her last sedative was Valium at 930 last night (3) Alcohol abuse Is this a current diagnosis for this admission?: Yes Plan: Unclear severity and duration. Daughter states that she was not a heavy drinker (4) Depression with anxiety Is this a current diagnosis for this admission?: Yes Plan: Continue home medication (5) Fracture, intertrochanteric, left femur Qualifiers: Fracture type: closed Fracture healing: with routine healing Is this a current diagnosis for this admission?: Yes Plan: Per orthopedics. Appears to be healing well. To rehab when her pulmonary status is stable. (6) Thrombocytopenia Is this a current diagnosis for this admission?: Yes Plan: Resolved (7) Iron deficiency anemia Is this a current diagnosis for this admission?: Yes Plan: Iron replacement instituted -continue.
[2018-03-20] MEDS ORDERED: METHYLPREDNISOLONE INJ 40 MG/1 ML SDV IV ONE (15:00)
[2018-03-20] MEDS: DIAZEPAM 2 MG TABLET PO PRN (15:25)
[2018-03-20] MEDS: TOPIRAMATE 100 MG TABLET PO SCH (22:24)
[2018-03-20] MEDS: METHYLPREDNISOLONE INJ 40 MG/1 ML SDV IV SCH (22:24)
[2018-03-20] MEDS: CITALOPRAM HYDROBROMIDE 20 MG TABLET PO SCH (22:24)
[2018-03-21] MEDS: DIAZEPAM 2 MG TABLET PO PRN ×4 (02:18→23:45)
[2018-03-21] MEDS: TRAMADOL HCL 50 MG TABLET PO PRN ×4 (02:18→23:45)
[2018-03-21] MEDS: VANCOMYCIN HCL 1,000 MG in DEXTROSE 5%-WATER 250 ML IV SCH ×3 (02:18→17:41)
[2018-03-21] MEDS: LEVALBUTEROL HCL NEB 1.25 MG/3 ML AMPUL NEB SCH ×4 (02:26→20:24)
[2018-03-21] MEDS: METHYLPREDNISOLONE INJ 40 MG/1 ML SDV IV SCH ×3 (06:22→22:40)
[2018-03-21] MEDS: HEPARIN SOD (PORCINE) 5,000 UNIT/ML 1 ML SYRINGE SUBCUT SCH ×2 (06:22→13:13)
[2018-03-21] MEDS: CEFEPIME HCL 2 GM in DEXTROSE 5%-WATER 50 ML IV SCH (06:22)
[2018-03-21] MEDS: LANSOPRAZOLE 30 MG TAB.RAP.DR PO SCH (06:22)
[2018-03-21] MEDS: HYDROCHLOROTHIAZIDE 25 MG TABLET PO SCH (07:55)
[2018-03-21] MEDS: POTASSIUM CHLORIDE 10 MEQ TABLET.SA PO SCH ×2 (07:55→15:22)
[2018-03-21] MEDS: FERROUS SULFATE 325 MG TABLET PO SCH ×2 (09:03→17:40)
[2018-03-21] MEDS: ASCORBIC ACID 500 MG TABLET PO SCH ×2 (09:03→17:40)
[2018-03-21] MEDS: BUPROPION HCL 75 MG TABLET PO SCH ×2 (09:03→22:40)
[2018-03-21] MEDS ORDERED: BISACODYL 10 MG SUPP.RECT PR PRN (13:36)
--- NOTE | 2018-03-21 13:59 | PDOC PROGRESS REPORT ---
Subjective Progress Note for:: 03/21/18 Subjective:: 62-year-old female with history of Hypertension COPD Migraines Tremors Depression Generalized anxiety disorder Hepatitis C Tobacco dependence Alcohol dependence She was admitted to this hospital on March 08 with confusion and left hip fracture. [place] she was found to have an elevated blood alcohol level, hypernatremia, dehydration Patient underwent surgery for her left comminuted intertrochanteric hip fracture with nailing on March 09. Plan is for acute rehab in [place]. On March 13 the patient developed acute respiratory distress and hypoxia which was felt to be secondary to pulmonary edema and volume overload. She was started on antibiotics and diuretics put on BiPAP and transferred to the intensive care unit. CT scan of the chest done on March 15 suggestive of ARDS. She was continued on antibiotics. Steroids were added. Chest x-ray from March 19 shows an improvement. Echocardiogram done on March 15 showed normal left ventricular ejection fraction with borderline concentric left ventricular hypertrophy. Mild to moderate diastolic dysfunction. Weighted right ventricular systolic pressure at 30-40 mmHg. No significant valvular abnormalities. This morning when I saw her she was sitting by the side of the bed working with physical therapy. On 3 L by nasal cannula her sats dropped down into the low 80s with mild exertion. Not had a bowel movement since 5 days. Daughter is at the bedside and plan of care was discussed. Reason For Visit: LEFT HIP FRACTURE,ALCOHOL INTOXICATION Physical Exam Vital Signs: Temp Pulse Resp BP Pulse Ox 97.7 F 71 24 H 92/50 L 93 03/21/18 12:17 03/21/18 12:17 03/21/18 12:17 03/21/18 12:17 03/21/18 12:17 Pulse Oximeter Continuous Start: 03/16/18 09: 05 Freq: RTQ4 Status: Active Document 03/21/18 12:00 [facility] (Rec: 03/21/18 13:20 [facility] [email or web address]) Pulse Oximetry Assessment Oxygen Saturation (92-100) 93 Oxygen Flow Rate (L/min) 3 Oxygen Delivery Method Nasal Cannula Equipment Usage Equipment in Use Continuous SpO2 Machine # 13 Intake & Output 03/20/18 03/21/18 03/22/18 06:59 06:59 06:59 Intake Total 9485 1131 Output Total 4052 9150 Balance -9679 -0803 Weight 67.6 kg 66.8 kg General appearance: PRESENT: mild distress, thin Head exam: PRESENT: normocephalic Eye exam: ABSENT: scleral icterus Ear exam: PRESENT: normal external ear exam Mouth exam: PRESENT: moist Respiratory exam: PRESENT: crackles, rhonchi, symmetrical Cardiovascular exam: PRESENT: RRR GI/Abdominal exam: PRESENT: normal bowel sounds, soft. ABSENT: tenderness Rectal exam: PRESENT: deferred Extremities exam: ABSENT: pedal edema Neurological exam: PRESENT: alert, awake, oriented to person Psychiatric exam: PRESENT: appropriate affect Skin exam: ABSENT: rash Results Laboratory Results: 03/20/18 06:02 03/20/18 06:02 Impressions: Pelvis X-Ray 03/08/18 07:16 IMPRESSION: Acute left proximal femoral intertrochanteric fracture. Femur X-Ray 03/08/18 07:17 IMPRESSION: Acute left proximal femoral intertrochanteric fracture with moderate varus angulation Fluoroscopy 03/09/18 00:00 IMPRESSION: IMAGE(S) OBTAINED DURING PROCEDURE. Hip X-Ray 03/09/18 00:00 IMPRESSION: IMAGE(S) OBTAINED DURING PROCEDURE. Head CT 03/10/18 00:00 IMPRESSION: No acute intracranial changes. Frontal ethmoid and sphenoid sinusitis EVIDENCE OF ACUTE STROKE: No Chest CT 03/15/18 00:00 IMPRESSION: Multicentric pneumonia. Chest X-Ray 03/19/18 00:00 IMPRESSION: EXTENSIVE BILATERAL AIRSPACE DISEASE WHICH HAS IMPROVED SINCE THE PRIOR STUDY. Assessment & Plan - Diagnosis (1) Acute respiratory failure with hypoxia Is this a current diagnosis for this admission?: Yes Plan: Due to ARDS. Day 8 of antibiotics. Would complete a 10 day course. Respiratory status and oxygen requirement slowly improving. Continue IV steroids. Continue nebulizers. (2) ARDS (adult respiratory distress syndrome) Is this a current diagnosis for this admission?: Yes Plan: As above (3) Depression with anxiety Is this a current diagnosis for this admission?: Yes Plan: Celexa, Wellbutrin, Topamax. Valium as needed. Avoid oversedation. (4) Fall Qualifiers: Encounter type: sequela Qualified Code(s): W19.XXXS - Unspecified fall, sequela Is this a current diagnosis for this admission?: Yes Plan: Fall precautions. Physical therapy. (5) Fracture, intertrochanteric, left femur Qualifiers: Fracture type: closed Fracture healing: with routine healing Is this a current diagnosis for this admission?: Yes Plan: Continue pain control and physical therapy as tolerated. Discharge to rehab once stable. (6) Iron deficiency anemia Is this a current diagnosis for this admission?: Yes Plan: Iron supplementation. (7) Thrombocytopenia Is this a current diagnosis for this admission?: Yes Plan: Resolved, may have been secondary to ETOH. (8) DVT prophylaxis Is this a current diagnosis for this admission?: Yes Plan: Lovenox (9) Alcohol dependence Is this a current diagnosis for this admission?: Yes Plan: valium prn. Thiamine 10mmg daily (10) Tobacco dependence Is this a current diagnosis for this admission?: Yes Plan: Nicotine patch prn (11) Constipation Is this a current diagnosis for this admission?: Yes Plan: laxatives and stool softeners (12) Hypomagnesemia Is this a current diagnosis for this admission?: Yes Plan: Repleted, continue to monitor (13) Hypokalemia Is this a current diagnosis for this admission?: Yes Plan: Repleted, continue to monitor
[2018-03-21 14:27] LABS: HEMATOCRIT 27.5 % (36.0-47.0); HEMOGLOBIN 9.3 g/dL (12.0-15.5); MEAN CORPUSCULAR VOLUME 94 fl (80-97); PLATELET COUNT 205 10^3/uL (150-450); RED BLOOD COUNT 2.92 10^6/uL (3.72-5.28); RED CELL DISTRIBUTION WIDTH 14.1 % (11.5-14.0); WHITE BLOOD COUNT 13.2 10^3/uL (4.0-10.5)
[2018-03-21 14:33] LABS: INTERNATIONAL RATION (INR) 1.26; PROTHROMBIN TIME 16.4 SEC (11.4-15.4)
[2018-03-21 14:34] LABS: PARTIAL THROMBOPLASTIN TIME 37.3 SEC (23.5-35.8)
[2018-03-21] MEDS ORDERED: THIAMINE HCL 100 MG TABLET PO ONE (15:30)
[2018-03-21] MEDS ORDERED: DOCUSATE SODIUM 100 MG CAPSULE PO ONE (15:30)
[2018-03-21] MEDS ORDERED: BISACODYL 5 MG TABEC PO ONE (15:30)
[2018-03-21] MEDS: LACTOBACILLUS ACIDOPHILUS 250 MG TAB PO SCH (17:40)
--- NOTE | 2018-03-21 18:03 | PDOC CONSULTATION ---
Consultation Consult Date: 03/17/18 Attending physician:: NEHA HUITRON Consult reason:: diffuse alveolar lung disease History of Present Illness Admission Date/PCP: 03/08/18 11:13 History of Present Illness: YEVGENIY ODONNELL is a 62 year old female Admitted for increasing shortness of breath her history is notable that she spent several weeks in [place] and returned back to [place] in [place] in early February at which time she had a hip replacement she subsequently sent home after several weeks developed increasing shortness of breath highly abnormal CT she admits to shortness of breath as well as dyspnea on exertion with activities of daily living prior to this current illness he has a cough is usually nonproductive she denies hemoptysis her PPD status is unknown she had no history of chronic lung disease as a child or adolescent she admits to exposure large amounts of passive smoke as a child as well as an adult she herself smoked a pack a day for the last 50 years. She worked as a waiter/waitress informal where she again was exposed large amounts of passive smoke. She has no pets recent travel list noted above she denies angina-like chest pain sleeps on 2 pillows occasional PND occasional nocturnal cough no edema she admits to snoring restless sleep nocturia 2-3 times per night unrestful sleep and excessive daytime somnolence. Past Medical History Cardiac Medical History: Reports: Hypertension - meds 15 yrs Denies: Coronary Artery Disease, Myocardial Infarction Pulmonary Medical History: Reports: Pneumonia - walking 1993 Denies: Asthma, Bronchitis, Chronic Obstructive Pulmonary Disease (COPD) Neurological Medical History: Reports: Migraine, Other - Bilateral upper extremity tremor of unknown etiology. Denies: Seizures Endocrine Medical History: Denies: Diabetes Mellitus Type 2 Renal/ Medical History: Denies: Chronic Kidney Disease Malignancy Medical History: Reports: None GI Medical History: Denies: Cirrhosis Musculoskeltal Medical History: Reports: Arthritis - hand/ left numb Skin Medical History: Reports: None Psychiatric Medical History: Reports: Depression, General Anxiety Disorder Hematology: Denies: Anemia Infectious Medical History: Reports: Hepatitis C, Other Past Surgical History Past Surgical History: Reports: Section - x2, Hysterectomy, Other - Cholecystectomy, abdominal wall hernia surgery Social History Information Source: Patient, [facility] Records Lives with: Alone, Other - 1 daughter in [place] and 1 daughter in [place] Smoking Status: Current Every Day Smoker Cigarettes Packs Per Day: 1 Number of Years Smokin Passive smoke exposure as: Both Hx Recreational Drug Use: No Hx Prescription Drug Abuse: No Do you have pets?: No Have you had any respiratory illnesses as a child?: No Have you been exposed to any sick contacts recently?: No Have you had any recent respiratory illnesses?: Yes Have you travelled outside of [place] in the past 12 months?: Yes - Advance Directive Resuscitation Status: Full Code Family History Family History: CAD, COPD, Hyperlipidemia, Malignancy Parental Family History Reviewed: Yes Children Family History Reviewed: Yes Sibling(s) Family History Reviewed.: Yes Medication/Allergy Home Medications: Bupropion HCl [Wellbutrin Xl 150 mg 24hr Tablet] 150 mg PO DAILY 03/08/18 Butalb/Acetaminophen/Caffeine [Fioricet (50-325-40 mg) Tablet] 1 tab PO Q6HP PRN 03/08/18 Citalopram Hydrobromide [Celexa 20 mg Tablet] 20 mg PO QHS 03/08/18 Diazepam [Valium 5 mg Tablet] 5 mg PO DAILYP PRN 03/08/18 Hydrochlorothiazide [Hydrodiuril 25 mg Tablet] 25 mg PO QAM 03/08/18 Rizatriptan Benzoate [Maxalt] 10 mg PO ASDIR PRN 03/08/18 Topiramate [Topamax] 150 mg PO QHS 03/08/18 Allergies/Adverse Reactions: oxycodone [Oxycodone] Adverse Reaction (Severe, Verified 11/06/14 14:33) nausea/vomiting Review of Systems Constitutional: PRESENT: chills, fatigue, night sweats, weakness. ABSENT: fever (s), headache(s) Eyes: ABSENT: visual disturbances Ears: ABSENT: hearing changes Nose, Mouth, and Throat: PRESENT: sore throat Cardiovascular: PRESENT: dyspnea on exertion, orthropnea. ABSENT: palpitations Respiratory: PRESENT: cough. ABSENT: hemoptysis Gastrointestinal: ABSENT: abdominal pain, bloating, coffee ground emesis, dysphagia, heartburn, melena Genitourinary: ABSENT: dysuria, hematuria Musculoskeletal: ABSENT: joint swelling Integumentary: ABSENT: pruritus, rash Neurological: PRESENT: memory loss. ABSENT: abnormal gait, abnormal movements, abnormal speech Psychiatric: ABSENT: hallucinations, homidical ideation, suicidal ideation Endocrine: ABSENT: cold intolerance, heat intolerance Hematologic/Lymphatic: PRESENT: easy bruising Physical Exam Vital Signs: Temp Pulse Resp BP Pulse Ox 99.7 F 80 26 H 106/51 L 93 03/17/18 15:47 03/17/18 15:47 03/17/18 15:47 03/17/18 15:47 03/17/18 15:47 Pulse Oximeter Continuous Start: 03/16/18 09: 05 Freq: RTQ4 Status: Active Document 03/17/18 12:20 [facility] (Rec: 03/17/18 14:46 [facility] [email or web address]) Pulse Oximetry Assessment Oxygen Saturation (92-100) 95 Oxygen Flow Rate (L/min) 3 Oxygen Delivery Method Nasal Cannula Equipment Usage Equipment in Use Continuous SpO2 Machine # 13 Intake & Output 03/16/18 03/17/18 03/18/18 06:59 06:59 06:59 Intake Total 1126 1680 Output Total 4395 4745 Balance -3269 -845 Weight 63.4 kg 65.9 kg General appearance: PRESENT: no acute distress, cooperative, disheveled, well- developed, well-nourished Head exam: PRESENT: normocephalic Eye exam: PRESENT: conjunctiva pale, EOMI. ABSENT: nystagmus, periorbital swelling, scleral icterus Mouth exam: PRESENT: moist, neck supple, tongue midline Neck exam: ABSENT: carotid bruit, JVD, lymphadenopathy, thyromegaly, tracheal deviation, tracheostomy Respiratory exam: PRESENT: decreased breath sounds, prolonged expiratory phas, rales, rhonchi, unlabored. ABSENT: retraction, stridor, tachypnea Cardiovascular exam: PRESENT: RRR, +S1, +S2 Pulses: PRESENT: normal radial pulses GI/Abdominal exam: ABSENT: diminished bowel sounds, soft Extremities exam: PRESENT: other - s/p hip fx. ABSENT: clubbing, full ROM, joint swelling Musculoskeletal exam: ABSENT: ambulatory, deformity, dislocation, full ROM Neurological exam: PRESENT: awake, oriented to person, oriented to place Psychiatric exam: PRESENT: flat affect Skin exam: PRESENT: dry, warm Results Laboratory Results: 03/16/18 16:37 03/17/18 05:56 03/16/18 03/16/18 03/17/18 16:37 16:37 05:03 Carbonic Acid 1.21 HCO3/H2CO3 Ratio 22:1 ABG pH 7.45 ABG pCO2 40.3 ABG pO2 71.5 L ABG HCO3 27.4 H ABG O2 Saturation 95.1 ABG Base Excess 3.2 FiO2 35% Sodium Potassium Chloride Carbon Dioxide Anion Gap BUN Creatinine 0.46 L Est GFR ( Amer) > 60 Est GFR (Non-Af Amer) > 60 Glucose Calcium Phosphorus Magnesium 1.6 Iron 17.1 L Total Bilirubin AST ALT Alkaline Phosphatase Total Protein Albumin 03/17/18 03/17/18 05:56 09:33 Carbonic Acid 1.11 HCO3/H2CO3 Ratio 25:1 ABG pH 7.50 H ABG pCO2 37.0 ABG pO2 60.0 L ABG HCO3 28.1 H ABG O2 Saturation 93.1 L ABG Base Excess 4.9 FiO2 3.5 L Sodium 136.8 L Potassium 3.4 L Chloride 102 Carbon Dioxide 27 Anion Gap 8 BUN 15 Creatinine 0.49 L Est GFR ( Amer) > 60 Est GFR (Non-Af Amer) > 60 Glucose 96 Calcium 7.7 L Phosphorus 2.6 Magnesium Iron Total Bilirubin 1.8 H AST 33 ALT 32 Alkaline Phosphatase 49 Total Protein 4.7 L Albumin 2.3 L Impressions: Pelvis X-Ray 03/08/18 07:16 IMPRESSION: Acute left proximal femoral intertrochanteric fracture. Femur X-Ray 03/08/18 07:17 IMPRESSION: Acute left proximal femoral intertrochanteric fracture with moderate varus angulation Fluoroscopy 03/09/18 00:00 IMPRESSION: IMAGE(S) OBTAINED DURING PROCEDURE. Hip X-Ray 03/09/18 00:00 IMPRESSION: IMAGE(S) OBTAINED DURING PROCEDURE. Head CT 03/10/18 00:00 IMPRESSION: No acute intracranial changes. Frontal ethmoid and sphenoid sinusitis EVIDENCE OF ACUTE STROKE: No Chest CT 03/15/18 00:00 IMPRESSION: Multicentric pneumonia. Chest X-Ray 03/16/18 00:00 IMPRESSION: 1. Interval increase in diffuse bilateral airspace opacity. Assessment & Plan - Diagnosis (1) Acute respiratory failure with hypoxia Is this a current diagnosis for this admission?: Yes Plan: Acute lung injury etiology uncertain suspect this is superimposed on some chronic injury from long-standing history of smoking. Suggest aggressive chest physiotherapy and acetylcysteine nebulizers realized that aggressiveness of the physical therapy will be limited to her recent hip fractureIn. Also suggest follow-up CT scan 4-6 days to follow progression of lesions if patient is not improving we can proceed with fiberoptic bronchoscopy (2) Alcohol use Is this a current diagnosis for this admission?: Yes (3) Depression with anxiety Is this a current diagnosis for this admission?: Yes (4) Hypertension Is this a current diagnosis for this admission?: Yes (5) Tobacco dependence Is this a current diagnosis for this admission?: Yes Plan: Discussed at length risk and dangers associated with continued tobacco use
[2018-03-21] MEDS: SENNOSIDES/DOCUSATE 8.6-50 MG 1 EACH TABLET PO SCH (22:40)
[2018-03-21] MEDS: TOPIRAMATE 100 MG TABLET PO SCH (22:40)
[2018-03-21] MEDS: CITALOPRAM HYDROBROMIDE 20 MG TABLET PO SCH (22:40)
[2018-03-22] MEDS: VANCOMYCIN HCL 1,000 MG in DEXTROSE 5%-WATER 250 ML IV SCH ×2 (02:21→09:38)
[2018-03-22] MEDS: LEVALBUTEROL HCL NEB 1.25 MG/3 ML AMPUL NEB SCH ×4 (02:44→21:27)
[2018-03-22] MEDS: METHYLPREDNISOLONE INJ 40 MG/1 ML SDV IV SCH ×2 (06:46→21:46)
[2018-03-22] MEDS: LANSOPRAZOLE 30 MG TAB.RAP.DR PO SCH (06:46)
[2018-03-22 06:51] LABS: ARTERIAL BLOOD BASE EXCESS -0.7 mmol/L; ARTERIAL BLOOD H2CO3 1.06 mmol/L (1.05-1.35); ARTERIAL BLOOD HCO3 23.2 mmol/L (20-26); ARTERIAL BLOOD O2 SATURATION 97.1 % (94-98); ARTERIAL BLOOD PCO2 35.2 mmHg (35-45); ARTERIAL BLOOD PH 7.44 (7.35-7.45); ARTERIAL BLOOD PO2 88.8 mmHg (80-100); ARTERIAL BLOOD TOTAL CO2 24.2 mmol/L (21-25)
[2018-03-22 06:52] LABS: ARTERIAL BLOOD FIO2 2L
[2018-03-22] MEDS: DIAZEPAM 2 MG TABLET PO PRN ×3 (06:54→21:54)
[2018-03-22] MEDS: TRAMADOL HCL 50 MG TABLET PO PRN ×2 (06:55→15:33)
[2018-03-22 07:15] LABS: ABSOLUTE EOSINOPHILS # (AUTO) 0.1 10^3/uL (0.0-0.6); ABSOLUTE MONOCYTES (AUTO) 0.9 10^3/uL (0.1-1.4); ABSOLUTE NEUT (AUTO) 10.8 10^3/uL (1.7-8.2); BASOPHILS % (AUTO) 0.4 % (0-2); EOSINOPHILS % (AUTO) 0.6 % (0-6); HEMATOCRIT 26.5 % (36.0-47.0); HEMOGLOBIN 8.9 g/dL (12.0-15.5); MEAN CORPUSCULAR HEMOGLOBIN 31.6 pg (27.0-33.4); MEAN CORPUSCULAR HGB CONC 33.6 g/dL (32.0-36.0); MEAN CORPUSCULAR VOLUME 94 fl (80-97); PLATELET COUNT 254 10^3/uL (150-450); RED BLOOD COUNT 2.81 10^6/uL (3.72-5.28); RED CELL DISTRIBUTION WIDTH 14.1 % (11.5-14.0); TOTAL CELLS COUNTED % (AUTO) 100 %; WHITE BLOOD COUNT 12.8 10^3/uL (4.0-10.5)
[2018-03-22 07:22] LABS: PROTHROMBIN TIME 15.9 SEC (11.4-15.4)
[2018-03-22 07:23] LABS: PARTIAL THROMBOPLASTIN TIME 33.6 SEC (23.5-35.8)
[2018-03-22 07:49] LABS: ANION GAP 11 (5-19); BLOOD UREA NITROGEN 11 mg/dL (7-20); CALCIUM 8.5 mg/dL (8.4-10.2); CARBON DIOXIDE 24 mmol/L (22-30); CHLORIDE 103 mmol/L (98-107); GLUCOSE 147 mg/dL (75-110); POTASSIUM 3.9 mmol/L (3.6-5.0)
[2018-03-22] MEDS: POTASSIUM CHLORIDE 10 MEQ TABLET.SA PO SCH ×2 (08:03→17:05)
[2018-03-22] MEDS: HYDROCHLOROTHIAZIDE 25 MG TABLET PO SCH (08:03)
--- NOTE | 2018-03-22 08:53 | RADIOLOGY REPORT (SQ) ---
EXAM DESCRIPTION: CHEST 2 VIEWS COMPLETED DATE/TIME: 03/22/2018 7:46 am REASON FOR STUDY: pna COMPARISON: 03/13/2018 EXAM PARAMETERS: NUMBER OF VIEWS: two views TECHNIQUE: Digital Frontal and Lateral radiographic views of the chest acquired. RADIATION DOSE: NA LIMITATIONS: none FINDINGS: LUNGS AND PLEURA: Some improvement in the appearance of the lungs since the prior examina tion with a decrease in the bilateral airspace disease. Persistent prominent interstitial markings i n the lungs, may represent pneumonia or edema. Small left pleural effusion, unchanged finding. MEDIASTINUM AND HILAR STRUCTURES: No masses or contour abnormalities. HEART AND VASCULAR STRUCTURES: Heart normal size. No evidence for failure. BONES: No acute findings. HARDWARE: None in the chest. OTHER: No other significant finding. IMPRESSION: 1 Some improvement in the appearance of the lungs with a decrease in the bilateral perih ilar airspace opacities. Persistent interstitial prominent markings, may represent pneumonia or joaquin a. Small persistent left pleural effusion. TECHNICAL DOCUMENTATION: JOB ID: [id number] [employer]- All Rights Reserved Reading location - IP/workstation name: [email or web address]
[2018-03-22] MEDS: DOCUSATE SODIUM 100 MG CAPSULE PO SCH ×2 (09:27→17:05)
[2018-03-22] MEDS: LACTOBACILLUS ACIDOPHILUS 250 MG TAB PO SCH ×2 (09:27→17:05)
[2018-03-22] MEDS: ENOXAPARIN SODIUM INJ 40 MG/0.4 ML DISP.SYRIN SUBCUT SCH (09:28)
[2018-03-22] MEDS: THIAMINE HCL 100 MG TABLET PO SCH (09:28)
[2018-03-22] MEDS: ASCORBIC ACID 500 MG TABLET PO SCH ×2 (09:28→17:06)
[2018-03-22] MEDS: FERROUS SULFATE 325 MG TABLET PO SCH ×2 (09:28→17:05)
[2018-03-22] MEDS: BUPROPION HCL 75 MG TABLET PO SCH ×2 (09:28→21:47)
--- NOTE | 2018-03-22 16:58 | PDOC PROGRESS REPORT ---
Subjective Progress Note for:: 03/22/18 Subjective:: 62-year-old female with history of Hypertension COPD Migraines Tremors Depression Generalized anxiety disorder Hepatitis C Tobacco dependence Alcohol dependence She was admitted to this hospital on March 08 with confusion and left hip fracture. [place] she was found to have an elevated blood alcohol level, hypernatremia, dehydration Patient underwent surgery for her left comminuted intertrochanteric hip fracture with nailing on March 09. Plan is for acute rehab in [place]. On March 13 the patient developed acute respiratory distress and hypoxia which was felt to be secondary to pulmonary edema and volume overload. She was started on antibiotics and diuretics put on BiPAP and transferred to the intensive care unit. CT scan of the chest done on March 15 suggestive of ARDS. She was continued on antibiotics. Steroids were added. Chest x-ray from March 19 shows an improvement. Echocardiogram done on March 15 showed normal left ventricular ejection fraction with borderline concentric left ventricular hypertrophy. Mild to moderate diastolic dysfunction. Weighted right ventricular systolic pressure at 30-40 mmHg. No significant valvular abnormalities. Doing much better today, oxygen requirements gone down, chest X ray improved. Still constipated, blisters on both hand with erythema Reason For Visit: LEFT HIP FRACTURE,ALCOHOL INTOXICATION Physical Exam Vital Signs: Temp Pulse Resp BP Pulse Ox 98.2 F 75 20 93/52 L 93 03/22/18 15:40 03/22/18 15:40 03/22/18 15:40 03/22/18 15:40 03/22/18 15:40 Pulse Oximeter Continuous Start: 03/16/18 09: 05 Freq: RTQ4 Status: Active Document 03/22/18 12:00 [facility] (Rec: 03/22/18 13:17 [facility] [email or web address]) Pulse Oximetry Assessment Oxygen Saturation (92-100) 96 Oxygen Delivery Method Room Air Equipment Usage Equipment in Use Continuous SpO2 Machine # 13 Intake & Output 03/21/18 03/22/18 03/23/18 06:59 06:59 06:59 Intake Total 0325 0291 Output Total 8939 0045 Balance -6131 -8991 Weight 66.8 kg 66.2 kg General appearance: PRESENT: no acute distress, thin Head exam: PRESENT: normocephalic Ear exam: PRESENT: normal external ear exam Mouth exam: PRESENT: moist Neck exam: ABSENT: tenderness Respiratory exam: PRESENT: clear to auscultation mariana, symmetrical, unlabored Cardiovascular exam: PRESENT: RRR GI/Abdominal exam: PRESENT: normal bowel sounds, soft Rectal exam: PRESENT: deferred Extremities exam: ABSENT: pedal edema Neurological exam: PRESENT: alert, awake, oriented to person, oriented to place , oriented to time, oriented to situation Psychiatric exam: PRESENT: appropriate affect Skin exam: PRESENT: other - eryhthema and blisters on palms bilateral, no pustules Results Laboratory Results: 03/22/18 06:52 03/22/18 06:52 03/22/18 03/22/18 03/22/18 06:30 06:52 06:52 WBC 12.8 H RBC 2.81 L Hgb 8.9 L Hct 26.5 L MCV 94 MCH 31.6 MCHC 33.6 RDW 14.1 H Plt Count 254 Seg Neutrophils % 84.0 H Lymphocytes % 8.0 L Monocytes % 7.0 Eosinophils % 0.6 Basophils % 0.4 Absolute Neutrophils 10.8 H Absolute Lymphocytes 1.0 Absolute Monocytes 0.9 Absolute Eosinophils 0.1 Absolute Basophils 0.0 Carbonic Acid 1.06 HCO3/H2CO3 Ratio 21:1 ABG pH 7.44 ABG pCO2 35.2 ABG pO2 88.8 ABG HCO3 23.2 ABG O2 Saturation 97.1 ABG Base Excess -0.7 FiO2 2L Sodium 138.0 Potassium 3.9 Chloride 103 Carbon Dioxide 24 Anion Gap 11 BUN 11 Creatinine 0.49 L Est GFR ( Amer) > 60 Est GFR (Non-Af Amer) > 60 Glucose 147 H Calcium 8.5 Phosphorus 4.0 Magnesium 1.9 03/22/18 06:52 NT-Pro-B Natriuret Pep 1060 H Impressions: Pelvis X-Ray 03/08/18 07:16 IMPRESSION: Acute left proximal femoral intertrochanteric fracture. Femur X-Ray 03/08/18 07:17 IMPRESSION: Acute left proximal femoral intertrochanteric fracture with moderate varus angulation Fluoroscopy 03/09/18 00:00 IMPRESSION: IMAGE(S) OBTAINED DURING PROCEDURE. Hip X-Ray 03/09/18 00:00 IMPRESSION: IMAGE(S) OBTAINED DURING PROCEDURE. Head CT 03/10/18 00:00 IMPRESSION: No acute intracranial changes. Frontal ethmoid and sphenoid sinusitis EVIDENCE OF ACUTE STROKE: No Chest CT 03/15/18 00:00 IMPRESSION: Multicentric pneumonia. Chest X-Ray 03/22/18 06:00 IMPRESSION: 1 Some improvement in the appearance of the lungs with a decrease in the bilateral perihilar airspace opacities. Persistent interstitial prominent markings, may represent pneumonia or edema. Small persistent left pleural effusion. Assessment & Plan - Diagnosis (1) Acute respiratory failure with hypoxia Is this a current diagnosis for this admission?: Yes Plan: Due to ARDS. Day 9 of antibiotics. Switch to PO Linezolid. Respiratory status and oxygen requirement slowly improving. Continue nebulizers. (2) ARDS (adult respiratory distress syndrome) Is this a current diagnosis for this admission?: Yes Plan: As above (3) Depression with anxiety Is this a current diagnosis for this admission?: Yes Plan: Celexa, Wellbutrin, Topamax. Valium as needed. Avoid oversedation. (4) Fall Qualifiers: Encounter type: sequela Qualified Code(s): W19.XXXS - Unspecified fall, sequela Is this a current diagnosis for this admission?: Yes Plan: Fall precautions. Physical therapy. (5) Fracture, intertrochanteric, left femur Qualifiers: Fracture type: closed Fracture healing: with routine healing Is this a current diagnosis for this admission?: Yes Plan: Continue pain control and physical therapy as tolerated. Discharge to rehab once stable. (6) Iron deficiency anemia Is this a current diagnosis for this admission?: Yes Plan: Iron supplementation. (7) DVT prophylaxis Is this a current diagnosis for this admission?: Yes Plan: Lovenox s/c (8) Alcohol dependence Is this a current diagnosis for this admission?: Yes Plan: valium prn. Thiamine 100mg daily (9) Tobacco dependence Is this a current diagnosis for this admission?: Yes Plan: Nicotine patch prn (10) Constipation Is this a current diagnosis for this admission?: Yes Plan: laxatives and stool softeners (11) Hypomagnesemia Is this a current diagnosis for this admission?: Yes Plan: Repleted, continue to monitor (12) Hypokalemia Is this a current diagnosis for this admission?: Yes Plan: Repleted, continue to monitor (13) Thrombocytopenia Is this a current diagnosis for this admission?: Yes Plan: Resolved (14) Rash and nonspecific skin eruption Is this a current diagnosis for this admission?: Yes Plan: No involvement of oral mucosa, ? antibiotic related. [place]; stop Vanc and Cefepime, start Linezolid to complete antibiotic course. Tramadol stopped - Time Time Spent with patient: 35 or more minutes
[2018-03-22] MEDS: LACTULOSE SYRUP 20 GM/30 ML UDCUP PO SCH (17:07)
[2018-03-22] MEDS: LINEZOLID 600 MG TABLET PO SCH (17:29)
[2018-03-22] MEDS: MAGNESIUM OXIDE 400 MG TABLET PO SCH (17:30)
[2018-03-22] MEDS ORDERED: CEFEPIME HCL 2 GM in DEXTROSE 5%-WATER 50 ML IV SCH (18:00)
[2018-03-22] MEDS: CITALOPRAM HYDROBROMIDE 20 MG TABLET PO SCH (21:46)
[2018-03-22] MEDS: SENNOSIDES/DOCUSATE 8.6-50 MG 1 EACH TABLET PO SCH (21:46)
[2018-03-22] MEDS: POLYVINYL ALCOHOL 1.4% OPH SOLN 15 ML OD PRN (21:47)
[2018-03-22] MEDS: TOPIRAMATE 100 MG TABLET PO SCH (21:47)
[2018-03-23] MEDS: POLYVINYL ALCOHOL 1.4% OPH SOLN 15 ML OD PRN ×2 (01:06→10:58)
[2018-03-23] MEDS ORDERED: VANCOMYCIN HCL 1,000 MG in DEXTROSE 5%-WATER 250 ML IV SCH (02:00)
[2018-03-23] MEDS: LEVALBUTEROL HCL NEB 1.25 MG/3 ML AMPUL NEB SCH ×4 (02:33→20:31)
[2018-03-23] MEDS: METHYLPREDNISOLONE INJ 40 MG/1 ML SDV IV SCH (06:32)
[2018-03-23] MEDS: LINEZOLID 600 MG TABLET PO SCH (06:32)
[2018-03-23] MEDS: LANSOPRAZOLE 30 MG TAB.RAP.DR PO SCH (06:33)
[2018-03-23] MEDS: DIAZEPAM 2 MG TABLET PO PRN ×2 (06:45→15:00)
[2018-03-23] MEDS: POTASSIUM CHLORIDE 10 MEQ TABLET.SA PO SCH ×2 (09:10→15:05)
[2018-03-23] MEDS: HYDROCHLOROTHIAZIDE 25 MG TABLET PO SCH (09:10)
--- NOTE | 2018-03-23 09:59 | PDOC PROGRESS REPORT ---
Subjective Progress Note for:: 03/23/18 Subjective:: Patient lying in bed comfortably. Patient has developed blistering along the palms of her hands and soles of her feet. Denies specific injury. Currently taking Tylenol for pain still has pain with motion of her hip. Was able to ambulate 20 feet yesterday. Reason For Visit: LEFT HIP FRACTURE,ALCOHOL INTOXICATION Physical Exam Vital Signs: Temp Pulse Resp BP Pulse Ox 98.3 F 78 16 104/47 L 96 03/23/18 08:38 03/23/18 08:38 03/23/18 08:38 03/23/18 08:38 03/23/18 08:38 Pulse Oximeter Continuous Start: 03/16/18 09: 05 Freq: RTQ4 Status: Active Document 03/23/18 07:55 [facility] [place]Rec: 03/23/18 08:13 [facility] [place] [email or web address]) Pulse Oximetry Assessment Oxygen Saturation (92-100) 95 Oxygen Delivery Method Room Air Fraction of Inspired Oxygen (FIO2) 21 Equipment Usage Equipment in Use Continuous SpO2 Machine # [id number] Intake & Output 03/22/18 03/23/18 03/24/18 06:59 06:59 06:59 Intake Total 1831 1673 Output Total 5400 6525 Balance -3569 -930 Weight 66.2 kg 60.2 kg Musculoskeletal exam: PRESENT: other - Left hip: Dressing clean/dry/intact no erythema or drainage. Mild ecchymosis along the proximal wound. No pain with hip range of motion. No crepitus with range of motion. No calf tenderness. Bilateral hands: Patient has clear fluid filled blisters along the palm and thenar eminence with small macular papular rash. Similar fluid-filled blisters along the soles of her left foot. Results Laboratory Results: 03/22/18 06:52 03/22/18 06:52 03/22/18 06:52 NT-Pro-B Natriuret Pep 1060 H Impressions: Pelvis X-Ray 03/08/18 07:16 IMPRESSION: Acute left proximal femoral intertrochanteric fracture. Femur X-Ray 03/08/18 07:17 IMPRESSION: Acute left proximal femoral intertrochanteric fracture with moderate varus angulation Fluoroscopy 03/09/18 00:00 IMPRESSION: IMAGE(S) OBTAINED DURING PROCEDURE. Hip X-Ray 03/09/18 00:00 IMPRESSION: IMAGE(S) OBTAINED DURING PROCEDURE. Head CT 03/10/18 00:00 IMPRESSION: No acute intracranial changes. Frontal ethmoid and sphenoid sinusitis EVIDENCE OF ACUTE STROKE: No Chest CT 03/15/18 00:00 IMPRESSION: Multicentric pneumonia. Chest X-Ray 03/22/18 06:00 IMPRESSION: 1 Some improvement in the appearance of the lungs with a decrease in the bilateral perihilar airspace opacities. Persistent interstitial prominent markings, may represent pneumonia or edema. Small persistent left pleural effusion. Assessment & Plan - Diagnosis (1) Intertrochanteric fracture of femur Qualifiers: Encounter type: initial encounter Fracture type: closed Fracture alignment: displaced Laterality: left Qualified Code(s): S72.142A - Displaced intertrochanteric fracture of left femur, initial encounter for closed fracture Is this a current diagnosis for this admission?: Yes Plan: Status post IM nail left intertrochanteric fracture Patient's respiratory status significantly improved. However she has now developed blistering along the palms of her hands and soles of her feet which is possibly secondary to allergic dermatitis versus eczema versus bullous pemphigoid. Would defer to medical service. #1 physical therapy weightbearing as tolerated #2 Lovenox for DVT prophylaxis #3 pain control #4 discharge planning to [facility] facility when medically stable
[2018-03-23] MEDS: DOCUSATE SODIUM 100 MG CAPSULE PO SCH ×2 (10:06→17:22)
[2018-03-23] MEDS: LACTULOSE SYRUP 20 GM/30 ML UDCUP PO SCH ×2 (10:06→17:22)
[2018-03-23 10:36] LABS: VANCOMYCIN,TROUGH 6.2 ug/mL (5.0-20.0)
[2018-03-23] MEDS: BUPROPION HCL 75 MG TABLET PO SCH (10:49)
[2018-03-23] MEDS: FERROUS SULFATE 325 MG TABLET PO SCH ×2 (10:49→18:04)
[2018-03-23] MEDS: ENOXAPARIN SODIUM INJ 40 MG/0.4 ML DISP.SYRIN SUBCUT SCH (10:49)
[2018-03-23] MEDS: ASCORBIC ACID 500 MG TABLET PO SCH ×2 (10:49→18:04)
[2018-03-23] MEDS: THIAMINE HCL 100 MG TABLET PO SCH (10:49)
[2018-03-23] MEDS: LACTOBACILLUS ACIDOPHILUS 250 MG TAB PO SCH ×2 (10:50→18:04)
[2018-03-23 12:30] VITALS: BP 99/53
[2018-03-23] MEDS ORDERED: METHYLPREDNISOLONE INJ 40 MG/1 ML SDV IV SCH (15:00)
[2018-03-23] MEDS ORDERED: TRAMADOL HCL 50 MG TABLET PO PRN (15:36)
--- NOTE | 2018-03-23 15:41 | PDOC TRANSFER SUMMARY ---
General Admission Date/PCP: 03/08/18 11:13 Transfer Date: 03/23/18 Accepting Facility: [place] Accepting Physician: Dr. Margarita Segura- [facility] Resuscitation Status: Full Code - Transfer Diagnosis (1) Crandall-Venkat syndrome Is this a current diagnosis for this admission?: Yes Diagnosis Summary: Hydrochlorothiazide and all antibiotics stopped. (2) Acute respiratory failure with hypoxia Is this a current diagnosis for this admission?: Yes Diagnosis Summary: Resolved (3) ARDS (adult respiratory distress syndrome) Is this a current diagnosis for this admission?: Yes Diagnosis Summary: Resolved (4) Depression with anxiety Is this a current diagnosis for this admission?: Yes (5) Fall Is this a current diagnosis for this admission?: Yes (6) Fracture, intertrochanteric, left femur Is this a current diagnosis for this admission?: Yes (7) Iron deficiency anemia Is this a current diagnosis for this admission?: Yes (8) DVT prophylaxis Is this a current diagnosis for this admission?: Yes (9) Alcohol dependence Is this a current diagnosis for this admission?: Yes (10) Tobacco dependence Is this a current diagnosis for this admission?: Yes (11) Constipation Is this a current diagnosis for this admission?: Yes (12) Hypomagnesemia Is this a current diagnosis for this admission?: Yes (13) Hypokalemia Is this a current diagnosis for this admission?: Yes (14) Thrombocytopenia Is this a current diagnosis for this admission?: Yes (15) Rash and nonspecific skin eruption Is this a current diagnosis for this admission?: Yes - Transfer Medications Home Medications: Bupropion HCl [Wellbutrin Xl 150 mg 24hr Tablet] 150 mg PO DAILY 03/08/18 Citalopram Hydrobromide [Celexa 20 mg Tablet] 20 mg PO QHS 03/08/18 Rizatriptan Benzoate [Maxalt] 10 mg PO ASDIR PRN 03/08/18 Topiramate [Topamax] 150 mg PO QHS 03/08/18 Transfer Medications: Current Medications Acetaminophen (Tylenol 325 Mg Tablet) 650 mg PO Q6HP PRN PRN Reason: PAIN SCALE OF 2-5 Stop: 04/08/18 05:08 Albuterol/Ipratropium (Duoneb 3 Ml Ampul) 3 ml NEB RTQ4HP PRN PRN Reason: WHEEZING Stop: 04/16/18 09:57 Artificial Tears (Liquitears 1.4% Ophth Soln 15 Ml) 1 drop OD Q4HP PRN PRN Reason: DRY EYE(S) Stop: 04/21/18 14:52 Last Admin: 03/23/18 10:58 Dose: 1 drop Ascorbic Acid (Vitamin C 500 Mg Tablet) 500 mg PO BIDPCBS REPLACED BY [facility] Stop: 04/16/18 17:59 Last Admin: 03/23/18 10:49 Dose: 500 mg Bisacodyl (Dulcolax 10 Mg Supp.Rect) 10 mg IN DAILYP PRN PRN Reason: FOR CONSTIPATION Stop: 04/20/18 13:35 Bupropion HCl (Wellbutrin 75 Mg Tablet) 75 mg PO Q12 REPLACED BY [facility] Stop: 04/07/18 21:59 Last Admin: 03/23/18 10:49 Dose: 75 mg Citalopram Hydrobromide (Celexa 20 Mg Tablet) 20 mg PO QHS REPLACED BY [facility] Stop: 04/07/18 21:59 Last Admin: 03/22/18 21:46 Dose: 20 mg Diazepam (Valium 2 Mg Tablet) 2 mg PO Q6HP PRN PRN Reason: ANXIETY/AGITATION Stop: 03/31/18 13:32 Last Admin: 03/23/18 06:45 Dose: 2 mg Docusate Sodium (Colace 100 Mg Capsule) 100 mg PO BID REPLACED BY [facility] Stop: 04/21/18 09:59 Last Admin: 03/23/18 10:06 Dose: Not Given Enoxaparin Sodium (Lovenox Inj 40 Mg/0.4 Ml Disp.Syrin) 40 mg SUBCUT DAILY REPLACED BY [facility] Stop: 04/21/18 09:59 Last Admin: 03/23/18 10:49 Dose: 40 mg Ferrous Sulfate (Feosol 325 Mg Tablet) 325 mg PO BIDPCBS REPLACED BY [facility] Stop: 04/16/18 17:59 Last Admin: 03/23/18 10:49 Dose: 325 mg Lactobacillus Acidophilus (Bacid 250 Mg Tablet) 500 mg PO BID REPLACED BY [facility] Stop: 04/20/18 17:59 Last Admin: 03/23/18 10:50 Dose: 500 mg Lactulose (Cephulac Syrup 20 Gm/30 Ml Udcup) 20 gm PO BID REPLACED BY [facility] Stop: 04/21/18 17:59 Last Admin: 03/23/18 10:06 Dose: Not Given Lansoprazole (Prevacid 30 Mg Odt Tablet) 30 mg PO Q6AM RODRIGO Stop: 04/09/18 05:59 Last Admin: 03/23/18 06:33 Dose: 30 mg Levalbuterol HCl (Xopenex Neb 1.25 Mg/3 Ml Ampul) 1.25 mg NEB RTQ6 RODRIGO Stop: 04/16/18 13:59 Last Admin: 03/23/18 14:37 Dose: 1.25 mg Magnesium Oxide (Mag-Ox 400 Mg Tablet) 400 mg PO QPM RODRIGO Stop: 04/21/18 17:59 Last Admin: 03/22/18 17:30 Dose: Not Given Methylprednisolone Sodium Succinate (Solu-Medrol Inj/Pf 40 Mg/1 Ml Sdv) 60 mg IV Q6A RODRIGO Stop: 04/22/18 14:59 Last Admin: 03/23/18 15:00 Dose: 60 mg Ondansetron HCl (Zofran Inj/Pf 4 Mg/2 Ml Sdv) 4 mg IV Q12HP PRN PRN Reason: FOR NAUSEA/VOMITING Stop: 04/07/18 17:29 Last Admin: 03/16/18 13:46 Dose: 4 mg Ondansetron HCl (Zofran Odt 4 Mg Tablet) 4 mg PO Q6HP PRN PRN Reason: Nausea Stop: 04/08/18 18:52 Last Admin: 03/17/18 18:31 Dose: 4 mg Potassium Chloride (Klor-Con 10 Meq Tablet.Sa) 20 meq PO BIDACBS RODRIGO Stop: 04/16/18 15:59 Last Admin: 03/23/18 15:05 Dose: 20 meq Senna/Docusate Sodium (Senna Plus Tablet) 2 each PO QHS RODRIGO Stop: 04/20/18 21:59 Last Admin: 03/22/18 21:46 Dose: 2 each Sodium Chloride (Saline Flush 2.5 Ml Monoject Prefil Syrin) 2.5 ml IV Q8 RODRIGO Stop: 04/08/18 21:59 Last Admin: 03/23/18 15:00 Dose: 2.5 ml Thiamine HCl (Thiamine 100 Mg Tablet) 100 mg PO DAILY RODRIGO Stop: 04/21/18 09:59 Last Admin: 03/23/18 10:49 Dose: 100 mg Topiramate (Topamax 100 Mg Tablet) 150 mg PO QHS RODRIGO Stop: 04/07/18 21:59 Last Admin: 03/22/18 21:47 Dose: 150 mg Tramadol HCl (Ultram 50 Mg Tablet) 50 mg PO Q6HP PRN PRN Reason: FOR PAIN Stop: 03/30/18 15:35 - Allergies Allergies/Adverse Reactions: oxycodone [Oxycodone] Adverse Reaction (Severe, Verified 11/06/14 14:33) nausea/vomiting - Diet/Activity Discharge Diet: As Tolerated Hospital Course Hospital Course: 62-year-old female with history of Hypertension COPD Migraines Tremors Depression Generalized anxiety disorder Hepatitis C Tobacco dependence Alcohol dependence She was admitted to this hospital on March 08 with confusion and left hip fracture. [place] she was found to have an elevated blood alcohol level, hypernatremia, dehydration Patient underwent surgery for her left comminuted intertrochanteric hip fracture with nailing on March 09. Plan is for acute rehab in [place]. On March 13 the patient developed acute respiratory distress and hypoxia which was felt to be secondary to pulmonary edema and volume overload. She was started on antibiotics and diuretics put on BiPAP and transferred to the intensive care unit. CT scan of the chest done on March 15 suggestive of ARDS. She was continued on antibiotics. Steroids were added. Chest x-ray from March 19 shows an improvement. Echocardiogram done on March 15 showed normal left ventricular ejection fraction with borderline concentric left ventricular hypertrophy. Mild to moderate diastolic dysfunction. Weighted right ventricular systolic pressure at 30-40 mmHg. No significant valvular abnormalities. She was noted to have blisters on the palms of her hands with progression and enlargement in size and involvement of the soles of her feet, back and oral mucosa. All antibiotics have been stopped (Vancomycin, Cefepime, Linezolid). Hydrochlorothiazide was stopped. Continue IV steroids which she had been on. She has been accepted by [facility] for close monitoring and managemant- Dr. Segura. Physical Exam Vital Signs: Temp Pulse Resp BP Pulse Ox 98.9 F 80 14 99/53 L 97 03/23/18 11:17 03/23/18 14:36 03/23/18 14:36 03/23/18 11:17 03/23/18 14:36 Pulse Oximeter Continuous Start: 03/16/18 09: 05 Freq: RTQ4 Status: Active Document 03/23/18 12:30 [facility] (Rec: 03/23/18 12:49 [facility] [email or web address]) Pulse Oximetry Assessment Oxygen Saturation (92-100) 95 Oxygen Delivery Method Room Air Fraction of Inspired Oxygen (FIO2) 21 Equipment Usage Equipment in Use Continuous SpO2 Machine # [id number] Intake & Output 03/22/18 03/23/18 03/24/18 06:59 06:59 06:59 Intake Total 1836 1673 1200 Output Total 8097 5852 Balance -3569 -252 1200 Weight 66.2 kg 60.2 kg General appearance: PRESENT: no acute distress Head exam: PRESENT: normocephalic Respiratory exam: PRESENT: clear to auscultation mariana, symmetrical Cardiovascular exam: PRESENT: RRR, systolic murmur GI/Abdominal exam: PRESENT: soft Results Laboratory Results: 03/22/18 06:52 03/23/18 09:23 03/23/18 09:23 Creatinine 0.59 Est GFR ( Amer) > 60 Est GFR (Non-Af Amer) > 60 03/22/18 06:52 NT-Pro-B Natriuret Pep 1060 H Impressions: Pelvis X-Ray 03/08/18 07:16 IMPRESSION: Acute left proximal femoral intertrochanteric fracture. Femur X-Ray 03/08/18 07:17 IMPRESSION: Acute left proximal femoral intertrochanteric fracture with moderate varus angulation Fluoroscopy 03/09/18 00:00 IMPRESSION: IMAGE(S) OBTAINED DURING PROCEDURE. Hip X-Ray 03/09/18 00:00 IMPRESSION: IMAGE(S) OBTAINED DURING PROCEDURE. Head CT 03/10/18 00:00 IMPRESSION: No acute intracranial changes. Frontal ethmoid and sphenoid sinusitis EVIDENCE OF ACUTE STROKE: No Chest CT 03/15/18 00:00 IMPRESSION: Multicentric pneumonia. Chest X-Ray 03/22/18 06:00 IMPRESSION: 1 Some improvement in the appearance of the lungs with a decrease in the bilateral perihilar airspace opacities. Persistent interstitial prominent markings, may represent pneumonia or edema. Small persistent left pleural effusion. Status: Imported from PACS Plan Time Spent: Greater than 30 Minutes
[2018-03-23] MEDS: MAGNESIUM OXIDE 400 MG TABLET PO SCH (18:04)
--- NOTE | 2018-03-23 19:05 | PDOC PROGRESS REPORT ---
Subjective Progress Note for:: 03/18/18 Subjective:: Still short of breath desaturates with minimal movement Reason For Visit: LEFT HIP FRACTURE,ALCOHOL INTOXICATION Physical Exam Vital Signs: Temp Pulse Resp BP Pulse Ox 99.1 F 68 20 106/54 L 97 03/18/18 19:54 03/18/18 19:54 03/18/18 19:54 03/18/18 19:54 03/18/18 19:54 Pulse Oximeter Continuous Start: 03/16/18 09: 05 Freq: RTQ4 Status: Active Document 03/18/18 17:28 TPO (Rec: 03/18/18 17:29 TPO [email or web address]) Pulse Oximetry Assessment Oxygen Saturation (92-100) 95 Oxygen Flow Rate (L/min) 4 Oxygen Delivery Method Nasal Cannula Fraction of Inspired Oxygen (FIO2) 36 Equipment Usage Equipment in Use Continuous SpO2 Machine # 13 Intake & Output 03/17/18 03/18/18 03/19/18 06:59 06:59 06:59 Intake Total 9820 1864 1991 Output Total 1855 1999 1725 Balance -845 -136 267 Weight 65.9 kg 68.7 kg General appearance: PRESENT: no acute distress, cooperative, disheveled, thin Head exam: PRESENT: atraumatic, normocephalic Eye exam: PRESENT: conjunctiva pale, EOMI. ABSENT: nystagmus, periorbital swelling, scleral icterus Mouth exam: PRESENT: dry mucosa, neck supple, tongue midline Neck exam: ABSENT: carotid bruit, JVD, lymphadenopathy, thyromegaly, tracheal deviation, tracheostomy Respiratory exam: PRESENT: decreased breath sounds, prolonged expiratory phas, rales, rhonchi, symmetrical, unlabored. ABSENT: retraction, stridor, tachypnea Cardiovascular exam: PRESENT: RRR, +S1, +S2 Pulses: PRESENT: normal radial pulses GI/Abdominal exam: PRESENT: diminished bowel sounds, soft Extremities exam: PRESENT: other - Status post surgery for hip repair. ABSENT: calf tenderness, clubbing, joint swelling Musculoskeletal exam: ABSENT: deformity, dislocation Neurological exam: PRESENT: alert, awake Psychiatric exam: PRESENT: normal mood Skin exam: PRESENT: dry, other - Bullous lesions over her entire body various sizes small flat macular rash is also over the trunk and back Results Laboratory Results: 03/16/18 16:37 03/17/18 05:56 03/13/18 18:50 Blood Blood Culture - Final NO GROWTH IN 5 DAYS 03/13/18 17:55 Blood Blood Culture - Final NO GROWTH IN 5 DAYS Impressions: Pelvis X-Ray 03/08/18 07:16 IMPRESSION: Acute left proximal femoral intertrochanteric fracture. Femur X-Ray 03/08/18 07:17 IMPRESSION: Acute left proximal femoral intertrochanteric fracture with moderate varus angulation Fluoroscopy 03/09/18 00:00 IMPRESSION: IMAGE(S) OBTAINED DURING PROCEDURE. Hip X-Ray 03/09/18 00:00 IMPRESSION: IMAGE(S) OBTAINED DURING PROCEDURE. Head CT 03/10/18 00:00 IMPRESSION: No acute intracranial changes. Frontal ethmoid and sphenoid sinusitis EVIDENCE OF ACUTE STROKE: No Chest CT 03/15/18 00:00 IMPRESSION: Multicentric pneumonia. Chest X-Ray 03/16/18 00:00 IMPRESSION: 1. Interval increase in diffuse bilateral airspace opacity. Assessment & Plan - Diagnosis (1) Acute respiratory failure with hypoxia Is this a current diagnosis for this admission?: Yes Plan: Acute lung injury etiology uncertain suspect this is superimposed on some chronic injury from long-standing history of smoking. Suggest aggressive chest physiotherapy and acetylcysteine nebulizers realized that aggressiveness of the physical therapy will be limited to her recent hip fractureIn. Also suggest follow-up CT scan 4-6 days to follow progression of lesions if patient is not improving we can proceed with fiberoptic bronchoscopy (2) Alcohol abuse Is this a current diagnosis for this admission?: Yes Plan: No evidence of delirium tremens at this time (3) Depression with anxiety Is this a current diagnosis for this admission?: Yes Plan: Extremely poor missed memory for short-term;May be secondary to chronic EtOH abuse (4) Intertrochanteric fracture of femur Qualifiers: Encounter type: initial encounter Fracture type: closed Fracture alignment: displaced Laterality: left Qualified Code(s): S72.142A - Displaced intertrochanteric fracture of left femur, initial encounter for closed fracture Is this a current diagnosis for this admission?: Yes Plan: As per surgery
--- NOTE | 2018-03-23 19:08 | PDOC PROGRESS REPORT ---
Subjective Progress Note for:: 03/19/18 Subjective:: Still short of breath desaturates with minimal movement Reason For Visit: LEFT HIP FRACTURE,ALCOHOL INTOXICATION Physical Exam Vital Signs: Temp Pulse Resp BP Pulse Ox 97.2 F 68 18 92/49 L 93 03/19/18 07:28 03/19/18 08:19 03/19/18 08:19 03/19/18 07:28 03/19/18 08:19 Pulse Oximeter Continuous Start: 03/16/18 09: 05 Freq: RTQ4 Status: Active Document 03/19/18 08:19 TPO (Rec: 03/19/18 08:48 TPO [email or web address]) Pulse Oximetry Assessment Oxygen Saturation (92-100) 93 Oxygen Flow Rate (L/min) 3 Oxygen Delivery Method Nasal Cannula Fraction of Inspired Oxygen (FIO2) 32 Equipment Usage Equipment in Use Continuous SpO2 Machine # 13 Intake & Output 03/18/18 03/19/18 03/20/18 06:59 06:59 06:59 Intake Total 1866 3032 Output Total 1999 3724 Balance -136 -693 Weight 68.7 kg 71.8 kg General appearance: PRESENT: cooperative, disheveled, mild distress Head exam: PRESENT: atraumatic, normocephalic Eye exam: PRESENT: conjunctiva pale, EOMI. ABSENT: nystagmus, periorbital swelling, scleral icterus Mouth exam: PRESENT: dry mucosa, neck supple, tongue midline Neck exam: ABSENT: carotid bruit, JVD, lymphadenopathy, thyromegaly, tracheal deviation, tracheostomy Respiratory exam: PRESENT: decreased breath sounds, prolonged expiratory phas, rales, rhonchi, symmetrical, unlabored. ABSENT: retraction, stridor, tachypnea Cardiovascular exam: PRESENT: RRR, +S1, +S2 Pulses: PRESENT: normal radial pulses GI/Abdominal exam: PRESENT: diminished bowel sounds, soft Extremities exam: ABSENT: calf tenderness, clubbing, full ROM, joint swelling Musculoskeletal exam: ABSENT: deformity, dislocation, full ROM Neurological exam: PRESENT: alert, awake Skin exam: PRESENT: dry, warm Results Laboratory Results: 03/16/18 16:37 03/17/18 05:56 03/13/18 18:50 Blood Blood Culture - Final NO GROWTH IN 5 DAYS 03/13/18 17:55 Blood Blood Culture - Final NO GROWTH IN 5 DAYS Impressions: Pelvis X-Ray 03/08/18 07:16 IMPRESSION: Acute left proximal femoral intertrochanteric fracture. Femur X-Ray 03/08/18 07:17 IMPRESSION: Acute left proximal femoral intertrochanteric fracture with moderate varus angulation Fluoroscopy 03/09/18 00:00 IMPRESSION: IMAGE(S) OBTAINED DURING PROCEDURE. Hip X-Ray 03/09/18 00:00 IMPRESSION: IMAGE(S) OBTAINED DURING PROCEDURE. Head CT 03/10/18 00:00 IMPRESSION: No acute intracranial changes. Frontal ethmoid and sphenoid sinusitis EVIDENCE OF ACUTE STROKE: No Chest CT 03/15/18 00:00 IMPRESSION: Multicentric pneumonia. Chest X-Ray 03/16/18 00:00 IMPRESSION: 1. Interval increase in diffuse bilateral airspace opacity. Assessment & Plan - Diagnosis (1) Acute respiratory failure with hypoxia Is this a current diagnosis for this admission?: Yes Plan: Unchanged (2) Alcohol abuse Is this a current diagnosis for this admission?: Yes Plan: No evidence of delirium tremens at this time (3) Depression with anxiety Is this a current diagnosis for this admission?: Yes Plan: Extremely poor missed memory for short-term;May be secondary to chronic EtOH abuse (4) Fracture, intertrochanteric, left femur Qualifiers: Fracture type: closed Fracture healing: with routine healing Is this a current diagnosis for this admission?: Yes Plan: As per orthopedic surgery
--- NOTE | 2018-03-23 19:10 | PDOC PROGRESS REPORT ---
Subjective Progress Note for:: 03/22/18 Subjective:: Still short of breath desaturates with minimal movement Reason For Visit: LEFT HIP FRACTURE,ALCOHOL INTOXICATION Physical Exam Vital Signs: Temp Pulse Resp BP Pulse Ox 98.9 F 74 22 H 109/48 L 96 03/22/18 08:35 03/22/18 08:35 03/22/18 08:35 03/22/18 08:35 03/22/18 12:00 Pulse Oximeter Continuous Start: 03/16/18 09: 05 Freq: RTQ4 Status: Active Document 03/22/18 12:00 [facility] (Rec: 03/22/18 13:17 [facility] [email or web address]) Pulse Oximetry Assessment Oxygen Saturation (92-100) 96 Oxygen Delivery Method Room Air Equipment Usage Equipment in Use Continuous SpO2 Machine # [id number] Intake & Output 03/21/18 03/22/18 03/23/18 06:59 06:59 06:59 Intake Total 2513 1831 Output Total 6502 5400 Balance -2396 -3838 Weight 66.8 kg 66.2 kg General appearance: PRESENT: cooperative, disheveled, thin Head exam: PRESENT: atraumatic, normocephalic Eye exam: PRESENT: conjunctiva pale, EOMI. ABSENT: nystagmus, periorbital swelling, scleral icterus Mouth exam: PRESENT: moist, neck supple, tongue midline Neck exam: ABSENT: carotid bruit, JVD, lymphadenopathy, thyromegaly, tracheal deviation, tracheostomy Respiratory exam: PRESENT: decreased breath sounds, prolonged expiratory phas, rales, rhonchi, symmetrical, unlabored. ABSENT: retraction, stridor, tachypnea Cardiovascular exam: PRESENT: RRR, +S1, +S2 Pulses: PRESENT: normal radial pulses GI/Abdominal exam: PRESENT: diminished bowel sounds, soft Extremities exam: ABSENT: calf tenderness, clubbing Musculoskeletal exam: ABSENT: ambulatory, deformity, dislocation Neurological exam: PRESENT: alert, awake Skin exam: PRESENT: dry, warm Results Laboratory Results: 03/22/18 06:52 03/22/18 06:52 03/21/18 03/21/18 03/22/18 14:18 14:18 06:30 WBC 13.2 H RBC 2.92 L Hgb 9.3 L Hct 27.5 L MCV 94 MCH 32.0 MCHC 34.0 RDW 14.1 H Plt Count 205 Seg Neutrophils % Lymphocytes % Monocytes % Eosinophils % Basophils % Absolute Neutrophils Absolute Lymphocytes Absolute Monocytes Absolute Eosinophils Absolute Basophils Carbonic Acid 1.06 HCO3/H2CO3 Ratio 21:1 ABG pH 7.44 ABG pCO2 35.2 ABG pO2 88.8 ABG HCO3 23.2 ABG O2 Saturation 97.1 ABG Base Excess -0.7 FiO2 2L Sodium Potassium Chloride Carbon Dioxide Anion Gap BUN Creatinine 0.46 L Est GFR ( Amer) > 60 Est GFR (Non-Af Amer) > 60 Glucose Calcium Phosphorus Magnesium 03/22/18 03/22/18 06:52 06:52 WBC 12.8 H RBC 2.81 L Hgb 8.9 L Hct 26.5 L MCV 94 MCH 31.6 MCHC 33.6 RDW 14.1 H Plt Count 254 Seg Neutrophils % 84.0 H Lymphocytes % 8.0 L Monocytes % 7.0 Eosinophils % 0.6 Basophils % 0.4 Absolute Neutrophils 10.8 H Absolute Lymphocytes 1.0 Absolute Monocytes 0.9 Absolute Eosinophils 0.1 Absolute Basophils 0.0 Carbonic Acid HCO3/H2CO3 Ratio ABG pH ABG pCO2 ABG pO2 ABG HCO3 ABG O2 Saturation ABG Base Excess FiO2 Sodium 138.0 Potassium 3.9 Chloride 103 Carbon Dioxide 24 Anion Gap 11 BUN 11 Creatinine 0.49 L Est GFR ( Amer) > 60 Est GFR (Non-Af Amer) > 60 Glucose 147 H Calcium 8.5 Phosphorus 4.0 Magnesium 1.9 03/22/18 06:52 NT-Pro-B Natriuret Pep 1060 H Impressions: Pelvis X-Ray 03/08/18 07:16 IMPRESSION: Acute left proximal femoral intertrochanteric fracture. Femur X-Ray 03/08/18 07:17 IMPRESSION: Acute left proximal femoral intertrochanteric fracture with moderate varus angulation Fluoroscopy 03/09/18 00:00 IMPRESSION: IMAGE(S) OBTAINED DURING PROCEDURE. Hip X-Ray 03/09/18 00:00 IMPRESSION: IMAGE(S) OBTAINED DURING PROCEDURE. Head CT 03/10/18 00:00 IMPRESSION: No acute intracranial changes. Frontal ethmoid and sphenoid sinusitis EVIDENCE OF ACUTE STROKE: No Chest CT 03/15/18 00:00 IMPRESSION: Multicentric pneumonia. Chest X-Ray 03/22/18 06:00 IMPRESSION: 1 Some improvement in the appearance of the lungs with a decrease in the bilateral perihilar airspace opacities. Persistent interstitial prominent markings, may represent pneumonia or edema. Small persistent left pleural effusion. Assessment & Plan - Diagnosis (1) Acute respiratory failure with hypoxia Is this a current diagnosis for this admission?: Yes Plan: Unchanged (2) Alcohol use Is this a current diagnosis for this admission?: Yes (3) Depression with anxiety Is this a current diagnosis for this admission?: Yes Plan: Extremely poor missed memory for short-term;May be secondary to chronic EtOH abuse (4) Hypertension Is this a current diagnosis for this admission?: Yes (5) Tobacco dependence Is this a current diagnosis for this admission?: Yes Plan: Discussed at length risk and dangers associated with continued tobacco use
--- NOTE | 2018-03-23 19:13 | PDOC PROGRESS REPORT ---
Subjective Progress Note for:: 03/23/18 Subjective:: Complains of rash vesicles over her entire body some which are painful Reason For Visit: LEFT HIP FRACTURE,ALCOHOL INTOXICATION Physical Exam Vital Signs: Temp Pulse Resp BP Pulse Ox 98.9 F 80 14 99/53 L 94 03/23/18 11:17 03/23/18 14:36 03/23/18 14:36 03/23/18 11:17 03/23/18 16:30 Pulse Oximeter Continuous Start: 03/16/18 09: 05 Freq: RTQ4 Status: Active Document 03/23/18 16:30 [facility] (Rec: 03/23/18 18:19 [facility] [email or web address]) Pulse Oximetry Assessment Oxygen Saturation (92-100) 94 Oxygen Delivery Method Room Air Fraction of Inspired Oxygen (FIO2) 21 Equipment Usage Equipment in Use Continuous SpO2 Machine # [id number] Intake & Output 03/22/18 03/23/18 03/24/18 06:59 06:59 06:59 Intake Total 1831 1673 1210 Output Total 5400 1925 Balance -0999 -252 1210 Weight 66.2 kg 60.2 kg General appearance: PRESENT: cooperative, disheveled, mild distress, thin Head exam: PRESENT: atraumatic, normocephalic Eye exam: PRESENT: conjunctiva pale, EOMI. ABSENT: nystagmus, periorbital swelling, scleral icterus Mouth exam: PRESENT: dry mucosa, neck supple, tongue midline Neck exam: ABSENT: carotid bruit, JVD, lymphadenopathy, thyromegaly, tracheal deviation, tracheostomy Respiratory exam: PRESENT: decreased breath sounds, prolonged expiratory phas, rales, rhonchi, symmetrical, unlabored. ABSENT: retraction, stridor, tachypnea Cardiovascular exam: PRESENT: RRR, +S1, +S2 Pulses: PRESENT: normal radial pulses GI/Abdominal exam: PRESENT: diminished bowel sounds, soft Extremities exam: PRESENT: other - Status post repair of left hip fracture. 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 Femur X-Ray 03/08/18 07:17 IMPRESSION: Acute left proximal femoral intertrochanteric fracture with moderate varus angulation Fluoroscopy 03/09/18 00:00 IMPRESSION: IMAGE(S) OBTAINED DURING PROCEDURE. Hip X-Ray 03/09/18 00:00 IMPRESSION: IMAGE(S) OBTAINED DURING PROCEDURE. Head CT 03/10/18 00:00 IMPRESSION: No acute intracranial changes. Frontal ethmoid and sphenoid sinusitis EVIDENCE OF ACUTE STROKE: No Chest CT 03/15/18 00:00 IMPRESSION: Multicentric pneumonia. Chest X-Ray 03/22/18 06:00 IMPRESSION: 1 Some improvement in the appearance of the lungs with a decrease in the bilateral perihilar airspace opacities. Persistent interstitial prominent markings, may represent pneumonia or edema. Small persistent left pleural effusion. Assessment & Plan - Diagnosis (1) Acute respiratory failure with hypoxia Is this a current diagnosis for this admission?: Yes (2) Alcohol use Is this a current diagnosis for this admission?: Yes (3) Depression with anxiety Is this a current diagnosis for this admission?: Yes (4) Hypertension Is this a current diagnosis for this admission?: Yes (5) Tobacco dependence Is this a current diagnosis for this admission?: Yes
== END 2018-03-23 18:50 | disposition short-term general hospital (02) | DRG 480 ==
LOC: ER 06:55 → EH 11:13 → 5 20:15 → ICU 03-13 18:08 → 3S 03-15 12:32
PROVIDERS: ADMIT Family Medicine; ATTEND Family Medicine
PROC: 0QS706Z Reposition Left Upper Femur with Intramedullary Internal Fixation Device, Open Approach (ICD-10-PCS; principal; 2018-03-09 17:30)
PROC: 5A09557 Assistance with Respiratory Ventilation, Greater than 96 Consecutive Hours, Continuous Positive Airway Pressure (ICD-10-PCS; 2018-03-13)
DX: S72.142A Displaced intertrochanteric fracture of left femur, initial encounter for closed fracture (principal); G93.40 Encephalopathy, unspecified; L51.1 Stevens-Johnson syndrome; J81.0 Acute pulmonary edema; J96.01 Acute respiratory failure with hypoxia; E87.0 Hyperosmolality and hypernatremia; W18.30XA Fall on same level, unspecified, initial encounter; E86.0 Dehydration; Y93.89 Activity, other specified; Y92.520 Airport as the place of occurrence of the external cause; F32.9 Major depressive disorder, single episode, unspecified; F41.1 Generalized anxiety disorder; I10 Essential (primary) hypertension; M13.812 Other specified arthritis, left shoulder; F17.200 Nicotine dependence, unspecified, uncomplicated; R74.0 Nonspecific elevation of levels of transaminase and lactic acid dehydrogenase [LDH]; G89.11 Acute pain due to trauma; F10.229 Alcohol dependence with intoxication, unspecified; T40.4X5A Adverse effect of other synthetic narcotics, initial encounter; Y92.239 Unspecified place in hospital as the place of occurrence of the external cause; D69.6 Thrombocytopenia, unspecified; E87.70 Fluid overload, unspecified; Z66 Do not resuscitate; D50.9 Iron deficiency anemia, unspecified; J44.9 Chronic obstructive pulmonary disease, unspecified; K59.00 Constipation, unspecified; E83.42 Hypomagnesemia; R21 Rash and other nonspecific skin eruption; T36.95XA Adverse effect of unspecified systemic antibiotic, initial encounter; Z90.49 Acquired absence of other specified parts of digestive tract; Z86.19 Personal history of other infectious and parasitic diseases; Z90.710 Acquired absence of both cervix and uterus; T50.2X5A Adverse effect of carbonic-anhydrase inhibitors, benzothiadiazides and other diuretics, initial encounter
CPT/HCPCS: 01230; 36415; 36600; 70450; 71045; 71046; 71250; 72170; 80048; 80053; 80069; 80076; 80202; 80307; 81001; 82565; 82803; 82962; 83540; 83605; 83735; 83880; 84100; 84132; 84443; 85025; 85027; 85610; 85730; 86850; 86900; 86901; 87040; 87070; 87077; 87186; 87205; 93005; 93010; 93306; 94660; 94667; 94668; 94762; 94799; 96374; 96375; 96376; 99285; C1713; J0131; J0330; J0690; J0692; J1644; J1650; J1756; J1885; J1940; J2060; J2250; J2310; J2405; J2704; J2920; J3010; J3370; J3480; J3490; J7050; J7060; J7120; J7512; S0119

== ENCOUNTER 2020-02-24 16:56 | Emergency (ER) | payer SELFPAY ==
--- NOTE | 2020-02-24 17:24 | ER Document Report ---
ED Medical Screen (RME) - General Chief Complaint: Nose Bleed Stated Complaint: NOSE BLEED Time Seen by Provider: 02/24/20 17:16 Mode of Arrival: Ambulatory Information source: Patient Notes: Patient states that she had a nosebleed that started at 8 AM and persisted until 2 PM. Patient states that she vomited 3 times large amounts of blood and has had black-colored stools. Patient states that she has had some abdominal pain earlier today that has improved at this time. Patient denies any lightheadedness or dizziness. I have greeted and performed a rapid initial assessment of this patient. A comprehensive ED assessment and evaluation of the patient, analysis of test results and completion of the medical decision making process will be conducted by additional ED providers. TRAVEL OUTSIDE OF THE [place] IN LAST 30 DAYS: No - Related Data Allergies/Adverse Reactions: oxycodone [Oxycodone] Adverse Reaction (Severe, Verified 11/06/14 14:33) nausea/vomiting Home Medications: Bupropion. Citalopram. Clonazepam. Cyanocobalamin. Ergocalciferol. Folic acid. Magnesium. Rizatriptan. Topiramate. Vitamin B12 Past Medical History - Social History Frequency of alcohol use: None Drug Abuse: None - Past Medical History Cardiac Medical History: Reports: Hx Hypertension - meds 14 yrs Denies: Hx Coronary Artery Disease, Hx Heart Attack Pulmonary Medical History: Reports: Hx Pneumonia - walking 1993 Denies: Hx Asthma, Hx Bronchitis, Hx COPD Neurological Medical History: Reports: Hx Migraine. Denies: Hx Cerebrovascular Accident, Hx Seizures Endocrine Medical History: Denies: Hx Diabetes Mellitus Type 2 Renal/ Medical History: Denies: Hx Peritoneal Dialysis GI Medical History: Denies: Hx Cirrhosis Musculoskeltal Medical History: Reports Hx Arthritis - hand/ left numb Psychiatric Medical History: Reports: Hx Depression Past Surgical History: Reports: Hx Section - x2, Hx Hysterectomy, Other - Cholecystectomy, abdominal wall hernia surgery - Immunizations Hx Diphtheria, Pertussis, Tetanus Vaccination: No Physical Exam - Vital signs Vitals: Temp Pulse Resp BP Pulse Ox 98.9 F 105 H 20 133/87 H 97 02/24/20 17:02 02/24/20 17:02 02/24/20 17:02 02/24/20 17:02 02/24/20 17:02 - General General appearance: Appears well, Alert Notes: Dried blood inside left nostril Course - Vital Signs Vital signs: Temp Pulse Resp BP Pulse Ox 98.9 F 105 H 20 133/87 H 97 02/24/20 17:02 02/24/20 17:02 02/24/20 17:02 02/24/20 17:02 02/24/20 17:02
[2020-02-24 17:41] LABS: ABSOLUTE LYMPHOCYTES (AUTO) 1.3 10^3/uL (0.5-4.7); ABSOLUTE MONOCYTES (AUTO) 0.5 10^3/uL (0.1-1.4); ABSOLUTE NEUT (AUTO) 4.1 10^3/uL (1.7-8.2); BASOPHILS % (AUTO) 0.5 % (0-2); EOSINOPHILS % (AUTO) 0.4 % (0-6); HEMATOCRIT 40.2 % (36.0-47.0); HEMOGLOBIN 13.9 g/dL (12.0-15.5); MEAN CORPUSCULAR HEMOGLOBIN 32.6 pg (27.0-33.4); MEAN CORPUSCULAR HGB CONC 34.7 g/dL (32.0-36.0); MEAN CORPUSCULAR VOLUME 94 fl (80-97); MONOCYTES % (AUTO) 8.4 % (3-13); PLATELET COUNT 149 10^3/uL (150-450); RED BLOOD COUNT 4.28 10^6/uL (3.72-5.28); RED CELL DISTRIBUTION WIDTH 13.3 % (11.5-14.0); SEGMENTED NEUTROPHILS % (AUTO) 68.7 % (42-78); TOTAL CELLS COUNTED % (AUTO) 100 %
[2020-02-24 18:01] LABS: INTERNATIONAL RATION (INR) 1.34; PROTHROMBIN TIME 16.7 SEC (11.4-15.4)
[2020-02-24 18:07] LABS: ALBUMIN 4.1 g/dL (3.5-5.0); ALKALINE PHOSPHATASE 64 U/L (38-126); ANION GAP 8 (5-19); ASPARTATE AMINO TRANSFERASE 41 U/L (14-36); BILIRUBIN,TOTAL 1.3 mg/dL (0.2-1.3); BLOOD UREA NITROGEN 21 mg/dL (7-20); CARBON DIOXIDE 23 mmol/L (22-30); CHLORIDE 108 mmol/L (98-107); GLUCOSE 115 mg/dL (75-110); POTASSIUM 4.3 mmol/L (3.6-5.0); TOTAL PROTEIN 6.9 g/dL (6.3-8.2)
--- NOTE | 2020-02-24 18:09 | ER Document Report ---
HPI - HPI Time Seen by Provider: 02/24/20 17:16 Pain Level: Denies Notes: Patient is a 64-year-old female presenting to the emergency department with chief complaint of nosebleed. Patient reports she had a nosebleed from approximately 8:00 this morning until 2 PM this afternoon. Patient denies history of nosebleeds. She is not on any blood thinners. She denies any trauma or injury to her nose. - REPRODUCTIVE Reproductive: DENIES: : Past Medical History - General Information source: Patient - Social History Smoking Status: Former Smoker Frequency of alcohol use: None Drug Abuse: None Family History: CAD, COPD, Hyperlipidemia, Malignancy Patient has suicidal ideation: No Patient has homicidal ideation: No - Past Medical History Cardiac Medical History: Reports: Hx Hypertension - meds 15 yrs Denies: Hx Coronary Artery Disease, Hx Heart Attack Pulmonary Medical History: Reports: Hx Pneumonia - walking 1993 Denies: Hx Asthma, Hx Bronchitis, Hx COPD Neurological Medical History: Reports: Hx Migraine. Denies: Hx Cerebrovascular Accident, Hx Seizures Endocrine Medical History: Denies: Hx Diabetes Mellitus Type 2 Renal/ Medical History: Denies: Hx Peritoneal Dialysis GI Medical History: Denies: Hx Cirrhosis Musculoskeletal Medical History: Reports Hx Arthritis - hand/ left numb Psychiatric Medical History: Reports: Hx Depression Past Surgical History: Reports: Hx Section - x2, Hx Hysterectomy, Other - Cholecystectomy, abdominal wall hernia surgery - Immunizations Hx Diphtheria, Pertussis, Tetanus Vaccination: No Vertical Provider Document - CONSTITUTIONAL Notes: PHYSICAL EXAMINATION: GENERAL: Well-appearing, well-nourished and in no acute distress. HEAD: Atraumatic, normocephalic. EYES: Pupils equal round extraocular movements intact, conjunctiva are normal. ENT: Nares patent, no septal hematoma noted. No active epistaxis noted. Dried blood noted in the left nare. No blood noted in the posterior oropharynx. NECK: Normal range of motion LUNGS: No respiratory distress Musculoskeletal: Normal range of motion NEUROLOGICAL: Normal speech, normal gait. PSYCH: Normal mood, normal affect. SKIN: Warm, Dry, normal turgor, no rashes or lesions noted. - INFECTION CONTROL TRAVEL OUTSIDE OF THE [place] IN LAST 30 DAYS: No Course - Re-evaluation Re-evalutation: Labs unremarkable as ordered by triage provider. Patient is not on any anticoagulation. She has not had an active nosebleed since her arrival to the emergency department. She will be discharged home in stable condition at this time. - Vital Signs Vital signs: Temp Pulse Resp BP Pulse Ox 98.9 F 105 H 20 133/87 H 97 02/24/20 17:02 02/24/20 17:02 02/24/20 17:02 02/24/20 17:02 02/24/20 17:02 - Laboratory Result Diagrams: 02/24/20 17:29 02/24/20 17:29 Laboratory results interpreted by me: 02/24/20 17:29 Plt Count 149 L Discharge - Discharge Clinical Impression: Epistaxis Condition: Stable Disposition: HOME, SELF-CARE Additional Instructions: Nosebleed Instructions There is a significant chance of re-bleeding following a nosebleed. Proper care makes this less likely. Do not touch the nose for 24 hours. Do not blow the nose forcefully for one week. After 24 hours, gently apply Vaseline ointment to both nostrils with the tip of a finger, three times a day, for one week. It's normal to have a bloody mucous discharge for a few days. If active bleeding recurs, blow all the blood from the nose, then sit quietly and pinch the nose as firmly as possible for 10 minutes. If this does not stop the bleeding, return for further care. If packing was left in the nose and it starts to come out of the nostril, either tuck it back in or cut it off. Don't pull it out. Return for recheck and removal of the packing when instructed. Persons with frequent nosebleeds should avoid aspirin (unless prescribed for another reason). Humidity in the bedroom, and petroleum jelly applied to the nostrils at night may help. Referrals: JAQUAN YOON NP [Primary Care Provider] - Follow up as needed
[2020-02-24 18:52] VITALS: BP 147/78
== END 2020-02-24 18:52 | disposition home or self-care (01) ==
LOC: ER 16:56
DX: R04.0 Epistaxis (principal); I10 Essential (primary) hypertension; Z87.891 Personal history of nicotine dependence
CPT/HCPCS: 36415; 80053; 85025; 85610; 85730; 99283

== ENCOUNTER 2020-07-29 11:04 | Inpatient (IN) | payer MEDICARE, BC ==
--- NOTE | 2020-07-29 12:05 | RADIOLOGY REPORT (SQ) ---
EXAM DESCRIPTION: HIP RIGHT AP/LATERAL IMAGES COMPLETED DATE/TIME: 07/29/2020 11:53 am REASON FOR STUDY: Fall, Right Hip Pain COMPARISON: Pelvis radiographs 03/08/2018 NUMBER OF VIEWS: Two views. TECHNIQUE: AP and frog-leg view of the right hip. LIMITATIONS: None. FINDINGS: MINERALIZATION: Normal. PRIMARY HIP: There is a displaced and comminuted basicervical fracture of the right femoral neck. OPPOSITE HIP: Intramedullary rbynn with gamma nail fixation of the left femoral neck is noted. SOFT TISSUES: No findings. OTHER: No other significant finding. IMPRESSION: Comminuted and displaced basicervical fracture of the right femoral neck. TECHNICAL DOCUMENTATION: JOB ID: [id number] [email or web address]- All Rights Reserved Reading location - IP/workstation name: [email or web address]
[2020-07-29] MEDS ORDERED: MORPHINE SULFATE 10 MG/ML INJ IV ONE (12:11)
--- NOTE | 2020-07-29 12:17 | ER Document Report ---
ED Hip Pain/Injury - General Chief Complaint: Hip Pain Stated Complaint: FALL HIP PAIN Time Seen by Provider: 07/29/20 12:16 Primary Care Provider: JAQUAN YOON NP [Primary Care Provider] - Follow up as needed TRAVEL OUTSIDE OF THE [place] IN LAST 30 DAYS: No - HPI Notes: 64-year-old female presents with hip pain. Patient states that she had a fall last night. She states that she was walking through her bedroom, she is just gotten up to get a drink of water, she states that she slipped on something on the floor and lost her balance. She first fell into the window, then into a piece of furniture, finally landing onto her right hip. She has had pain since then. She reports that she has tried to ambulate. She does not believe that she hit her head though she states she is feeling out of it. Patient consumes alcohol regularly though denies intoxication last night at 10 fall. - Related Data Allergies/Adverse Reactions: vancomycin Allergy (Severe, Verified 02/24/20 17:23) Kaushal Venkat syndrome oxycodone [Oxycodone] Adverse Reaction (Severe, Verified 11/06/14 14:33) nausea/vomiting Past Medical History - General Information source: Patient - Social History Smoking Status: Former Smoker Chew tobacco use (# tins/day): No Frequency of alcohol use: Occasional Drug Abuse: None Family History: CAD, COPD, Hyperlipidemia, Malignancy - Past Medical History Cardiac Medical History: Reports: Hx Hypertension - meds 15 yrs Denies: Hx Coronary Artery Disease, Hx Heart Attack Pulmonary Medical History: Reports: Hx Pneumonia - walking 1993 Denies: Hx Asthma, Hx Bronchitis, Hx COPD Neurological Medical History: Reports: Hx Migraine. Denies: Hx Cerebrovascular Accident, Hx Seizures Endocrine Medical History: Denies: Hx Diabetes Mellitus Type 2 Renal/ Medical History: Denies: Hx Peritoneal Dialysis GI Medical History: Denies: Hx Cirrhosis Musculoskeletal Medical History: Reports Hx Arthritis - hand/ left numb Psychiatric Medical History: Reports: Hx Depression Past Surgical History: Reports: Hx Section - x2, Hx Cholecystectomy, Hx Hysterectomy, Other - Cholecystectomy, abdominal wall hernia surgery - Immunizations Hx Diphtheria, Pertussis, Tetanus Vaccination: No Review of Systems - Review of Systems Constitutional: denies: Fever EENT: denies: Blurred vision Cardiovascular: denies: Chest pain Respiratory: denies: Short of breath Gastrointestinal: denies: Abdominal pain Genitourinary: No symptoms reported Female Genitourinary: No symptoms reported Musculoskeletal: Joint pain Skin: No symptoms reported Hematologic/Lymphatic: No symptoms reported Neurological/Psychological: denies: Lost consciousness Physical Exam - Vital signs Vitals: Temp 98.6 F 07/29/20 11:04 - General General appearance: Appears well - HEENT Head: Normocephalic, Atraumatic Extraocular movements intact: Yes Pupils: PERRL - Respiratory Chest status: Nontender Breath sounds: Normal - Cardiovascular Rhythm: Regular Heart sounds: Normal auscultation Pulses: Normal: Dorsalis pedis Normal capillary refill: Yes - Abdominal Distension: No distension Tenderness: Nontender - Extremities Notes: Tenderness to right hip, there is mild shortening of the right leg and internal rotation. Palpated bilateral upper extremities and right lower extremity, no areas of tenderness found. There is no midline C-spine tenderness. - Neurological Neuro grossly intact: Yes Cognition: Normal Orientation: AAOx4 [place] Coma Scale Eye Opening: Spontaneous [place] Coma Scale Verbal: Oriented [place] Coma Scale Motor: Obeys Commands [place] Coma Scale Total: 15 Motor strength normal: LUE, RUE, LLE, RLE Sensory: Normal - Psychological Associated symptoms: Normal affect - Skin Skin Temperature: Warm Course - Re-evaluation Re-evalutation: 64-year-old female presents with right hip pain following a fall. It sounds mechanical based on her description. She has physical exam findings suggestive of a fracture, she is neurovascularly intact to the right leg. An x-ray obtained through the triage process confirms that she has a femoral neck fracture. She only orthopedics consultation. She denies hitting her head and has no midline C-spine tenderness, however given that she has broken her femur will obtain CT head and neck to rule out intracranial or cervical spine injuries. Check basic labs. Morphine for pain. 07/29/20 12:[address] Espinal, will consult and rec hospitalist admission 07/29/20 15:47 CT head and C-spine negative for acute injury. Patient is to be admitted to the hospitalist service. - Vital Signs Vital signs: Temp Pulse Resp BP Pulse Ox 98.6 F 18 102/72 98 07/29/20 11:28 07/29/20 14:01 07/29/20 14:00 07/29/20 14:01 - Laboratory Result Diagrams: 07/29/20 13:46 07/29/20 13:46 Laboratory results interpreted by me: 07/29/20 07/29/20 07/29/20 13:46 13:46 13:46 RBC 3.56 L Hgb 8.8 L Hct 27.1 L MCV 76 L MCH 24.8 L RDW 17.2 H Plt Count 117 L Lymph % (Auto) 6.2 L Absolute Neuts (auto) 8.5 H Seg Neutrophils % 82.5 H PT 16.1 H Chloride 109 H Carbon Dioxide 18 L BUN 21 H Glucose 147 H - Diagnostic Test Radiology reviewed: Image reviewed, Reports reviewed Discharge - Discharge Clinical Impression: Femoral neck fracture Qualifiers: Encounter type: initial encounter Fracture type: closed Laterality: right Qualified Code(s): S72.001A - Fracture of unspecified part of neck of right femur, initial encounter for closed fracture Disposition: ADMITTED INPATIENT Referrals: JAQUAN YOON NP [Primary Care Provider] - Follow up as needed
--- NOTE | 2020-07-29 13:17 | PDOC CONSULTATION ---
Consultation Consult Date: 07/29/20 Provider Consulted: DONTAE HOBBS History of Present Illness Admission Date/PCP: JAQUAN YOON NP Patient complains of: Right hip pain History of Present Illness: YEVGENIY ODONNELL is a 64 year old female who sustained a fall onto her right hip earlier today when she tripped. States pain is worse with any attempted. Headache or loss of consciousness. Pain worse with any attempted motion or weightbearing. Denies numbness or tingling. Pain is 10/10. Past Medical History Cardiac Medical History: Reports: Hypertension - meds 15 yrs Denies: Coronary Artery Disease, Myocardial Infarction Pulmonary Medical History: Reports: Pneumonia - walking 1993 Denies: Asthma, Bronchitis, Chronic Obstructive Pulmonary Disease (COPD) Neurological Medical History: Reports: Migraine Denies: Seizures Endocrine Medical History: Denies: Diabetes Mellitus Type 2 GI Medical History: Denies: Cirrhosis Musculoskeltal Medical History: Reports: Arthritis - hand/ left numb Psychiatric Medical History: Reports: Depression Hematology: Denies: Anemia Past Surgical History Past Surgical History: Reports: Section - x2, Cholecystectomy, Hysterectomy, Other - Cholecystectomy, abdominal wall hernia surgery Social History Smoking Status: Former Smoker Electronic Cigarette use?: No Frequency of Alcohol Use: Occasional Hx Recreational Drug Use: No Hx Prescription Drug Abuse: No Family History Family History: CAD, COPD, Hyperlipidemia, Malignancy Parental Family History Reviewed: No Children Family History Reviewed: No Sibling(s) Family History Reviewed.: No Medication/Allergy Home Medications: Bupropion HCl [Wellbutrin Xl 150 mg 24hr Tablet] 150 mg PO DAILY 03/08/18 Citalopram Hydrobromide [Celexa 20 mg Tablet] 20 mg PO QHS 03/08/18 Rizatriptan Benzoate [Maxalt] 10 mg PO ASDIR PRN 03/08/18 Topiramate [Topamax] 150 mg PO QHS 03/08/18 Acetaminophen [Tylenol 325 mg Tablet] 650 mg PO Q6HP PRN tablet 03/23/18 Ascorbic Acid [Vitamin C 500 mg Tablet] 500 mg PO BIDPCBS tablet 03/23/18 Bisacodyl [Dulcolax 10 mg Supp.rect] 10 mg [place] DAILYP PRN supp.rect 03/23/18 Diazepam [Valium 2 mg Tablet] 2 mg PO Q6HP PRN tablet 03/23/18 Docusate Sodium [Colace 100 mg Capsule] 100 mg PO BID capsule 03/23/18 Enoxaparin Sodium [Lovenox Inj 40 mg/0.4 ml Disp.syrin] 40 mg SUBCUT DAILY disp.syrin 03/23/18 Ferrous Sulfate [Feosol 325 mg Tablet] 325 mg PO BIDPCBS tablet 03/23/18 Ipratropium/Albuterol Sulfate [Duoneb 3 ml Ampul] 3 ml NEB RTQ4HP PRN vial.neb 03/23/18 Lactobacillus Acidophilus [Bacid 250 mg Tablet] 500 mg PO BID tab 03/23/18 Lansoprazole [Prevacid 30 mg Odt Tablet] 30 mg PO Q6AM tab.rap.dr 03/23/18 Magnesium Oxide [Mag-Ox 400 mg Tablet] 400 mg PO QPM tablet 03/23/18 Normal Saline [Saline Flush 2.5 ml Monoject Prefil Syrin] 2.5 ml IV Q8 disp.syrin 03/23/18 Ondansetron [Zofran Odt 4 mg Tablet] 4 mg PO Q6HP PRN tab.rapdis 03/23/18 Polyvinyl Alcohol [Liquitears 1.4% Ophth Soln 15 ml] 1 drop OD Q4HP PRN bottle 03/23/18 Sennosides/Docusate 8.6-50 mg [Senna Plus Tablet] 2 each PO QHS tablet 03/23/18 Thiamine HCl [Thiamine 100 mg Tablet] 100 mg PO DAILY tablet 03/23/18 Allergies/Adverse Reactions: vancomycin Allergy (Severe, Verified 02/24/20 17:23) Kaushal Venkat syndrome oxycodone [Oxycodone] Adverse Reaction (Severe, Verified 11/06/14 14:33) nausea/vomiting Review of Systems Constitutional: ABSENT: chills, fever(s), headache(s), weight gain, weight loss Eyes: ABSENT: visual disturbances Ears: ABSENT: hearing changes Cardiovascular: ABSENT: chest pain, dyspnea on exertion, edema, orthropnea, palpitations Respiratory: ABSENT: cough, hemoptysis Gastrointestinal: ABSENT: abdominal pain, constipation, diarrhea, hematemesis, hematochezia, nausea, vomiting Genitourinary: ABSENT: dysuria, hematuria Musculoskeletal: PRESENT: as per HPI Integumentary: ABSENT: rash, wounds Neurological: ABSENT: abnormal gait, abnormal speech, confusion, dizziness, focal weakness, syncope Psychiatric: ABSENT: anxiety, depression, homidical ideation, suicidal ideation Endocrine: ABSENT: cold intolerance, heat intolerance, menstrual abnormalities, polydipsia, polyuria Hematologic/Lymphatic: ABSENT: easy bleeding, easy bruising, lymphadenopathy Physical Exam Vital Signs: Temp Pulse Resp BP Pulse Ox 98.6 F 07/29/20 11:04 Intake & Output 07/28/20 07/29/20 07/30/20 06:59 06:59 06:59 Weight 49.895 kg General appearance: PRESENT: no acute distress, well-developed, well-nourished Head exam: PRESENT: atraumatic, normocephalic Eye exam: PRESENT: conjunctiva pink, EOMI, PERRLA. ABSENT: scleral icterus Ear exam: PRESENT: normal external ear exam Mouth exam: PRESENT: moist, tongue midline Neck exam: PRESENT: full ROM. ABSENT: carotid bruit, JVD, lymphadenopathy, thyromegaly Respiratory exam: PRESENT: unlabored Cardiovascular exam: PRESENT: RRR. ABSENT: diastolic murmur, rubs, systolic murmur Pulses: PRESENT: normal dorsalis pedis pul, +2 pedal pulses bilateral Vascular exam: PRESENT: normal capillary refill GI/Abdominal exam: PRESENT: normal bowel sounds, soft. ABSENT: distended, guarding, mass, organolmegaly, rebound, tenderness Rectal exam: PRESENT: deferred Musculoskeletal exam: PRESENT: other - Right hip: Positive logroll. Moderate thigh swelling without change, weakness with dorsiflexion. No sensory deficits. No calf tenderness. No evidence of open wound. Neurological exam: PRESENT: alert, awake, oriented to person, oriented to place, oriented to time, oriented to situation, CN II-XII grossly intact. ABSENT: motor sensory deficit Psychiatric exam: PRESENT: appropriate affect, normal mood. ABSENT: homicidal ideation, suicidal ideation Skin exam: PRESENT: dry, intact, warm. ABSENT: cyanosis, rash Results Impressions: Hip/Pelvis X-Ray 07/29/20 11:32 IMPRESSION: Comminuted and displaced basicervical fracture of the right femoral neck. Status: Image reviewed by me - Comminuted right intratrochanteric hip fracture with varus displacement. Assessment & Plan - Diagnosis (1) Intertrochanteric fracture of femur Qualifiers: Encounter type: initial encounter Fracture type: closed Fracture alignment: displaced Laterality: right Qualified Code(s): S72.141A - Displaced intertrochanteric fracture of right femur, initial encounter for closed fracture Is this a current diagnosis for this admission?: Yes Plan: Patient sustained right intertrochanteric hip fracture with varus collapse. Today we discussed treatment options including operative versus nonoperative intervention given the severity of patient's fracture would recommend proceeding with operative treatment which includes open reduction fixation intramedullary nail versus sliding hip screw. Risk and benefits have been explained patient verbalized understanding consented for surgical procedure. Risks include anesthetic complications, excessive bleeding, infection, injury to surrounding nerves, vessels and tendons, bruising, healing difficulties, scar formation, hardware complication, posttraumatic arthritis and any unforseen complication.
--- NOTE | 2020-07-29 13:37 | RADIOLOGY REPORT (SQ) ---
EXAM DESCRIPTION: CT HEAD WITHOUT IMAGES COMPLETED DATE/TIME: 07/29/2020 1:21 pm REASON FOR STUDY: fall, eval trauma COMPARISON: CT brain 03/10/2018 TECHNIQUE: Axial images acquired through the brain without intravenous contrast. Images reviewed wi th bone, brain and subdural windows. Additional sagittal and coronal reconstructions were generated. Images stored on PACS. All CT scanners at this facility use dose modulation, iterative reconstruction, and/or weight based d osing when appropriate to reduce radiation dose to as low as reasonably achievable (ALARA). [facility]: Dose Right [facility]: CareDose [facility]: Dose Right [facility]: Teradose 4D [facility]: sli.do RADIATION DOSE: CT Rad equipment meets quality standard of care and radiation dose reduction techniq ues were employed. CTDIvol: 53.2 mGy. DLP: 1070 mGy-cm. mGy. LIMITATIONS: None. FINDINGS: VENTRICLES: Normal size and contour. CEREBRUM: No masses. No hemorrhage. No midline shift. No evidence for acute infarction. Normal gra y/white matter differentiation. No areas of low density in the white matter. CEREBELLUM: No masses. No hemorrhage. No alteration of density. No evidence for acute infarction. EXTRAAXIAL SPACES: No fluid collections. No masses. ORBITS AND GLOBE: No intra- or extraconal masses. Normal contour of globe without masses. CALVARIUM: No fracture. PARANASAL SINUSES: Opacification of the left sphenoid sinus from sinusitis. This similar compared to 2018 SOFT TISSUES: No mass or hematoma. OTHER: No other significant finding. IMPRESSION: No acute findings EVIDENCE OF ACUTE STROKE: NO. COMMENT: Quality ID # [id number]: Final reports with documentation of one or more dose reduction techniques (e.g., Automated exposure control, adjustment of the mA and/or kV according to patient size, use of iterative reconstruction technique) TECHNICAL DOCUMENTATION: JOB ID: [id number] 2010 [employer]- All Rights Reserved Reading location - IP/workstation name: [id number]
--- NOTE | 2020-07-29 13:41 | RADIOLOGY REPORT (SQ) ---
EXAM DESCRIPTION: CT CERVICAL SPINE WITHOUT IMAGES COMPLETED DATE/TIME: 07/29/2020 1:21 pm REASON FOR STUDY: fall, eval trauma COMPARISON: 02/10/2014 CT cervical spine Cervical spine radiographs 02/10/2014 TECHNIQUE: Axial images acquired through the cervical spine without intravenous contrast. Images re viewed with lung, soft tissue and bone windows. Reconstructed coronal and sagittal MPR images review ed. Images stored on PACS. All CT scanners at this facility use dose modulation, iterative reconstruction, and/or weight based d osing when appropriate to reduce radiation dose to as low as reasonably achievable (ALARA). [facility]: Dose Right [facility]: CareDose [facility]: Dose Right [facility]: Teradose 4D [facility]: [employer] RADIATION DOSE: CT Rad equipment meets quality standard of care and radiation dose reduction techniq ues were employed. CTDIvol: 15.8 mGy. DLP: 343 mGy-cm. mGy. LIMITATIONS: Motion artifact FINDINGS: ALIGNMENT: Stable anterolisthesis os C4 over C5 related to advanced facet arthropathy. Re versal of cervical curvature from C4 through T1 from multilevel degenerative disc and facet disease. Similar compared to 2013 MINERALIZATION: Normal. VERTEBRAL BODIES: No fractures or dislocation. DISCS: There is multilevel significant degenerative disc change. No high-grade central canal stenosi s. Multilevel moderate bilateral foraminal narrowing from facet arthropathy FACETS, LATERAL MASSES, POSTERIOR ELEMENTS: No fractures. No dislocation. No acute findings. Multi level facet arthropathy HARDWARE: None in the spine. VISUALIZED RIBS: No fractures. LUNG APICES AND SOFT TISSUES: Calcified left carotid bifurcation OTHER: No other significant finding. IMPRESSION: Diffuse degenerative changes and facet arthropathy. No acute fracture or malalignment Mild motion artifact TECHNICAL DOCUMENTATION: JOB ID: [id number] Quality ID # [id number]: Final reports with documentation of one or more dose reduction techniques (e.g., Au tomated exposure control, adjustment of the mA and/or kV according to patient size, use of iterative reconstruction technique) 2010 [employer]- All Rights Reserved Reading location - IP/workstation name: [id number]
[2020-07-29 14:33] LABS: INTERNATIONAL RATION (INR) 1.28; PROTHROMBIN TIME 16.1 SEC (11.4-15.4)
[2020-07-29 14:34] LABS: ABSOLUTE LYMPHOCYTES (AUTO) 0.6 10^3/uL (0.5-4.7); ABSOLUTE MONOCYTES (AUTO) 1.2 10^3/uL (0.1-1.4); ABSOLUTE NEUT (AUTO) 8.5 10^3/uL (1.7-8.2); BASOPHILS % (AUTO) 0.1 % (0-2); HEMATOCRIT 27.1 % (36.0-47.0); HEMOGLOBIN 8.8 g/dL (12.0-15.5); LYMPHOCYTES % (AUTO) 6.2 % (13-45); MEAN CORPUSCULAR HEMOGLOBIN 24.8 pg (27.0-33.4); MEAN CORPUSCULAR HGB CONC 32.6 g/dL (32.0-36.0); MEAN CORPUSCULAR VOLUME 76 fl (80-97); MONOCYTES % (AUTO) 11.2 % (3-13); PLATELET COUNT 117 10^3/uL (150-450); RED BLOOD COUNT 3.56 10^6/uL (3.72-5.28); RED CELL DISTRIBUTION WIDTH 17.2 % (11.5-14.0); SEGMENTED NEUTROPHILS % (AUTO) 82.5 % (42-78); TOTAL CELLS COUNTED % (AUTO) 100 %; WHITE BLOOD COUNT 10.3 10^3/uL (4.0-10.5)
[2020-07-29 14:40] LABS: ALCOHOL < 10 mg/dL (NONE DETECTED); ANION GAP 11 (5-19); BLOOD UREA NITROGEN 21 mg/dL (7-20); CALCIUM 8.5 mg/dL (8.4-10.2); CARBON DIOXIDE 18 mmol/L (22-30); CHLORIDE 109 mmol/L (98-107); GLUCOSE 147 mg/dL (75-110); POTASSIUM 4.5 mmol/L (3.6-5.0)
[2020-07-29] MEDS ORDERED: ONDANSETRON HCL INJ/PF 4 MG/2 ML SDV IV PRN (15:52)
[2020-07-29] MEDS ORDERED: ACETAMINOPHEN 325 MG TABLET PO PRN (15:52)
[2020-07-29] MEDS ORDERED: NORMAL SALINE 1000 ML 1,000 ML IV PRN (15:52)
[2020-07-29] MEDS ORDERED: LORAZEPAM INJ 2 MG/1 ML VIAL IV PRN (15:56)
--- NOTE | 2020-07-29 16:04 | PDOC H&P ---
History of Present Illness Admission Date/PCP: JAQUAN YOON NP Patient complains of: Came to the emergency room after a fall History of Present Illness: YEVGENIY ODONNELL is a 64 year old female history of COPD, anxiety disorder, depression, left hip fracture status post surgery, hypertension came to the emergency room with complaints of fall. As per the patient she tripped and fell started having right hip pain came to the emergency room for further evaluation. Work-up indicates a right hip intertrochanteric fracture. Ortho consult was done Dr. Espinal already saw the patient in the ER. Patient agreed to stay in the hospital for further management, she wants to be DNR/DNI. Past Medical History Cardiac Medical History: Reports: Hypertension - meds 15 yrs Denies: Coronary Artery Disease, Myocardial Infarction Pulmonary Medical History: Reports: Pneumonia - walking 1993 Denies: Asthma, Bronchitis, Chronic Obstructive Pulmonary Disease (COPD) Neurological Medical History: Reports: Migraine Denies: Seizures Endocrine Medical History: Denies: Diabetes Mellitus Type 2 GI Medical History: Denies: Cirrhosis Musculoskeltal Medical History: Reports: Arthritis - hand/ left numb Psychiatric Medical History: Reports: Depression Hematology: Denies: Anemia Past Surgical History Past Surgical History: Reports: Section - x2, Cholecystectomy, Hysterectomy, Other - Cholecystectomy, abdominal wall hernia surgery Social History Smoking Status: Former Smoker Electronic Cigarette use?: No Frequency of Alcohol Use: Occasional Hx Recreational Drug Use: No Hx Prescription Drug Abuse: No - Advance Directive Resuscitation Status: Do Not Resuscitate Family History Family History: CAD, COPD, Hyperlipidemia, Malignancy Parental Family History Reviewed: Yes - Hypertension Children Family History Reviewed: Yes Sibling(s) Family History Reviewed.: Yes Medication/Allergy Home Medications: Bupropion HCl [Wellbutrin Xl 150 mg 24hr Tablet] 150 mg PO DAILY 03/08/18 Citalopram Hydrobromide [Celexa 20 mg Tablet] 20 mg PO QHS 03/08/18 Rizatriptan Benzoate [Maxalt] 10 mg PO ASDIR PRN 03/08/18 Topiramate [Topamax] 150 mg PO QHS 03/08/18 Acetaminophen [Tylenol 325 mg Tablet] 650 mg PO Q6HP PRN tablet 03/23/18 Ascorbic Acid [Vitamin C 500 mg Tablet] 500 mg PO BIDPCBS tablet 03/23/18 Bisacodyl [Dulcolax 10 mg Supp.rect] 10 mg [place] DAILYP PRN supp.rect 03/23/18 Diazepam [Valium 2 mg Tablet] 2 mg PO Q6HP PRN tablet 03/23/18 Docusate Sodium [Colace 100 mg Capsule] 100 mg PO BID capsule 03/23/18 Enoxaparin Sodium [Lovenox Inj 40 mg/0.4 ml Disp.syrin] 40 mg SUBCUT DAILY disp.syrin 03/23/18 Ferrous Sulfate [Feosol 325 mg Tablet] 325 mg PO BIDPCBS tablet 03/23/18 Ipratropium/Albuterol Sulfate [Duoneb 3 ml Ampul] 3 ml NEB RTQ4HP PRN vial.neb 03/23/18 Lactobacillus Acidophilus [Bacid 250 mg Tablet] 500 mg PO BID tab 03/23/18 Lansoprazole [Prevacid 30 mg Odt Tablet] 30 mg PO Q6AM tab.rap.dr 03/23/18 Magnesium Oxide [Mag-Ox 400 mg Tablet] 400 mg PO QPM tablet 03/23/18 Normal Saline [Saline Flush 2.5 ml Monoject Prefil Syrin] 2.5 ml IV Q8 disp.syrin 03/23/18 Ondansetron [Zofran Odt 4 mg Tablet] 4 mg PO Q6HP PRN tab.rapdis 03/23/18 Polyvinyl Alcohol [Liquitears 1.4% Ophth Soln 15 ml] 1 drop OD Q4HP PRN bottle 03/23/18 Sennosides/Docusate 8.6-50 mg [Senna Plus Tablet] 2 each PO QHS tablet 03/23/18 Thiamine HCl [Thiamine 100 mg Tablet] 100 mg PO DAILY tablet 03/23/18 Allergies/Adverse Reactions: vancomycin Allergy (Severe, Verified 02/24/20 17:23) Kaushal Venkat syndrome oxycodone [Oxycodone] Adverse Reaction (Severe, Verified 11/06/14 14:33) nausea/vomiting Review of Systems Constitutional: PRESENT: as per HPI, fatigue, weakness. ABSENT: headache(s), night sweats Eyes: ABSENT: visual disturbances Ears: ABSENT: hearing changes Nose, Mouth, and Throat: ABSENT: sore throat Cardiovascular: ABSENT: orthropnea, palpitations Respiratory: ABSENT: dyspnea, hemoptysis Gastrointestinal: ABSENT: dysphagia, heartburn Genitourinary: ABSENT: dysuria Musculoskeletal: PRESENT: muscle weakness, other - Right hip pain. ABSENT: deformity Neurological: ABSENT: abnormal gait, abnormal speech, confusion, dizziness, f ocal weakness, syncope Psychiatric: ABSENT: anxiety, depression, homidical ideation, suicidal ideation Physical Exam Vital Signs: Temp Pulse Resp BP Pulse Ox 98.6 F 18 102/72 98 07/29/20 11:28 07/29/20 14:01 07/29/20 14:00 07/29/20 14:01 Intake & Output 07/28/20 07/29/20 07/30/20 06:59 06:59 06:59 Weight 49.895 kg General appearance: PRESENT: cooperative, disheveled, mild distress, thin Head exam: PRESENT: atraumatic Eye exam: PRESENT: PERRLA Ear exam: PRESENT: normal external ear exam Mouth exam: PRESENT: neck supple Neck exam: ABSENT: carotid bruit, JVD, lymphadenopathy, thyromegaly Respiratory exam: PRESENT: decreased breath sounds Cardiovascular exam: PRESENT: RRR. ABSENT: diastolic murmur, rubs, systolic murmur GI/Abdominal exam: PRESENT: normal bowel sounds, soft. ABSENT: distended, guarding, mass, organolmegaly, rebound, tenderness Rectal exam: PRESENT: deferred Extremities exam: PRESENT: other - Right leg was shorter compared to left leg. Musculoskeletal exam: PRESENT: tenderness, other - Of severe pain in the right hip Neurological exam: PRESENT: alert, awake, oriented to person, oriented to place, oriented to time, oriented to situation, CN II-XII grossly intact. ABSENT: motor sensory deficit Psychiatric exam: PRESENT: appropriate affect, normal mood. ABSENT: homicidal ideation, suicidal ideation Results Laboratory Results: 07/29/20 13:46 07/29/20 13:46 07/29/20 07/29/20 07/29/20 13:46 13:46 13:46 WBC 10.3 RBC 3.56 L Hgb 8.8 L Hct 27.1 L MCV 76 L MCH 24.8 L MCHC 32.6 RDW 17.2 H Plt Count 117 L Seg Neutrophils % 82.5 H Sodium 138.0 Potassium 4.5 Chloride 109 H Carbon Dioxide 18 L Anion Gap 11 BUN 21 H Creatinine 0.79 Est GFR ( Amer) > 60 Glucose 147 H Calcium 8.5 Blood Type Cancelled Antibody Screen 07/29/20 13:46 WBC RBC Hgb Hct MCV MCH MCHC RDW Plt Count Seg Neutrophils % Sodium Potassium Chloride Carbon Dioxide Anion Gap BUN Creatinine Est GFR ( Amer) Glucose Calcium Blood Type O POSITIVE Antibody Screen NEGATIVE Impressions: Hip/Pelvis X-Ray 07/29/20 11:32 IMPRESSION: Comminuted and displaced basicervical fracture of the right femoral neck. Cervical Spine CT 07/29/20 12:28 IMPRESSION: Diffuse degenerative changes and facet arthropathy. No acute fracture or malalignment Mild motion artifact Head CT 07/29/20 12:28 IMPRESSION: No acute findings EVIDENCE OF ACUTE STROKE: NO. Assessment and Plan - Diagnosis (1) Intertrochanteric fracture of femur Qualifiers: Encounter type: initial encounter Fracture type: closed Fracture alignment: displaced Laterality: right Qualified Code(s): S72.141A - Displaced intertrochanteric fracture of right femur, initial encounter for closed fracture Is this a current diagnosis for this admission?: Yes Plan: 07/29/2020-patient admitted with a fall found to have a right hip intertrochanteric fracture with varus deviation Ortho consult was done patient will be placed on medical floor CODE STATUS DNR/DNI started on IV fluids, IV pain medications GI prophylaxis initiated. DVT prophylaxis with SCDs initiated. Not on prophylactic dose of DVT prophylaxis because patient may go for surgery. Sickle therapy consult Occupational Therapy consult requested. (2) DNR (do not resuscitate) Is this a current diagnosis for this admission?: No Plan: 07/29/2020-patient wants to be a DNR/DNI. (3) Alcohol dependence Is this a current diagnosis for this admission?: No Plan: 07/29/2020-patient is denying recent history of alcohol abuse. (4) Fall Qualifiers: Encounter type: sequela Qualified Code(s): W19.XXXS - Unspecified fall, sequela Is this a current diagnosis for this admission?: Yes Plan: 07/29/2020-patient admitted with a fall with right hip fracture. Ortho consult was done. Found to have intertrochanteric fracture. (5) HTN (hypertension) Is this a current diagnosis for this admission?: No Plan: 07/29/2020-patient has history of chronic essential hypertension to start her on IV hydralazine 10 mg every 6 hours as needed for systolic blood pressure more than 170. - Time Anticipated Discharge Disposition: Long Term Facility Anticipated Discharge Timeframe: within 72 hours
[2020-07-29] MEDS: MORPHINE SULFATE 10 MG/ML INJ IV PRN (18:26)
[2020-07-29 19:24] LABS: URINE AMPHETAMINES SCREEN NEGATIVE; URINE BARBITURATES SCREEN NEGATIVE; URINE BENZODIAZEPINES SCREEN NEGATIVE; URINE COCAINE SCREEN NEGATIVE; URINE MARIJUANA (THC) SCREEN UNCONFIRMED POSITIVE; URINE METHADONE SCREEN NEGATIVE; URINE PHENCYCLIDINE SCREEN NEGATIVE
[2020-07-29] MEDS ORDERED: DEXTROSE 50%-WATER 25 GM/50 ML DISP.SYRIN IV PRN ×2 (20:40)
[2020-07-29] MEDS ORDERED: GLUCAGON,HUMAN RECOMB 1 MG INJ SUBCUT PRN (20:40)
[2020-07-29] MEDS ORDERED: DEXTROSE 40% GEL 15 GM TUBE PO PRN ×2 (20:40)
--- NOTE | 2020-07-29 20:49 | EKG REPORT ---
SEVERITY:- ABNORMAL ECG - PACEMAKER SPIKES LIKE ARTIFACTS SINUS RHYTHM PROBABLE LEFT ATRIAL ABNORMALITY PROBABLE INFERIOR INFARCT, AGE INDETERMINATE LATERAL LEADS ARE ALSO INVOLVED : Confirmed by: Sofy Garg MD 29-Jul-2020 20:49:26
--- NOTE | 2020-07-29 20:50 | EKG REPORT ---
SEVERITY:- ABNORMAL ECG - SINUS RHYTHM PROBABLE LEFT ATRIAL ABNORMALITY PROBABLE INFERIOR INFARCT, AGE INDETERMINATE NONSPECIFIC T ABNORMALITIES, ANT-LAT LEADS BORDERLINE PROLONGED QT INTERVAL : Confirmed by: Sofy Garg MD 29-Jul-2020 20:49:32
[2020-07-29] MEDS: PANTOPRAZOLE SODIUM 40 MG VIAL IV SCH (21:05)
--- NOTE | 2020-07-30 07:13 | EKG REPORT ---
SEVERITY:- ABNORMAL ECG - SINUS RHYTHM PROBABLE LEFT ATRIAL ABNORMALITY INFERIOR INFARCT, AGE INDETERMINATE NONSPECIFIC T ABNORMALITIES, ANT-LAT LEADS : Confirmed by: Rio Breen MD 30-Jul-2020 07:12:40
[2020-07-30] MEDS: MORPHINE SULFATE 10 MG/ML INJ IV PRN ×3 (07:35→22:10)
[2020-07-30] MEDS ORDERED: CEFAZOLIN 2 GM/D5W RTU 2 GM/50 ML RTUPB IV PRN (08:00)
[2020-07-30] MEDS ORDERED: TRANEXAMIC ACID INJ/PF 1,000 MG/10 ML SDV IV PRN (08:01)
[2020-07-30] MEDS ORDERED: RINGERS SOLUTION,LACTATED 1,000 ML IV PRN ×2 (08:09→18:40)
[2020-07-30 08:32] LABS: INTERNATIONAL RATION (INR) 1.34; PROTHROMBIN TIME 16.8 SEC (11.4-15.4)
[2020-07-30 08:36] LABS: ABSOLUTE LYMPHOCYTES (AUTO) 1.4 10^3/uL (0.5-4.7); ABSOLUTE MONOCYTES (AUTO) 1.2 10^3/uL (0.1-1.4); ABSOLUTE NEUT (AUTO) 5.6 10^3/uL (1.7-8.2); BASOPHILS % (AUTO) 0.5 % (0-2); EOSINOPHILS % (AUTO) 0.2 % (0-6); HEMATOCRIT 23.6 % (36.0-47.0); MEAN CORPUSCULAR HEMOGLOBIN 24.6 pg (27.0-33.4); MEAN CORPUSCULAR HGB CONC 32.2 g/dL (32.0-36.0); MEAN CORPUSCULAR VOLUME 76 fl (80-97); PLATELET COUNT 113 10^3/uL (150-450); RED BLOOD COUNT 3.09 10^6/uL (3.72-5.28); RED CELL DISTRIBUTION WIDTH 17.8 % (11.5-14.0); SEGMENTED NEUTROPHILS % (AUTO) 68.3 % (42-78); TOTAL CELLS COUNTED % (AUTO) 100 %; WHITE BLOOD COUNT 8.3 10^3/uL (4.0-10.5)
[2020-07-30 08:57] LABS: ALBUMIN 3.5 g/dL (3.5-5.0); ALKALINE PHOSPHATASE 59 U/L (38-126); ANION GAP 8 (5-19); ASPARTATE AMINO TRANSFERASE 31 U/L (14-36); BILIRUBIN,DIRECT 0.2 mg/dL (0.0-0.4); BILIRUBIN,TOTAL 1.1 mg/dL (0.2-1.3); BLOOD UREA NITROGEN 30 mg/dL (7-20); CARBON DIOXIDE 18 mmol/L (22-30); CHLORIDE 109 mmol/L (98-107); CHOLESTEROL 117.94 mg/dL (0-200); GLUCOSE 129 mg/dL (75-110); HEMOGLOBIN 7.6 g/dL (12.0-15.5); POTASSIUM 3.9 mmol/L (3.6-5.0); TOTAL PROTEIN 5.9 g/dL (6.3-8.2); TRIGLYCERIDES 57 mg/dL (<150)
[2020-07-30 09:10] LABS: NT PRO BNP 89 pg/mL (<125)
[2020-07-30 09:12] LABS: DIRECT LDL 49 mg/dL (<100)
[2020-07-30 09:13] LABS: TROPONIN I < 0.012 ng/mL
[2020-07-30] MEDS ORDERED: NORMAL SALINE 250 ML IV PRN ×2 (10:04)
--- NOTE | 2020-07-30 10:04 | PDOC PROGRESS REPORT ---
Subjective Progress Note for:: 07/30/20 Subjective:: 64 year old female history of COPD, anxiety disorder, depression, left hip fracture status post surgery, hypertension came to the emergency room with complaints of fall. As per the patient she tripped and fell started having right hip pain came to the emergency room for further evaluation. Work-up indicates a right hip intertrochanteric fracture. Ortho consult was done Dr. Espinal already saw the patient in the ER. Patient agreed to stay in the hospital for further management, she wants to be DNR/DNI. [id number]-old female admitted with right hip intertrochanteric fracture she is going to the OR today. No acute events in the last 24 hours afebrile. Reason For Visit: RIGHT HIP FRACTURE Physical Exam Vital Signs: Temp Pulse Resp BP Pulse Ox 98.5 F 92 18 133/68 H 94 07/30/20 08:19 07/30/20 08:19 07/30/20 08:19 07/30/20 08:19 07/30/20 08:19 Intake & Output 07/29/20 07/30/20 07/31/20 06:59 06:59 06:59 Intake Total 100 Output Total 810 Balance -710 Weight 59.8 kg General appearance: PRESENT: no acute distress, cooperative, well-developed Head exam: PRESENT: atraumatic Eye exam: PRESENT: PERRLA Teeth exam: PRESENT: poor dentation Neck exam: ABSENT: carotid bruit, JVD, lymphadenopathy, thyromegaly Respiratory exam: PRESENT: decreased breath sounds Cardiovascular exam: PRESENT: RRR. ABSENT: diastolic murmur, rubs, systolic murmur GI/Abdominal exam: PRESENT: normal bowel sounds, soft. ABSENT: distended, guarding, mass, organolmegaly, rebound, tenderness Rectal exam: PRESENT: deferred Extremities exam: PRESENT: full ROM, other - Right lower leg is shorter, inverted compared to left leg.. ABSENT: calf tenderness, clubbing, pedal edema Neurological exam: PRESENT: alert, awake, oriented to person, oriented to place, oriented to time, oriented to situation, CN II-XII grossly intact. ABSENT: motor sensory deficit Psychiatric exam: PRESENT: appropriate affect, normal mood. ABSENT: homicidal ideation, suicidal ideation Results Laboratory Results: 07/30/20 07:50 07/30/20 07:50 07/29/20 07/29/20 07/29/20 13:46 13:46 13:46 WBC 10.3 RBC 3.56 L Hgb 8.8 L Hct 27.1 L MCV 76 L MCH 24.8 L MCHC 32.6 RDW 17.2 H Plt Count 117 L Seg Neutrophils % 82.5 H Sodium 138.0 Potassium 4.5 Chloride 109 H Carbon Dioxide 18 L Anion Gap 11 BUN 21 H Creatinine 0.79 Est GFR ( Amer) > 60 Glucose 147 H Calcium 8.5 Magnesium Total Bilirubin AST Alkaline Phosphatase Total Protein Albumin Triglycerides Cholesterol LDL Cholesterol Direct VLDL Cholesterol HDL Cholesterol Lipase TSH Blood Type Cancelled Antibody Screen 07/29/20 07/30/20 07/30/20 13:46 07:50 07:50 WBC 8.3 RBC 3.09 L Hgb 7.6 L Hct 23.6 L MCV 76 L MCH 24.6 L MCHC 32.2 RDW 17.8 H Plt Count 113 L Seg Neutrophils % 68.3 Sodium 134.8 L Potassium 3.9 Chloride 109 H Carbon Dioxide 18 L Anion Gap 8 BUN 30 H Creatinine 0.89 Est GFR ( Amer) > 60 Glucose 129 H Calcium 8.0 L Magnesium 2.1 Total Bilirubin 1.1 AST 31 Alkaline Phosphatase 59 Total Protein 5.9 L Albumin 3.5 Triglycerides 57 Cholesterol 117.94 LDL Cholesterol Direct 49 VLDL Cholesterol 11.0 HDL Cholesterol 62 Lipase 89.6 TSH Blood Type O POSITIVE Antibody Screen NEGATIVE 07/30/20 07:50 WBC RBC Hgb Hct MCV MCH MCHC RDW Plt Count Seg Neutrophils % Sodium Potassium Chloride Carbon Dioxide Anion Gap BUN Creatinine Est GFR ( Amer) Glucose Calcium Magnesium Total Bilirubin AST Alkaline Phosphatase Total Protein Albumin Triglycerides Cholesterol LDL Cholesterol Direct VLDL Cholesterol HDL Cholesterol Lipase TSH 2.93 Blood Type Antibody Screen 07/29/20 07/29/20 07/30/20 17:20 21:30 07:50 Troponin I < 0.012 < 0.012 < 0.012 NT-Pro-B Natriuret Pep 89 Impressions: Hip/Pelvis X-Ray 07/29/20 11:32 IMPRESSION: Comminuted and displaced basicervical fracture of the right femoral neck. Cervical Spine CT 07/29/20 12:28 IMPRESSION: Diffuse degenerative changes and facet arthropathy. No acute fracture or malalignment Mild motion artifact Head CT 07/29/20 12:28 IMPRESSION: No acute findings EVIDENCE OF ACUTE STROKE: NO. Assessment and Plan - Diagnosis (1) Intertrochanteric fracture of femur Qualifiers: Encounter type: initial encounter Fracture type: closed Fracture alignment: displaced Laterality: right Qualified Code(s): S72.141A - Displaced intertrochanteric fracture of right femur, initial encounter for cl osed fracture Is this a current diagnosis for this admission?: Yes Plan: 07/29/2020-patient admitted with a fall found to have a right hip inter trochanteric fracture with varus deviation Ortho consult was done patient will be placed on medical floor CODE STATUS DNR/DNI started on IV fluids, IV pain medications GI prophylaxis initiated. DVT prophylaxis with SCDs initiated. Not on prophylactic dose of DVT prophylaxis because patient may go for surgery. Sickle therapy consult Occupational Therapy consult requested. 07/30/2020-patient admitted with a fall found to have right intertrochanteric fracture Ortho consult was done with Dr. Espinal he is taking her to the OR today. (2) DNR (do not resuscitate) Is this a current diagnosis for this admission?: No Plan: 07/29/2020-patient wants to be a DNR/DNI. (3) Alcohol dependence Is this a current diagnosis for this admission?: No Plan: 07/29/2020-patient is denying recent history of alcohol abuse. (4) Fall Qualifiers: Encounter type: sequela Qualified Code(s): W19.XXXS - Unspecified fall, sequela Is this a current diagnosis for this admission?: Yes Plan: 07/29/2020-patient admitted with a fall with right hip fracture. Ortho consult was done. Found to have intertrochanteric fracture. (5) HTN (hypertension) Is this a current diagnosis for this admission?: No Plan: 07/29/2020-patient has history of chronic essential hypertension to start her on IV hydralazine 10 mg every 6 hours as needed for systolic blood pressure more than 170. 07/30/2020-blood pressure today's 133/68. Stable. (6) Anemia Is this a current diagnosis for this admission?: No Plan: 07/30/2020-patient hemoglobin today 7.6 on admission is 8.8. Drop in hemoglobin may be secondary to IV fluid therapy. Plan is to type and screen and to hold 2 units of PRBC for possible intra-/postop transfusion. - Time Anticipated [facility]charge [facility]position[facility] Anticipated Discharge Timeframe: within 72 hours
[2020-07-30] MEDS: PANTOPRAZOLE SODIUM 40 MG VIAL IV SCH ×2 (10:18→22:10)
[2020-07-30] MEDS ORDERED: MORPHINE SULFATE 10 MG/ML INJ IV ONE (13:00)
--- NOTE | 2020-07-30 16:32 | RADIOLOGY REPORT (SQ) ---
EXAM DESCRIPTION: CHEST SINGLE VIEW IMAGES COMPLETED DATE/TIME: 07/30/2020 3:35 pm REASON FOR STUDY: preop COMPARISON: None. EXAM PARAMETERS: NUMBER OF VIEWS: One view. TECHNIQUE: Single frontal radiographic view of the chest acquired. RADIATION DOSE: NA LIMITATIONS: None. FINDINGS: LUNGS AND PLEURA: Linear left mid lung and bibasilar opacities possibly atelectasis or sca rring. Markedly improved aeration from prior exam. No new airspace disease, pleural effusion or pne umothorax. MEDIASTINUM AND HILAR STRUCTURES: No masses. Contour normal. HEART AND VASCULAR STRUCTURES: Heart normal in size. Normal vasculature. BONES: No acute findings. HARDWARE: None in the chest. OTHER: No other significant finding. IMPRESSION: Mild linear bibasilar opacities, possibly atelectasis or scarring. TECHNICAL DOCUMENTATION: JOB ID: [id number] 2010 [employer]- All Rights Reserved Reading location - IP/workstation name: [email or web address]
[2020-07-30] MEDS ORDERED: MEPERIDINE HCL/PF INJ 25 MG/1 ML DISP.SYRIN IV PRN (16:33)
[2020-07-30] MEDS ORDERED: FENTANYL CITRATE INJ/PF 100 MCG/2 ML AMPUL IV PRN ×3 (16:33)
[2020-07-30] MEDS ORDERED: MORPHINE SULFATE 10 MG/ML INJ IV PRN (16:33)
[2020-07-30] MEDS ORDERED: PROMETHAZINE HCL INJ 25 MG/1 ML VIAL IV PRN ×2 (16:33)
[2020-07-30] MEDS ORDERED: DIPHENHYDRAMINE HCL 50 MG/ML VIAL IV PRN (16:33)
[2020-07-30] MEDS ORDERED: MIDAZOLAM 2 MG/2 ML INJ ONE (16:44)
[2020-07-30] MEDS ORDERED: FENTANYL CITRATE INJ/PF 100 MCG/2 ML AMPUL ONE (16:44)
[2020-07-30] MEDS ORDERED: ROPIVACAINE HCL 0.5% INJ/PF (5 MG/1 ML) 30 ML SDV ONE (16:44)
[2020-07-30] MEDS ORDERED: CEFAZOLIN INJ 1 GM VIAL ONE (17:34)
[2020-07-30] MEDS ORDERED: TRANEXAMIC ACID INJ/PF 1,000 MG/10 ML SDV ONE (17:35)
--- NOTE | 2020-07-30 18:00 | Operative Report ---
Operative Report DATE OF SURGERY: 07/30/20 PREOPERATIVE DIAGNOSIS: Right intertrochanteric femur fracture OPERATION: Open reduction internal fixation right intratrochanteric femur fracture SURGEON: JOYCE MORTENSEN ANESTHESIA: LMAC ESTIMATED BLOOD LOSS: 75 PROCEDURE: With the patient supine on the fracture table the right lower extremities manipulated under fluoroscopic guidance to affect a near anatomic reduction. Subsequently extremities prepped and draped in a sterile fashion. A pin is placed percutaneously through the skin into the greater trochanter and then down the femoral canal to the supracondylar region of the knee. Nail length is measured to be 340 mm. The femur is then prepared using flexible reaming until a 12 mm reamer is seated. Next a [employer] gamma 3 nail, 11 mm x 125 degrees x 340 mm was advanced over the ball-tipped guide brynn. A 100 mm proximal interlock is placed. Under fluoroscopic guidance a 40 mm distal interlock is placed. The wound is irrigated and closure is erupted Vicryl followed by erlin. Sterile dressings were applied and the patient was returned to the PACU in satisfactory condition.
[2020-07-30] MEDS ORDERED: PROPOFOL INJ 200 MG/20 ML VIAL IV ONE (18:17)
--- NOTE | 2020-07-30 18:52 | RADIOLOGY REPORT (SQ) ---
EXAM DESCRIPTION: NO CHG FLUORO; FEMUR RIGHT IMAGES COMPLETED DATE/TIME: 07/30/2020 6:18 pm REASON FOR STUDY: ORIF HIP IM NAIL COMPARISON: None. FLUOROSCOPY TIME: 0.8 minutes 4 Images saved to PACS LIMITATIONS: None. PROCEDURE: ORIF right hip FINDINGS: Images from fluoro document the procedure. IMPRESSION: ORIF right hip. Refer to operative note for further information. COMMENT: PQRS 6045F: Fluoroscopy time of the procedure is documented in the report. TECHNICAL DOCUMENTATION: JOB ID: [id number] 2010 [employer]- All Rights Reserved Reading location - IP/workstation name: [email or web address]
--- NOTE | 2020-07-30 18:52 | RADIOLOGY REPORT (SQ) ---
EXAM DESCRIPTION: NO CHG FLUORO; FEMUR RIGHT IMAGES COMPLETED DATE/TIME: 07/30/2020 6:18 pm REASON FOR STUDY: ORIF HIP IM NAIL COMPARISON: None. FLUOROSCOPY TIME: 0.8 minutes 4 Images saved to PACS LIMITATIONS: None. PROCEDURE: ORIF right hip FINDINGS: Images from fluoro document the procedure. IMPRESSION: ORIF right hip. Refer to operative note for further information. COMMENT: PQRS 6045F: Fluoroscopy time of the procedure is documented in the report. TECHNICAL DOCUMENTATION: JOB ID: [id number] 2010 [employer]- All Rights Reserved Reading location - IP/workstation name: [email or web address]
[2020-07-30] MEDS ORDERED: HYDROCODONE/ACETAMINOPHEN 5-325 MG TABLET PO PRN (22:00)
[2020-07-31] MEDS ORDERED: ONDANSETRON 4 MG TAB.RAPDIS SL PRN
[2020-07-31] MEDS ORDERED: ONDANSETRON 4 MG TAB.RAPDIS SL SCH
[2020-07-31] MEDS: CEFAZOLIN SODIUM 2 GM in DEXTROSE 5%-WATER 100 ML IV SCH ×2 (02:00→09:40)
[2020-07-31] MEDS: MORPHINE SULFATE 10 MG/ML INJ IV PRN ×2 (05:10→14:31)
--- NOTE | 2020-07-31 06:19 | PDOC PROGRESS REPORT ---
Subjective Progress Note for:: 07/31/20 Reason For Visit: RIGHT HIP FRACTURE 64-year-old white female now postop day 1 status post ORIF of a right intratrochanteric femur fracture. Uneventful postoperative course. Sent patient somewhat confused this morning in terms of where she lives versus where her daughter lives. Patient reports much less pain than previous surgery Physical Exam Vital Signs: Temp Pulse Resp BP Pulse Ox 37.1 C 94 17 149/87 H 93 07/31/20 00:25 07/31/20 00:25 07/31/20 00:25 07/31/20 00:25 07/31/20 00:25 Intake & Output 07/29/20 07/30/20 07/31/20 06:59 06:59 06:59 Intake Total 100 2485 Output Total 810 695 Balance -710 1790 Weight 59.8 kg Physical Exam: Disheveled appearing middle-aged white female somewhat confused General appearance: PRESENT: no acute distress Head exam: PRESENT: normocephalic Respiratory exam: PRESENT: unlabored Cardiovascular exam: PRESENT: RRR Pulses: PRESENT: +1 pedal pulses bilateral Vascular exam: PRESENT: normal capillary refill GI/Abdominal exam: PRESENT: soft Rectal exam: PRESENT: deferred Extremities exam: PRESENT: other - Right lower extremity dressings clean dry and intact. Leg length cubicle. Distal neurovascular examination is intact. Results Laboratory Results: 07/30/20 07:50 07/30/20 07:50 07/29/20 07/30/20 07/30/20 13:46 07:50 07:50 WBC 8.3 RBC 3.09 L Hgb 7.6 L Hct 23.6 L MCV 76 L MCH 24.6 L MCHC 32.2 RDW 17.8 H Plt Count 113 L Seg Neutrophils % 68.3 Sodium 134.8 L Potassium 3.9 Chloride 109 H Carbon Dioxide 18 L Anion Gap 8 BUN 30 H Creatinine 0.89 Est GFR ( Amer) > 60 Glucose 129 H Calcium 8.0 L Magnesium 2.1 Total Bilirubin 1.1 AST 31 Alkaline Phosphatase 59 Total Protein 5.9 L Albumin 3.5 Triglycerides 57 Cholesterol 117.94 LDL Cholesterol Direct 49 VLDL Cholesterol 11.0 HDL Cholesterol 62 Lipase 89.6 TSH Blood Type O POSITIVE Antibody Screen NEGATIVE 07/30/20 07:50 WBC RBC Hgb Hct MCV MCH MCHC RDW Plt Count Seg Neutrophils % Sodium Potassium Chloride Carbon Dioxide Anion Gap BUN Creatinine Est GFR ( Amer) Glucose Calcium Magnesium Total Bilirubin AST Alkaline Phosphatase Total Protein Albumin Triglycerides Cholesterol LDL Cholesterol Direct VLDL Cholesterol HDL Cholesterol Lipase TSH 2.93 Blood Type Antibody Screen 07/29/20 07/29/20 07/30/20 17:20 21:30 07:50 Troponin I < 0.012 < 0.012 < 0.012 NT-Pro-B Natriuret Pep 89 07/30/20 12:58 Troponin I < 0.012 NT-Pro-B Natriuret Pep Impressions: Hip/Pelvis X-Ray 07/29/20 11:32 IMPRESSION: Comminuted and displaced basicervical fracture of the right femoral neck. Cervical Spine CT 07/29/20 12:28 IMPRESSION: Diffuse degenerative changes and facet arthropathy. No acute fracture or malalignment Mild motion artifact Head CT 07/29/20 12:28 IMPRESSION: No acute findings EVIDENCE OF ACUTE STROKE: NO. Chest X-Ray 07/30/20 00:00 IMPRESSION: Mild linear bibasilar opacities, possibly atelectasis or scarring. Femur X-Ray 07/30/20 00:00 IMPRESSION: ORIF right hip. Refer to operative note for further information. Fluoroscopy 07/30/20 00:00 IMPRESSION: ORIF right hip. Refer to operative note for further information. Status: Imported from PACS Assessment & Plan - Diagnosis (1) Anemia Qualifiers: Other causes of anemia: acute posthemorrhagic Is this a current diagnosis for this admission?: Yes Plan: Patient relatively anemic preoperatively received 2 units of packed red blood cells. Postop hematocrit pending (2) Intertrochanteric fracture of femur Qualifiers: Encounter type: initial encounter Fracture type: closed Fracture alignment: displaced Laterality: right Qualified Code(s): S72.141A - Displaced intertrochanteric fracture of right femur, initial encounter for closed fracture Is this a current diagnosis for this admission?: Yes Plan: Mobilize with physical therapy and a touchdown weightbearing restriction on the right lower extremity. I discussed the situation with her daughter yesterday who lives in [place]. She was requesting [facility] facility placement in [place]. Social work has been consulted for such. - Time Time Spent with patient: 15-24 minutes Anticipated discharge: SNF Anticipated DC Timeframe: when bed available
[2020-07-31 07:48] LABS: ABSOLUTE LYMPHOCYTES (AUTO) 0.8 10^3/uL (0.5-4.7); ABSOLUTE NEUT (AUTO) 4.8 10^3/uL (1.7-8.2); BASOPHILS % (AUTO) 0.3 % (0-2); EOSINOPHILS % (AUTO) 0.2 % (0-6); HEMOGLOBIN 8.3 g/dL (12.0-15.5); LYMPHOCYTES % (AUTO) 12.8 % (13-45); MEAN CORPUSCULAR HEMOGLOBIN 26.9 pg (27.0-33.4); MEAN CORPUSCULAR HGB CONC 33.3 g/dL (32.0-36.0); MONOCYTES % (AUTO) 14.5 % (3-13); RED BLOOD COUNT 3.09 10^6/uL (3.72-5.28); RED CELL DISTRIBUTION WIDTH 19.2 % (11.5-14.0); SEGMENTED NEUTROPHILS % (AUTO) 72.2 % (42-78); TOTAL CELLS COUNTED % (AUTO) 100 %; WHITE BLOOD COUNT 6.6 10^3/uL (4.0-10.5)
[2020-07-31 07:55] LABS: ALBUMIN 2.8 g/dL (3.5-5.0); ALKALINE PHOSPHATASE 50 U/L (38-126); ANION GAP 8 (5-19); ASPARTATE AMINO TRANSFERASE 36 U/L (14-36); BILIRUBIN,DIRECT 0.3 mg/dL (0.0-0.4); BILIRUBIN,TOTAL 1.5 mg/dL (0.2-1.3); BLOOD UREA NITROGEN 16 mg/dL (7-20); CALCIUM 7.7 mg/dL (8.4-10.2); CARBON DIOXIDE 19 mmol/L (22-30); CHLORIDE 105 mmol/L (98-107); GLUCOSE 113 mg/dL (75-110); POTASSIUM 3.7 mmol/L (3.6-5.0); TOTAL PROTEIN 4.8 g/dL (6.3-8.2)
[2020-07-31 08:15] LABS: MEAN CORPUSCULAR VOLUME 81 fl (80-97); PLATELET COUNT 78 10^3/uL (150-450)
[2020-07-31] MEDS: ASPIRIN 81 MG TABLET, ENT COATED PO SCH (09:40)
[2020-07-31] MEDS: PANTOPRAZOLE SODIUM 40 MG VIAL IV SCH ×2 (09:40→22:36)
--- NOTE | 2020-07-31 13:57 | PDOC PROGRESS REPORT ---
Subjective Progress Note for:: 07/31/20 Subjective:: Issues with short-term memory. She admits to an emotional breakdown with crying earlier today. There is psychological stress as well as the physiologic stress. Hopefully the treatment for the urinary infection will help her feel better. Reason For Visit: RIGHT HIP FRACTURE Physical Exam Vital Signs: Temp Pulse Resp BP Pulse Ox 99.1 F 88 20 160/88 H 96 07/31/20 10:00 07/31/20 08:00 07/31/20 08:00 07/31/20 08:00 07/31/20 08:00 Intake & Output 07/30/20 07/31/20 08/01/20 06:59 06:59 06:59 Intake Total 100 2845 Output Total 810 1015 Balance -710 1830 Weight 59.8 kg 60.2 kg General appearance: PRESENT: cooperative, mild distress, well-developed Ear exam: PRESENT: normal external ear exam. ABSENT: bleeding, drainage Mouth exam: PRESENT: moist, tongue midline Respiratory exam: PRESENT: clear to auscultation mariana, symmetrical, unlabored. ABSENT: rales, rhonchi, tachypnea, wheezes Cardiovascular exam: PRESENT: RRR, +S1, +S2, systolic murmur - 3/6 GI/Abdominal exam: PRESENT: normal bowel sounds, soft. ABSENT: tenderness Rectal exam: PRESENT: deferred Gentrourinary exam: ABSENT: indwelling catheter Extremities exam: PRESENT: other - Right upper leg swelling from surgery. ABSENT: pedal edema Musculoskeletal exam: PRESENT: ambulatory - Will start toe-touch weightbearing Neurological exam: PRESENT: alert, awake, oriented to person, oriented to place, other - Patient with poor concentration and focus. She kept losing her train of thought. This certainly could be a sign of depression. Psychiatric exam: PRESENT: flat affect. ABSENT: agitated, anxious Results Laboratory Results: 07/31/20 06:39 07/31/20 06:39 07/29/20 07/31/20 07/31/20 13:46 06:39 06:39 WBC 6.6 RBC 3.09 L Hgb 8.3 L Hct 25.0 L MCV 81 D MCH 26.9 L MCHC 33.3 RDW 19.2 H Plt Count 78 L Seg Neutrophils % 72.2 Sodium 131.9 L Potassium 3.7 Chloride 105 Carbon Dioxide 19 L Anion Gap 8 BUN 16 Creatinine 0.61 Est GFR ( Amer) > 60 Glucose 113 H Calcium 7.7 L Magnesium 1.8 Total Bilirubin 1.5 H AST 36 Alkaline Phosphatase 50 Total Protein 4.8 L Albumin 2.8 L Blood Type O POSITIVE Antibody Screen NEGATIVE 07/29/20 07/29/20 07/30/20 17:20 21:30 07:50 Troponin I < 0.012 < 0.012 < 0.012 NT-Pro-B Natriuret Pep 89 07/30/20 12:58 Troponin I < 0.012 NT-Pro-B Natriuret Pep Impressions: Hip/Pelvis X-Ray 07/29/20 11:32 IMPRESSION: Comminuted and displaced basicervical fracture of the right femoral neck. Cervical Spine CT 07/29/20 12:28 IMPRESSION: Diffuse degenerative changes and facet arthropathy. No acute fracture or malalignment Mild motion artifact Head CT 07/29/20 12:28 IMPRESSION: No acute findings EVIDENCE OF ACUTE STROKE: NO. Chest X-Ray 07/30/20 00:00 IMPRESSION: Mild linear bibasilar opacities, possibly atelectasis or scarring. Femur X-Ray 07/30/20 00:00 IMPRESSION: ORIF right hip. Refer to operative note for further information. Fluoroscopy 07/30/20 00:00 IMPRESSION: ORIF right hip. Refer to operative note for further information. Assessment and Plan - Diagnosis (1) Intertrochanteric fracture of femur Qualifiers: Encounter type: initial encounter Fracture type: closed Fracture alignment: displaced Laterality: right Qualified Code(s): S72.141A - Displaced intertrochanteric fracture of right femur, initial encounter for closed fracture Is this a current diagnosis for this admission?: Yes Plan: Surgically repaired by Dr. Gorman. Patient is beginning physical therapy. Would benefit from longterm facility for short-term rehab. (2) Urinary tract infection Qualifiers: Urinary tract infection type: acute cystitis Hematuria presence: without hematuria Qualified Code(s): N30.00 - Acute cystitis without hematuria Is this a current diagnosis for this admission?: Yes Plan: Likely an acute cystitis. Urine is growing greater than 100,000 CFU per milliliter gram-negative bacilli. I started ceftriaxone and await the final culture results. (3) HTN (hypertension) Qualifiers: Hypertension type: unspecified Qualified Code(s): I10 - Essential (primary) hypertension Is this a current diagnosis for this admission?: Yes Plan: Blood pressures are still elevated. It certainly could be due to the pain of fracture and surgery. No medications yet. Continue to monitor. (4) Anemia Qualifiers: Other causes of anemia: acute posthemorrhagic Is this a current diagnosis for this admission?: Yes Plan: Patient has received 2 units of packed red blood cells. Continue to monitor hemoglobin. (5) Thrombocytopenia Is this a current diagnosis for this admission?: Yes Plan: Platelet count has dropped to 78. She was only 117 on admission. No evidence of bleeding. We will continue to monitor. (6) Depression with anxiety Is this a current diagnosis for this admission?: Yes Plan: The patient was on several medications. I have resumed her Lexapro, amitriptyline and Topamax. Her feeling poorly today could be a result of missing her Lexapro. Will resume medications and monitor closely. (7) Fall Qualifiers: Encounter type: sequela Qualified Code(s): W19.XXXS - Unspecified fall, sequela Is this a current diagnosis for this admission?: Yes Plan: Fall at home was the basis for the right hip intertrochanteric fracture. The patient is working with physical therapy. (8) Alcohol dependence Qualifiers: Substance use status: in remission Qualified Code(s): F10.21 - Alcohol dependence, in remission Is this a current diagnosis for this admission?: Yes Plan: Patient reports no recent alcohol use. Continue to monitor. - Time Time Spent with patient: 15-24 minutes Medications reviewed and adjusted accordingly: Yes Anticipated Discharge Disposition: Long Term Facility Anticipated Discharge Timeframe: within 72 hours
[2020-07-31] MEDS: CEFTRIAXONE 1 GM/D5W RTU 1 GM/50 ML RTUPB IV SCH (14:43)
[2020-07-31] MEDS ORDERED: PROMETHAZINE HCL 25 MG TABLET PO PRN (19:19)
[2020-07-31] MEDS: AMITRIPTYLINE HCL 25 MG TABLET PO SCH (22:32)
[2020-07-31] MEDS: TRAMADOL HCL 50 MG TABLET PO PRN (22:33)
[2020-07-31] MEDS: ESCITALOPRAM OXALATE 10 MG TABLET PO SCH (22:35)
[2020-07-31] MEDS: TOPIRAMATE 25 MG TABLET PO SCH (22:38)
[2020-08-01 06:40] LABS: HEMATOCRIT 25.1 % (36.0-47.0); HEMOGLOBIN 8.4 g/dL (12.0-15.5); MEAN CORPUSCULAR HEMOGLOBIN 27.2 pg (27.0-33.4); MEAN CORPUSCULAR HGB CONC 33.6 g/dL (32.0-36.0); MEAN CORPUSCULAR VOLUME 81 fl (80-97); RED CELL DISTRIBUTION WIDTH 19.2 % (11.5-14.0); WHITE BLOOD COUNT 6.5 10^3/uL (4.0-10.5)
[2020-08-01 06:49] LABS: ANION GAP 9 (5-19); BLOOD UREA NITROGEN 9 mg/dL (7-20); CALCIUM 7.9 mg/dL (8.4-10.2); CARBON DIOXIDE 20 mmol/L (22-30); CHLORIDE 103 mmol/L (98-107); GLUCOSE 99 mg/dL (75-110); POTASSIUM 3.3 mmol/L (3.6-5.0)
[2020-08-01 07:36] LABS: PLATELET COUNT 94 10^3/uL (150-450)
[2020-08-01] MEDS: CEFTRIAXONE 1 GM/D5W RTU 1 GM/50 ML RTUPB IV SCH (09:46)
[2020-08-01] MEDS: CYANOCOBALAMIN (VITAMIN B-12) 1,000 MCG TABLET PO SCH (09:47)
[2020-08-01] MEDS: MAGNESIUM OXIDE 400 MG TABLET PO SCH (09:48)
[2020-08-01] MEDS: PANTOPRAZOLE SODIUM 40 MG VIAL IV SCH ×2 (09:48→21:42)
[2020-08-01] MEDS: TOPIRAMATE 100 MG TABLET PO SCH (09:49)
[2020-08-01] MEDS: ASPIRIN 81 MG TABLET, ENT COATED PO SCH (09:50)
[2020-08-01] MEDS ORDERED: TOPIRAMATE 100 MG PO SCH (10:00)
[2020-08-01] MEDS: TRAMADOL HCL 50 MG TABLET PO PRN ×3 (10:45→23:42)
--- NOTE | 2020-08-01 12:20 | PDOC PROGRESS REPORT ---
Subjective Progress Note for:: 08/01/20 Subjective:: Patient complaining of pain in the right leg. She states function is better than yesterday. She still has some short-term memory issues. Antidepressant therapy was resumed yesterday. Reason For Visit: RIGHT HIP FRACTURE Physical Exam Vital Signs: Temp Pulse Resp BP Pulse Ox 98.1 F 83 16 123/64 93 08/01/20 04:23 08/01/20 04:23 08/01/20 04:23 08/01/20 04:23 08/01/20 04:23 Intake & Output 07/31/20 08/01/20 08/02/20 06:59 06:59 06:59 Intake Total 2845 546 Output Total 1015 Balance 1830 546 Weight 60.2 kg 61.4 kg General appearance: PRESENT: no acute distress, cooperative, well-developed Head exam: PRESENT: atraumatic, normocephalic Mouth exam: PRESENT: moist, tongue midline Respiratory exam: PRESENT: clear to auscultation mariana, symmetrical, unlabored. ABSENT: rales, rhonchi, tachypnea, wheezes Cardiovascular exam: PRESENT: RRR, +S1, +S2, systolic murmur - 3/6. ABSENT: bradycardia, diastolic murmur, irregular rhythm, tachycardia GI/Abdominal exam: PRESENT: normal bowel sounds, soft. ABSENT: distended, guarding, tenderness Rectal exam: PRESENT: deferred Gentrourinary exam: ABSENT: indwelling catheter Extremities exam: PRESENT: other - Still with postop swelling right upper leg Musculoskeletal exam: PRESENT: ambulatory - Working with physical therapy, aniya l inspection. ABSENT: deformity, dislocation Neurological exam: PRESENT: alert, awake, oriented to person, oriented to place, other - Significant short-term memory issues. Short-term recall is difficult with word finding problems. Psychiatric exam: PRESENT: agitated, anxious, appropriate affect Focused psych exam: ABSENT: delusional, paranoid, restlessness Skin exam: PRESENT: dry, normal color, warm Results Laboratory Results: 08/01/20 06:16 08/01/20 06:16 08/01/20 08/01/20 06:16 06:16 WBC 6.5 RBC 3.10 L Hgb 8.4 L Hct 25.1 L MCV 81 MCH 27.2 MCHC 33.6 RDW 19.2 H Plt Count 94 L Sodium 131.7 L Potassium 3.3 L Chloride 103 Carbon Dioxide 20 L Anion Gap 9 BUN 9 Creatinine 0.59 Est GFR ( Amer) > 60 Glucose 99 Calcium 7.9 L Magnesium 1.8 07/30/20 09:00 Catheterized Urine Urine Culture - Final Escherichia Coli 07/29/20 07/29/20 07/30/20 17:20 21:30 07:50 Troponin I < 0.012 < 0.012 < 0.012 NT-Pro-B Natriuret Pep 89 07/30/20 12:58 Troponin I < 0.012 NT-Pro-B Natriuret Pep Impressions: Hip/Pelvis X-Ray 07/29/20 11:32 IMPRESSION: Comminuted and displaced basicervical fracture of the right femoral neck. Cervical Spine CT 07/29/20 12:28 IMPRESSION: Diffuse degenerative changes and facet arthropathy. No acute fracture or malalignment Mild motion artifact Head CT 07/29/20 12:28 IMPRESSION: No acute findings EVIDENCE OF ACUTE STROKE: NO. Chest X-Ray 07/30/20 00:00 IMPRESSION: Mild linear bibasilar opacities, possibly atelectasis or scarring. Femur X-Ray 07/30/20 00:00 IMPRESSION: ORIF right hip. Refer to operative note for further information. Fluoroscopy 07/30/20 00:00 IMPRESSION: ORIF right hip. Refer to operative note for further information. Assessment and Plan - Diagnosis (1) Intertrochanteric fracture of femur Qualifiers: Encounter type: initial encounter Fracture type: closed Fracture alignment: displaced Laterality: right Qualified Code(s): S72.141A - Displaced intertrochanteric fracture of right femur, initial encounter for closed fracture Is this a current diagnosis for this admission?: Yes Plan: Still complaining of pain. Will adjust pain medications. (2) Urinary tract infection Qualifiers: Urinary tract infection type: acute cystitis Hematuria presence: without hematuria Qualified Code(s): N30.00 - Acute cystitis without hematuria Is this a current diagnosis for this admission?: Yes Plan: Very sensitive E. coli. Will change to Keflex oral dosing. (3) HTN (hypertension) Qualifiers: Hypertension type: unspecified Qualified Code(s): I10 - Essential (primary) hypertension Is this a current diagnosis for this admission?: Yes Plan: Blood pressures well controlled. No medications required at this time. (4) Anemia Qualifiers: Other causes of anemia: acute posthemorrhagic Is this a current diagnosis for this admission?: Yes Plan: Hemoglobin is 8.4. We will continue to monitor. Will start iron supplement. (5) Thrombocytopenia Is this a current diagnosis for this admission?: Yes Plan: Platelet count is rebounding. Platelet count is at 94. Continue to monitor platelets. (6) Depression with anxiety Is this a current diagnosis for this admission?: Yes Plan: Elavil, Topamax and Lexapro resumed (7) Fall Qualifiers: Encounter type: sequela Qualified Code(s): W19.XXXS - Unspecified fall, sequela Is this a current diagnosis for this admission?: Yes Plan: Fall at home was the basis for the right hip intertrochanteric fracture. The patient is working with physical therapy. (8) Alcohol dependence Qualifiers: Substance use status: in remission Qualified Code(s): F10.21 - Alcohol dependence, in remission Is this a current diagnosis for this admission?: Yes Plan: Patient reports no recent alcohol use. Continue to monitor. (9) Acute metabolic encephalopathy Is this a current diagnosis for this admission?: Yes Plan: The patient exhibits short-term memory issues. This could be related to her history of alcoholism. We will continue to monitor. Thiamine 100 mg daily has been initiated. (10) Hypokalemia Is this a current diagnosis for this admission?: Yes Plan: Potassium is down to 3.3. Will initiate oral potassium chloride. Monitor electrolytes. - Time Time Spent with patient: 15-24 minutes Medications reviewed and adjusted accordingly: Yes Anticipated Discharge Disposition: [facility] Facility Anticipated Discharge Timeframe: within 48 hours
[2020-08-01] MEDS ORDERED: POTASSIUM CHLORIDE 10 MEQ TABLET.ER PO ONE (12:30)
[2020-08-01] MEDS: ESCITALOPRAM OXALATE 10 MG TABLET PO SCH (21:41)
[2020-08-01] MEDS: POTASSIUM CHLORIDE 10 MEQ TABLET.ER PO SCH (21:41)
[2020-08-01] MEDS: AMITRIPTYLINE HCL 25 MG TABLET PO SCH (21:41)
[2020-08-01] MEDS: CEPHALEXIN 500 MG CAPSULE PO SCH (21:41)
[2020-08-01] MEDS: TOPIRAMATE 25 MG TABLET PO SCH (21:42)
[2020-08-02 06:34] LABS: HEMATOCRIT 24.3 % (36.0-47.0); HEMOGLOBIN 8.2 g/dL (12.0-15.5); MEAN CORPUSCULAR HGB CONC 33.5 g/dL (32.0-36.0); MEAN CORPUSCULAR VOLUME 81 fl (80-97); PLATELET COUNT 102 10^3/uL (150-450); RED BLOOD COUNT 3.02 10^6/uL (3.72-5.28); RED CELL DISTRIBUTION WIDTH 19.2 % (11.5-14.0); WHITE BLOOD COUNT 4.7 10^3/uL (4.0-10.5)
[2020-08-02 06:53] LABS: BLOOD UREA NITROGEN 8 mg/dL (7-20); CALCIUM 8.1 mg/dL (8.4-10.2); CARBON DIOXIDE 22 mmol/L (22-30); GLUCOSE 104 mg/dL (75-110)
[2020-08-02 07:01] LABS: ANION GAP 7 (5-19); CHLORIDE 107 mmol/L (98-107)
--- NOTE | 2020-08-02 07:23 | PDOC PROGRESS REPORT ---
Subjective Progress Note for:: 08/02/20 Reason For Visit: RIGHT HIP FRACTURE 64-year-old white female now postop day 3 status post ORIF of a right intratrochanteric femur fracture. Limited progress with physical therapy. Physical Exam Vital Signs: Temp Pulse Resp BP Pulse Ox 37.2 C 82 16 148/86 H 97 08/01/20 19:35 08/01/20 19:35 08/01/20 19:35 08/01/20 19:35 08/01/20 19:35 Intake & Output 08/01/20 08/02/20 08/03/20 06:59 06:59 06:59 Intake Total 546 860 Balance 546 860 Weight 61.4 kg 60.6 kg General appearance: PRESENT: no acute distress, mild distress Respiratory exam: PRESENT: unlabored Cardiovascular exam: PRESENT: RRR Pulses: PRESENT: +1 pedal pulses bilateral Vascular exam: PRESENT: normal capillary refill GI/Abdominal exam: PRESENT: soft Rectal exam: PRESENT: deferred Results Laboratory Results: 08/02/20 06:14 08/02/20 06:14 08/01/20 08/02/20 08/02/20 06:16 06:14 06:14 WBC 6.5 4.7 RBC 3.10 L 3.02 L Hgb 8.4 L 8.2 L Hct 25.1 L 24.3 L MCV 81 81 MCH 27.2 27.0 MCHC 33.6 33.5 RDW 19.2 H 19.2 H Plt Count 94 L 102 L Sodium 135.6 L Potassium 4.0 Chloride 107 Carbon Dioxide 22 Anion Gap 7 BUN 8 Creatinine 0.52 Est GFR ( Amer) > 60 Glucose 104 Calcium 8.1 L Magnesium 1.9 07/30/20 09:00 Catheterized Urine Urine Culture - Final Escherichia Coli 07/29/20 07/29/20 07/30/20 17:20 21:30 07:50 Troponin I < 0.012 < 0.012 < 0.012 NT-Pro-B Natriuret Pep 89 07/30/20 12:58 Troponin I < 0.012 NT-Pro-B Natriuret Pep Impressions: Hip/Pelvis X-Ray 07/29/20 11:32 IMPRESSION: Comminuted and displaced basicervical fracture of the right femoral neck. Cervical Spine CT 07/29/20 12:28 IMPRESSION: Diffuse degenerative changes and facet arthropathy. No acute fracture or malalignment Mild motion artifact Head CT 07/29/20 12:28 IMPRESSION: No acute findings EVIDENCE OF ACUTE STROKE: NO. Chest X-Ray 07/30/20 00:00 IMPRESSION: Mild linear bibasilar opacities, possibly atelectasis or scarring. Femur X-Ray 07/30/20 00:00 IMPRESSION: ORIF right hip. Refer to operative note for further information. Fluoroscopy 07/30/20 00:00 IMPRESSION: ORIF right hip. Refer to operative note for further information. Status: Imported from P[facility] Assessment & Plan - Diagnosis (1) Anemia Qualifiers: Other causes of anemia: acute posthemorrhagic Is this a current diagnosis for this admission?: Yes Plan: Hematocrit is drifted down to 24.3%. Anticipate the need for further transfusions. (2) Intertrochanteric fracture of femur Qualifiers: Encounter type: initial encounter Fracture type: closed Fracture alignment: displaced Laterality: right Qualified Code(s): S72.141A - Displaced intertrochanteric fracture of right femur, initial encounter for closed fracture Is this a current diagnosis for this admission?: Yes Plan: Mobilize with physical therapy and weightbearing as tolerated basis. Anticipate care home facility once bed is available. - Time Time Spent with patient: 15-24 minutes Anticipated discharge: SNF Anticipated DC Timeframe: when bed available
[2020-08-02] MEDS ORDERED: FERROUS SULFATE 325 MG TABLET PO SCH ×2 (10:00→18:00)
[2020-08-02] MEDS: TOPIRAMATE 100 MG TABLET PO SCH (10:00)
[2020-08-02] MEDS: ASPIRIN 81 MG TABLET, ENT COATED PO SCH (10:41)
[2020-08-02] MEDS: TRAMADOL HCL 50 MG TABLET PO PRN ×2 (10:41→18:29)
[2020-08-02] MEDS: POTASSIUM CHLORIDE 10 MEQ TABLET.ER PO SCH (10:41)
[2020-08-02] MEDS: MAGNESIUM OXIDE 400 MG TABLET PO SCH (10:41)
[2020-08-02] MEDS: PANTOPRAZOLE SODIUM 40 MG VIAL IV SCH (10:42)
[2020-08-02] MEDS: CYANOCOBALAMIN (VITAMIN B-12) 1,000 MCG TABLET PO SCH (10:42)
[2020-08-02] MEDS: CEPHALEXIN 500 MG CAPSULE PO SCH (10:43)
--- NOTE | 2020-08-02 11:45 | PDOC TRANSFER SUMMARY ---
Impression - Admit/DC Date/PCP Admission Date/Primary Care Provider: 07/29/20 17:20 JAQUAN YOON NP Discharge Date: 08/02/20 - Discharge Diagnosis (1) Intertrochanteric fracture of femur Is this a current diagnosis for this admission?: Yes (2) Urinary tract infection Is this a current diagnosis for this admission?: Yes (3) HTN (hypertension) Is this a current diagnosis for this admission?: Yes (4) Anemia Is this a current diagnosis for this admission?: Yes (5) Thrombocytopenia Is this a current diagnosis for this admission?: Yes (6) Depression with anxiety Is this a current diagnosis for this admission?: Yes (7) Fall Is this a current diagnosis for this admission?: Yes (8) Alcohol dependence Is this a current diagnosis for this admission?: Yes (9) Acute metabolic encephalopathy Is this a current diagnosis for this admission?: Yes (10) Hypokalemia Is this a current diagnosis for this admission?: Yes - Additional Information Resuscitation Status: Do Not Resuscitate Discharge Diet: Regular Discharge Activity: Other - Per orthopedic surgery Referrals: [facility] [Outside] JAQUAN YOON NP [Primary Care Provider] - (They will contact you with the date and time of your appointment.) JOYCE MORTENSEN MD [ACTIVE STAFF] - (7-10 days please.) Prescriptions: Tramadol HCl [Ultram 50 mg Tablet] 50 mg PO Q6HP PRN #15 tablet PRN Reason: Home Medications: Rizatriptan Benzoate [Maxalt] 10 mg PO ASDIR PRN 03/08/18 Topiramate [Topamax] 50 mg PO QHS 03/08/18 Amitriptyline HCl [Elavil 25 mg Tablet] 25 mg PO QHS 07/30/20 Cyanocobalamin (Vitamin B-12) [Vitamin B-12 1000 mcg Tablet] 1,000 mcg PO DAILY 07/30/20 Escitalopram Oxalate [Lexapro 10 mg Tablet] 20 mg PO QHS 07/30/20 Magnesium Oxide [Mag-Ox 400 mg Tablet] 400 mg PO DAILY 07/30/20 Topiramate 100 mg PO DAILY 07/30/20 Ascorbic Acid [Vitamin C 500 mg Tablet] 500 mg PO BID tablet 08/02/20 Aspirin [Ecotrin 81 mg EC Tablet] 81 mg PO DAILY tabec 08/02/20 Cephalexin Monohydrate [Keflex 500 mg Capsule] 500 mg PO Q12 capsule 08/02/20 Ferrous Sulfate [Feosol 325 mg Tablet] 325 mg PO BID tablet 08/02/20 Pantoprazole Sodium [Protonix [address] Tablet] 40 mg PO BIDACBS tablet.dr 08/02/20 Potassium Chloride [Klor-Con 10 Meq Tablet ER] 20 meq PO Q12 tablet.er 08/02/20 Tramadol HCl [Ultram 50 mg Tablet] 50 mg PO Q6HP PRN #15 tablet 08/02/20 History of Present Illiness History of Present Illness: YEVGENIY ODONNELL is a 64 year old female history of COPD, anxiety disorder, depression, left hip fracture status post surgery, hypertension came to the emergency room with complaints of fall. As per the patient she tripped and fell started having right hip pain came to the emergency room for further evaluation. Work-up indicates a right hip intertrochanteric fracture. Ortho consult was done Dr. Espinal already saw the patient in the ER. Patient agreed to stay in the hospital for further management, she wants to be DNR/DNI. Hospital Course Hospital Course: The patient tolerated surgery and the procedure went well. She has expected postop swelling in the right thigh. There is expected ecchymosis. She has started to work with physical therapy and is doing well. She still has discomfort in the right thigh. It was also noted that she had a urinary tract infection and is being treated with antibiotic therapy. There was acute encephalopathy on admission and this certainly could be related to the infection. Toxicology screen was positive for marijuana. There is a possible history of heavy alcohol use in the past. Still with word finding difficulties. Unknown if this is her baseline. She still needs several days of antibiotic therapy. The end of treatment for her Keflex is August 08, 2020. In addition she is anemic. I have increased her iron supplement to ferrous sulfate 325 mg twice daily along with vitamin C 500 mg twice daily. Consider rechecking CBC next week. Physical Exam Vital Signs: Temp Pulse Resp BP Pulse Ox 99.0 F 82 16 148/86 H 97 08/02/20 08:56 08/01/20 19:35 08/01/20 19:35 08/01/20 19:35 08/01/20 19:35 Intake & Output 08/01/20 08/02/20 08/03/20 06:59 06:59 06:59 Intake Total 546 860 10 Balance 546 860 10 Weight 61.4 kg 60.6 kg General appearance: PRESENT: no acute distress, cooperative, well-developed Respiratory exam: PRESENT: rales - Faint rales at right base likely atelectasis, symmetrical, unlabored. ABSENT: rhonchi, tachypnea, wheezes Cardiovascular exam: PRESENT: RRR, +S1, +S2 GI/Abdominal exam: PRESENT: normal bowel sounds, soft. ABSENT: tenderness Extremities exam: PRESENT: other - Swelling right thigh. Ecchymosis in the groin area. This is nontender. Neurological exam: PRESENT: alert, awake, oriented to person, oriented to place, oriented to situation, CN II-XII grossly intact Psychiatric exam: PRESENT: appropriate affect. ABSENT: agitated, anxious Focused psych exam: ABSENT: delusional, paranoid, restlessness Results Laboratory Results: WBC 4.7 10^3/uL (4.0-10.5) 08/02/20 06:14 RBC 3.02 10^6/uL (3.72-5.28) L 08/02/20 06:14 Hgb 8.2 g/dL (12.0-15.5) L 08/02/20 06:14 Hct 24.3 % (36.0-47.0) L 08/02/20 06:14 MCV 81 fl (80-97) 08/02/20 06:14 MCH 27.0 pg (27.0-33.4) 08/02/20 06:14 MCHC 33.5 g/dL (32.0-36.0) 08/02/20 06:14 RDW 19.2 % (11.5-14.0) H 08/02/20 06:14 Plt Count 102 10^3/uL (150-450) L 08/02/20 06:14 Lymph % (Auto) 12.8 % (13-45) L 07/31/20 06:39 [place] % (Auto) 14.5 % (3-13) H 07/31/20 06:39 Eos % (Auto) 0.2 % (0-6) 07/31/20 06:39 Baso % (Auto) 0.3 % (0-2) 07/31/20 06:39 Absolute Neuts (auto) 4.8 10^3/uL (1.7-8.2) 07/31/20 06:39 Absolute Lymphs (auto) 0.8 10^3/uL (0.5-4.7) 07/31/20 06:39 Absolute Monos (auto) 1.0 10^3/uL (0.1-1.4) 07/31/20 06:39 Absolute Eos (auto) 0.0 10^3/uL (0.0-0.6) 07/31/20 06:39 Absolute Basos (auto) 0.0 10^3/uL (0.0-0.2) 07/31/20 06:39 Seg Neutrophils % 72.2 % (42-78) 07/31/20 06:39 PT 16.8 SEC (11.4-15.4) H 07/30/20 07:50 INR 1.34 07/30/20 07:50 Sodium 135.6 mmol/L (137-145) L 08/02/20 06:14 Potassium 4.0 mmol/L (3.6-5.0) 08/02/20 06:14 Chloride 107 mmol/L (98-107) 08/02/20 06:14 Carbon Dioxide 22 mmol/L (22-30) 08/02/20 06:14 Anion Gap 7 (5-19) 08/02/20 06:14 BUN 8 mg/dL (7-20) 08/02/20 06:14 Creatinine 0.52 mg/dL (0.52-1.25) 08/02/20 06:14 Est GFR ( Amer) > 60 (>60) 08/02/20 06:14 Est GFR (MDRD) Non-Af > 60 (>60) 08/02/20 06:14 Glucose 104 mg/dL (75-110) 08/02/20 06:14 Hemoglobin A1c % 4.8 % (4.7-6.0) 07/30/20 07:50 Calcium 8.1 mg/dL (8.4-10.2) L 08/02/20 06:14 Magnesium 1.9 mg/dL (1.6-2.3) 08/02/20 06:14 Total Bilirubin 1.5 mg/dL (0.2-1.3) H 07/31/20 06:39 Direct Bilirubin 0.3 mg/dL (0.0-0.4) 07/31/20 06:39 Neonat Total Bilirubin Not Reportable 07/31/20 06:39 Neonat Direct Bilirubin Not Reportable 07/31/20 06:39 Neonat Indirect Bili Not Reportable 07/31/20 06:39 AST 36 U/L (14-36) 07/31/20 06:39 ALT 13 U/L (<35) 07/31/20 06:39 Alkaline Phosphatase 50 U/L (38-126) 07/31/20 06:39 Troponin I < 0.012 ng/mL 07/30/20 12:58 NT-Pro-B Natriuret Pep 89 pg/mL (<125) 07/30/20 07:50 Total Protein 4.8 g/dL (6.3-8.2) L 07/31/20 06:39 Albumin 2.8 g/dL (3.5-5.0) L 07/31/20 06:39 Triglycerides 57 mg/dL (<150) 07/30/20 07:50 Cholesterol 117.94 mg/dL (0-200) 07/30/20 07:50 LDL Cholesterol Direct 49 mg/dL (<100) 07/30/20 07:50 VLDL Cholesterol 11.0 mg/dL (10-31) 07/30/20 07:50 HDL Cholesterol 62 mg/dL (>40) 07/30/20 07:50 Lipase 89.6 U/L (23-300) 07/30/20 07:50 TSH 2.93 uIU/mL (0.47-4.68) 07/30/20 07:50 Urine Opiates Screen NEGATIVE 07/29/20 18:46 Urine Methadone Screen NEGATIVE 07/29/20 18:46 Ur Barbiturates Screen NEGATIVE 07/29/20 18:46 Ur Phencyclidine Scrn NEGATIVE 07/29/20 18:46 Ur Amphetamines Screen NEGATIVE 07/29/20 18:46 U Benzodiazepines Scrn NEGATIVE 07/29/20 18:46 Urine Cocaine Screen NEGATIVE 07/29/20 18:46 U Marijuana (THC) Screen UNCONFIRMED POSITIVE 07/29/20 18:46 Serum Alcohol < 10 mg/dL (NONE DETECTED) 07/29/20 13:46 SARS-CoV-2 (PCR) NEGATIVE (NEGATIVE) 07/29/20 13:46 Blood Type Cancelled 07/29/20 13:46 Blood Type O POSITIVE 07/29/20 13:46 Blood Type Confirm O POSITIVE 07/29/20 13:46 Antibody Screen NEGATIVE 07/29/20 13:46 Crossmatch See Detail 07/29/20 13:46 07/29/20 07/29/20 07/30/20 17:20 21:30 07:50 Troponin I < 0.012 < 0.012 < 0.012 NT-Pro-B Natriuret Pep 89 07/30/20 12:58 Troponin I < 0.012 NT-Pro-B Natriuret Pep Impressions: Hip/Pelvis X-Ray 07/29/20 11:32 IMPRESSION: Comminuted and displaced basicervical fracture of the right femoral neck. Cervical Spine CT 07/29/20 12:28 IMPRESSION: Diffuse degenerative changes and facet arthropathy. No acute fracture or malalignment Mild motion artifact Head CT 07/29/20 12:28 IMPRESSION: No acute findings EVIDENCE OF ACUTE STROKE: NO. Chest X-Ray 07/30/20 00:00 IMPRESSION: Mild linear bibasilar opacities, possibly atelectasis or scarring. Femur X-Ray 07/30/20 00:00 IMPRESSION: ORIF right hip. Refer to operative note for further information. Fluoroscopy 07/30/20 00:00 IMPRESSION: ORIF right hip. Refer to operative note for further information. Plan Health Concerns: She has reported some family stress issues. She is improved back on her antidepressant regimen. Plan of Treatment: Transferred to [facility]. Goals: Maximize recovery from hip fracture repair. Monitor anemia. Time Spent: Greater than 30 Minutes Stroke Is this a Stroke Patient?: No Acute Heart Failure - Is this a Heart Failure Patient?: No
[2020-08-02] MEDS ORDERED: PANTOPRAZOLE SODIUM 40 MG TABLET.DR PO SCH (16:00)
[2020-08-02 17:30] VITALS: BP 134/66
[2020-08-02] MEDS ORDERED: ASCORBIC ACID 500 MG TABLET PO SCH (18:00)
== END 2020-08-02 18:46 | DRG 480 ==
LOC: ER 11:04 → EH 17:20 → 4S 19:34
PROVIDERS: ADMIT Internal Medicine; ATTEND Hospitalist
PROC: 30233N1 Transfusion of Nonautologous Red Blood Cells into Peripheral Vein, Percutaneous Approach (ICD-10-PCS; 2020-07-30)
PROC: 0QS606Z Reposition Right Upper Femur with Intramedullary Internal Fixation Device, Open Approach (ICD-10-PCS; principal; 2020-07-30 15:45)
DX: S72.141A Displaced intertrochanteric fracture of right femur, initial encounter for closed fracture (principal); G93.41 Metabolic encephalopathy; N30.00 Acute cystitis without hematuria; D62 Acute posthemorrhagic anemia; D69.6 Thrombocytopenia, unspecified; W01.0XXA Fall on same level from slipping, tripping and stumbling without subsequent striking against object, initial encounter; Y92.013 Bedroom of single-family (private) house as the place of occurrence of the external cause; B96.20 Unspecified Escherichia coli [E. coli] as the cause of diseases classified elsewhere; I10 Essential (primary) hypertension; F10.20 Alcohol dependence, uncomplicated; F41.8 Other specified anxiety disorders; E87.6 Hypokalemia; Z66 Do not resuscitate; J44.9 Chronic obstructive pulmonary disease, unspecified; G43.909 Migraine, unspecified, not intractable, without status migrainosus; M19.042 Primary osteoarthritis, left hand; Z11.59 Encounter for screening for other viral diseases; Z79.82 Long term (current) use of aspirin; Z79.899 Other long term (current) drug therapy; Z87.891 Personal history of nicotine dependence; Z88.3 Allergy status to other anti-infective agents; Z88.6 Allergy status to analgesic agent; Z82.49 Family history of ischemic heart disease and other diseases of the circulatory system; Z83.6 Family history of other diseases of the respiratory system
CPT/HCPCS: 01230; 36415; 36430; 70450; 71045; 72125; 80048; 80053; 80061; 80307; 83036; 83690; 83735; 83880; 84443; 84484; 85025; 85027; 85610; 86850; 86900; 86901; 86920; 87086; 87088; 87186; 87635; 93005; 93010; 99140; C1713; C1769; C9113; C9803; J0690; J0696; J2250; J2270; J2704; J2795; J3010; J3490; J7030; J7060; J7120; P9016